=== PATIENT | male | born 1950 | race Caucasian/White ===

== ENCOUNTER 2020-05-14 16:33 | Outpatient (REF) | payer OTHER, SELFPAY | END 2020-05-14 16:34 | disposition home or self-care (01) | LOC: HO.LAB 16:33 | PROVIDERS: Visit Provider Internal Medicine | DX: Z20.822 Contact with and (suspected) exposure to COVID-19 (principal) | CPT/HCPCS: 36415; C9803; U0003 ==

== ENCOUNTER 2020-05-20 15:07 | Outpatient (REF) | payer OTHER, SELFPAY ==
--- NOTE | ~2020-05-20 | XR_ITS ---
EXAMINATION: XR CHEST CLINICAL INFORMATION: Respiratory infection COMPARISON: September 20, 2011 TECHNIQUE: 2 views of the chest were obtained. FINDINGS: No significant abnormality is noted involving the heart, lungs, mediastinum, bony thorax or soft tissues. XR/XR chest 2V IMPRESSION: No acute disease.
== END 2020-05-20 15:08 | disposition home or self-care (01) ==
LOC: HO.XRAY 15:07
PROVIDERS: PCP Internal Medicine; Visit Provider Internal Medicine
DX: J98.8 Other specified respiratory disorders (principal)
CPT/HCPCS: 71046

== ENCOUNTER 2020-08-10 11:03 | Outpatient (REF) | payer OTHER, SELFPAY ==
[2020-08-10 11:20] LABS: MANUAL DIFF FLAG NO
[2020-08-10 12:14] LABS: Basophils Absolute Auto 0.1 X10*3/uL (0.0-0.2); Basophils Percent Auto 1.1 % (0-2); Eosinophils Absolute Auto 0.5 X10*3/uL (0.0-0.4); Hematocrit 49.9 % (42-52); Hemoglobin 16.6 g/dl (14.0-18.0); Imm Gran Abs Auto 0.01 X10*3/uL (0.00-0.03); Imm Gran Pct Auto 0.1 % (0.0-0.4); Lymphocytes Absolute Auto 1.7 X10*3/uL (1.2-4.9); Lymphocytes Percent Auto 21.9 % (20-40); Mean Corpuscular HGB Conc 33.3 g/dl (31.0-36.0); Mean Corpuscular Hemoglobin 31.4 pg (27.0-33.0); Mean Corpuscular Volume 94.3 fL (80-98); Mean Platelet Volume 12.2 fL (9.4-12.4); Monocytes Absolute Auto 0.7 X10*3/uL (0.1-1.2); Monocytes Percent Auto 8.9 % (2-11); Neutrophils Absolute Auto 4.7 X10*3/uL (2.0-8.3); Platelet Count 206 X10*3/uL (160-400); Red Blood Count 5.29 X10*6/uL (4.60-5.80); Red Cell Distribution Width 12.4 % (11.0-16.0); White Blood Count 7.6 X10*3/uL (4.8-10.8)
[2020-08-10 12:28] LABS: Glucose Urine UA NEG (NEG); Leukocyte Esterase Urine NEG (NEG); Nitrite Urine NEG (NEG); PH 6.5 (5.0-8.0); Urine Blood NEG (NEG); Urine Ketones NEG (NEG); Urine Protein NEG (NEG-TRACE)
[2020-08-10 12:30] LABS: Appearance Urine CLEAR; Color Urine YELLOW
[2020-08-10 12:48] LABS: Alanine Aminotransferase 19 U/L (0-40); Albumin Level 4.1 g/dL (3.5-5.0); Alkaline Phosphatase 56 U/L (39-117); Anion Gap 13 (12-20); Aspartate Amino Transferase 22 U/L (5-37); Bilirubin Total 0.9 mg/dL (0.0-1.0); Blood Urea Nitrogen 15 mg/dL (9-16); Calcium 9.6 mg/dL (8.4-10.2); Carbon Dioxide 28 mmol/L (22-29); Chloride 105 mmol/L (96-108); Cholesterol 172 mg/dL; Estimated Glomerular Filt Rate > 60; Glucose Fasting 126 mg/dL (60-99); HDL Cholesterol 45 mg/dL; LDL Cholesterol Calculated 100 mg/dl; Potassium 4.1 mmol/L (3.3-5.1); Sodium 142 mmol/L (135-145); Total Protein 6.4 g/dL (6.5-8.0); Triglycerides 136 mg/dL
[2020-08-10 12:58] LABS: Reflex LDLD? No
[2020-08-10 13:11] LABS: PSA,Total (Free>4and<10) 2.38 ng/mL (0.00-4.00)
== END 2020-08-10 11:04 | disposition home or self-care (01) ==
LOC: HO.LNP 11:03
PROVIDERS: PCP Internal Medicine; Visit Provider Internal Medicine
DX: Z00.00 Encounter for general adult medical examination without abnormal findings (principal); R73.09 Other abnormal glucose; E78.00 Pure hypercholesterolemia, unspecified; E83.52 Hypercalcemia
CPT/HCPCS: 80053; 80061; 81003; 84153; 85025

== ENCOUNTER 2020-08-24 10:12 | Outpatient (REF) | payer OTHER, SELFPAY ==
[2020-08-25 13:57] LABS: Immunoglobulin A 88 mg/dL (70-320)
[2020-08-26 23:27] LABS: Transglutaminase Ab IgG 1 U/mL; Transglutaminase IgA 1 U/mL
[2020-08-27 20:26] LABS: Gliadin Deamidated IgA Ab 4 Units; Gliadin Deamidated IgG Ab 2 Units
[2020-09-02 12:46] LABS: Endomysial IgA Antibody Negative (Negative)
== END 2020-08-24 10:13 | disposition home or self-care (01) ==
LOC: HO.LAB 10:12
PROVIDERS: PCP Internal Medicine; Visit Provider Internal Medicine
DX: K58.0 Irritable bowel syndrome with diarrhea (principal)
CPT/HCPCS: 36415; 82784; 83516; 86255; 86256

== ENCOUNTER 2020-10-01 09:13 | Day surgery (SDC) | payer OTHER, SELFPAY ==
[2020-09-27 15:24] VITALS: BMI 27.0
--- NOTE | 2020-09-30 10:18 | HO.ANESPROP2 ---
Documented by User: Lluvia Stauffer 09/30/20 10:25 HPI - Anesthesia Eval Consult details Narrative: 70yo M for Colonoscopy Xarelto for PAF PMFSH Past Medical History Medical History (Updated 09/28/20 @ 09:57 by Clotilde Zaidi) CAD (coronary artery disease) COVID-19 vaccine series completed GERD (gastroesophageal reflux disease) Hiatal hernia History of asthma History of cardioversion History of IBS Hyperlipemia PAF (paroxysmal atrial fibrillation) Surgical History Surgical History (Updated 09/28/20 @ 10:08 by Clotilde Zaidi) Hx of cholecystectomy Hx of colonoscopy Hx of heart artery stent Social History Social History Patient Tobacco Use Status: Former Tobacco user Quit Date: Use of substances other than those prescribed or required for medical reasons: No Are you DNR?: No Advance Directives: No Advance Directives Information Provided: No Advance Directives on File: No Meds Allergies Allergy/AdvReac Type Severity Reaction Status Date / Time atorvastatin [Lipitor] Allergy Intermediate myalgia Verified 09/27/20 15:28 Statin intolerance Allergy Intermediate myalgia Uncoded 09/27/20 15:28 Home Medications Medication Instructions Recorded Confirmed Last Taken Type albuterol sulfate [ProAir HFA] 2 puff INHALATION BID 09/27/20 09/27/20 Unknown History hyoscyamine sulfate 1 tab PO BEDTIME 09/27/20 09/27/20 Unknown History rivaroxaban [Xarelto] 1 tab PO DAILY 09/27/20 09/27/20 Unknown History sotalol 1 tab PO BID 09/27/20 09/27/20 Unknown History Exam Exam Date and Time: September 30, 2020 1018 Height,Weight and Vital Signs: Height 5 ft 11 in Weight 87.997 kg Pertinent Lab Results Pertinent Lab Results: Laboratory Tests 08/10/20 08/10/20 07:50 07:50 WBC 7.6 Hgb 16.6 Hct 49.9 Plt Count 206 Sodium 142 Potassium 4.1 Chloride 105 Carbon Dioxide 28 BUN 15 Creatinine 0.93 Narrative Narrative: EKG 06/2020 SB @ 53, QT@490 Nuc stress 2018 ECG changes are mildly stress of ischemia, however, nuclear images showed no evidence of ischemia or prior infarct Assessment and Plan Assessment Anesthesia Assessment: Chart Reviewed Documented by User: Scarlett Gee 10/01/20 10:52 PMFSH Past Medical History Medical History (Updated 09/28/20 @ 09:57 by Clotilde Zaidi) CAD (coronary artery disease) COVID-19 vaccine series completed GERD (gastroesophageal reflux disease) Hiatal hernia History of asthma History of cardioversion History of IBS Hyperlipemia PAF (paroxysmal atrial fibrillation) Surgical History Surgical History (Updated 09/28/20 @ 10:08 by Clotilde Zaidi) Hx of cholecystectomy Hx of colonoscopy Hx of heart artery stent Social History Social History Patient Tobacco Use Status: Former Tobacco user Quit Date: Use of substances other than those prescribed or required for medical reasons: No Are you DNR?: No Advance Directives: No Advance Directives Information Provided: No Advance Directives on File: No Meds Allergies Allergy/AdvReac Type Severity Reaction Status Date / Time atorvastatin [Lipitor] Allergy Intermediate myalgia Verified 09/27/20 15:28 Statin intolerance Allergy Intermediate myalgia Uncoded 09/27/20 15:28 Home Medications Medication Instructions Recorded Confirmed Last Taken Type albuterol sulfate [ProAir HFA] 2 puff INHALATION BID 09/27/20 09/27/20 Unknown History hyoscyamine sulfate 1 tab PO BEDTIME 09/27/20 09/27/20 Unknown History rivaroxaban [Xarelto] 1 tab PO DAILY 09/27/20 09/27/20 Unknown History sotalol 1 tab PO BID 09/27/20 09/27/20 Unknown History Exam Airway Mallampati Class: II TM Dist: >3cm Neck ROM: Full Heart: RrR Lungs: CTa Assessment and Plan Assessment Anesthesia Assessment: Anesthesia Plan Discussed and Chart Reviewed Final Anesthetic Review NPO: Yes ASA Class: III Final Preanesthetic Review: No Changes in Pt Med Stat and Consent Obtained/Reviewed Patient Risk: Intermediate Procedure Risk: Intermediate Anesthetic Plan Anesthetic Plan: MAC: Disposition: Standard PACU
[2020-10-01 09:19] VITALS: BP 145/73; PULSE 57; RESP 18; TEMP 36.1; O2SAT 96
[2020-10-01] MEDS: Lactated Ringers 1,000 ML 100 ML IVCONT (09:42)
[2020-10-01 11:42] VITALS: BP 107/81; PULSE 55; RESP 16; TEMP 36.1; O2SAT 95
--- NOTE | 2020-10-01 11:50 | P.BOP_ITS ---
Brief Operative Note Date of Service: 10/01/20 Pre-op diagnosis: Heme + stool Post-op diagnosis: other (Colon polyps) Procedure: Colonoscopy to the cecum and TI with snare polypectomy with placement of Resolution clips Surgeon: Jose Simms Anesthesia: MAC Was an Android Developer used for this Procedure?: No Estimated blood loss (mL): 0 Pathology: other (A. Transverse colon polyps) Condition: stable Disposition: PACU
[2020-10-01 11:57] VITALS: BP 116/67; PULSE 48; RESP 16; TEMP 36.1; O2SAT 95
--- NOTE | 2020-10-01 12:39 | OP_ITS ---
SURGEON: Jose Simsm MD PREOPERATIVE DIAGNOSIS: Heme-positive stool. POSTOPERATIVE DIAGNOSIS: PROCEDURE PERFORMED: Colonoscopy to the cecum and terminal ileum with snare polypectomy and placement of resolution clips. Full consent has been obtained from him for this, including risks of bleeding and perforation. ESTIMATED BLOOD LOSS: COMPLICATIONS: ANESTHESIA: Monitored anesthesia care. ASSISTANTS: SPECIMENS: POSTOPERATIVE DIAGNOSES: Heme-positive stool, colon polyps, diverticulosis, and internal hemorrhoids. DESCRIPTION OF PROCEDURE: The patient was placed in the left lateral decubitus position. The digital rectal exam revealed no abnormalities. The Olympus video pediatric colonoscope was entered into the rectum and advanced easily to the cecum. Once in the cecum, I did identify normal-appearing cecal pouch with appendiceal orifice and a normal-appearing ileocecal valve. The terminal ileum was cannulated and appeared normal. The scope was withdrawn back in the colon. The entire cecum and ileocecal valve appeared normal. The scope was then slowly withdrawn assessing all mucosal surfaces carefully. Preparation was excellent after a lot of irrigation and suctioning. In the transverse colon, were 2 flat grossly adenomatous polyps between 6 and 10 mm in diameter. These were both snared and recovered by suction. The polypectomy sites appeared clean, without any sign of residual polyp nor bleeding. A single resolution clip was placed at each polypectomy site with good deployment and good hemostasis, given that he has to go back on his Xarelto. I did not visualize any other polyps, colitis, nor angiodysplasia. There was a mild amount of sigmoid diverticulosis. In the rectum, scope was retroflexed visualizing small internal hemorrhoids, but no other pathology. The rectal mucosa appeared normal. The scope was straightened out and withdrawn from the patient. He tolerated the procedure well and was returned to the recovery area in stable condition. IMPRESSION: 1. Colon polyps, status post snare polypectomy and placement of resolution clips. 2. Diverticulosis. 3. Internal hemorrhoids. PLAN: The results of the pathology will be checked. Given the gross appearance, I would recommend a repeat colonoscopy in 5 years. He was advised to resume his Xarelto tomorrow. He was advised to try the cholestyramine prescription that I gave him in regard to his loose bowel movements. He will see me in 5 years for a followup colonoscopy and would otherwise see me on a p.r.n. basis. MD LUBA Bryant/LENORA / [id number]
== END 2020-10-01 12:38 | disposition home or self-care (01) ==
PROVIDERS: PCP Internal Medicine; Visit Provider Internal Medicine
PROC: 0DJD8ZZ Inspection of Lower Intestinal Tract, Via Natural or Artificial Opening Endoscopic (ICD-10-PCS; CPT 45378; principal; 2020-10-01 10:40)
DX: R19.5 Other fecal abnormalities (principal); D12.3 Benign neoplasm of transverse colon; K58.0 Irritable bowel syndrome with diarrhea; K57.30 Diverticulosis of large intestine without perforation or abscess without bleeding; K64.8 Other hemorrhoids; K21.9 Gastro-esophageal reflux disease without esophagitis; I25.10 Atherosclerotic heart disease of native coronary artery without angina pectoris; Z98.61 Coronary angioplasty status; I48.0 Paroxysmal atrial fibrillation; Z79.01 Long term (current) use of anticoagulants; Z79.899 Other long term (current) drug therapy; Z90.49 Acquired absence of other specified parts of digestive tract; Z87.891 Personal history of nicotine dependence
CPT/HCPCS: 45385; 88305

== ENCOUNTER 2021-08-16 10:41 | Outpatient (REF) | payer OTHER, SELFPAY ==
[2021-08-16 10:45] LABS: MANUAL DIFF FLAG NO
[2021-08-16 11:20] LABS: Basophils Absolute Auto 0.1 X10*3/uL (0.0-0.2); Basophils Percent Auto 0.9 % (0-2); Eosinophils Absolute Auto 0.3 X10*3/uL (0.0-0.4); Eosinophils Percent Auto 3.6 % (0-4); Hematocrit 52.3 % (42.0-52.0); Hemoglobin 17.3 g/dl (14.0-18.0); Imm Gran Abs Auto 0.02 X10*3/uL (0.00-0.03); Imm Gran Pct Auto 0.3 % (0.0-0.4); Lymphocytes Percent Auto 25.5 % (20-40); Mean Corpuscular HGB Conc 33.1 g/dl (31.0-36.0); Mean Corpuscular Hemoglobin 31.4 pg (27.0-33.0); Mean Corpuscular Volume 94.9 fL (80.0-98.0); Mean Platelet Volume 12.5 fL (9.4-12.4); Monocytes Absolute Auto 0.7 X10*3/uL (0.1-1.2); Monocytes Percent Auto 8.8 % (2-11); Neutrophils Absolute Auto 4.8 x10*3/uL (2.0-8.3); Neutrophils Percent Auto 60.9 % (45-73); Platelet Count 209 X10*3/uL (160-400); Red Blood Count 5.51 X10*6/uL (4.60-5.80); Red Cell Distribution Width 13.2 % (11.0-16.0); White Blood Count 7.9 X10*3/uL (4.8-10.8)
[2021-08-16 11:37] LABS: Estimated Average Glucose 128 mg/dL; Hemoglobin A1c % 6.1 %
[2021-08-16 11:55] LABS: Alanine Aminotransferase 31 U/L (0-40); Alkaline Phosphatase 64 U/L (39-117); Anion Gap 10 (12-20); Aspartate Amino Transferase 29 U/L (5-37); Bilirubin Total 0.9 mg/dL (0.0-1.0); Blood Urea Nitrogen 16 mg/dL (9-16); Calcium 9.9 mg/dL (8.4-10.2); Carbon Dioxide 27 mmol/L (22-29); Chloride 108 mmol/L (96-108); Cholesterol 151 mg/dL; Estimated Glomerular Filt Rate > 60; Glucose Fasting 118 mg/dL (60-99); HDL Cholesterol 51 mg/dL; LDL Cholesterol Calculated 84 mg/dl; Potassium 4.3 mmol/L (3.3-5.1); Sodium 141 mmol/L (135-145); Total Protein 6.6 g/dL (6.5-8.0); Triglycerides 81 mg/dL
[2021-08-16 12:03] LABS: PSA,Total (Free>4and<10) 2.24 ng/mL (0.00-4.00)
[2021-08-16 12:23] LABS: Appearance Urine CLEAR; Color Urine YELLOW; Glucose Urine UA NEG (NEG); Leukocyte Esterase Urine NEG (NEG); Nitrite Urine NEG (NEG); Specific Gravity - Urine <= 1.005 (1.005-1.025); Urine Blood NEG (NEG); Urine Ketones NEG (NEG); Urine Protein NEG (NEG-TRACE)
== END 2021-08-16 10:42 | disposition home or self-care (01) ==
LOC: HO.LNP 10:41
PROVIDERS: PCP Internal Medicine; Visit Provider Internal Medicine
DX: Z00.00 Encounter for general adult medical examination without abnormal findings (principal); Z12.5 Encounter for screening for malignant neoplasm of prostate; R73.03 Prediabetes; E78.00 Pure hypercholesterolemia, unspecified; E83.52 Hypercalcemia; I25.10 Atherosclerotic heart disease of native coronary artery without angina pectoris
CPT/HCPCS: 80053; 80061; 81003; 83036; 84153; 85025

== ENCOUNTER 2022-02-17 10:44 | Outpatient (REF) | payer OTHER, SELFPAY ==
[2022-02-17 11:23] LABS: Alanine Aminotransferase 24 U/L (0-40); Albumin Level 4.2 g/dL (3.5-5.0); Alkaline Phosphatase 67 U/L (39-117); Aspartate Amino Transferase 27 U/L (5-37); Bilirubin Direct 0.3 mg/dL (0.0-0.5); Bilirubin Total 0.9 mg/dL (0.0-1.0); Cholesterol 167 mg/dL; Glucose Fasting 127 mg/dL (60-99); HDL Cholesterol 48 mg/dL; LDL Cholesterol Calculated 101 mg/dl; Total Protein 6.7 g/dL (6.5-8.0); Triglycerides 94 mg/dL
[2022-02-17 11:29] LABS: Estimated Average Glucose 120 mg/dL; Hemoglobin A1c % 5.8 %
[2022-02-17 13:29] LABS: Reflex LDLD? No
== END 2022-02-17 10:45 | disposition home or self-care (01) ==
LOC: HO.LNP 10:44
PROVIDERS: Visit Provider Internal Medicine
DX: R73.03 Prediabetes (principal); E78.00 Pure hypercholesterolemia, unspecified
CPT/HCPCS: 80061; 80076; 82947; 83036

== ENCOUNTER 2022-08-17 10:38 | Outpatient (REF) | payer OTHER, SELFPAY ==
[2022-08-17 10:41] LABS: MANUAL DIFF FLAG NO
[2022-08-17 10:46] LABS: Basophils Absolute Auto 0.1 X10*3/uL (0.0-0.2); Eosinophils Absolute Auto 0.3 X10*3/uL (0.0-0.4); Eosinophils Percent Auto 3.2 % (0-4); Hematocrit 52.9 % (42.0-52.0); Hemoglobin 17.9 g/dl (14.0-18.0); Imm Gran Abs Auto 0.02 X10*3/uL (0.00-0.03); Imm Gran Pct Auto 0.2 % (0.0-0.4); Lymphocytes Absolute Auto 2.1 X10*3/uL (1.2-4.9); Lymphocytes Percent Auto 25.5 % (20-40); Mean Corpuscular HGB Conc 33.8 g/dl (31.0-36.0); Mean Corpuscular Volume 94.6 fL (80.0-98.0); Mean Platelet Volume 12.7 fL (9.4-12.4); Monocytes Absolute Auto 0.7 X10*3/uL (0.1-1.2); Monocytes Percent Auto 8.7 % (2-11); Neutrophils Absolute Auto 5.1 x10*3/uL (2.0-8.3); Neutrophils Percent Auto 61.4 % (45-73); Platelet Count 204 X10*3/uL (160-400); Red Blood Count 5.59 X10*6/uL (4.60-5.80); Red Cell Distribution Width 12.8 % (11.0-16.0); White Blood Count 8.4 X10*3/uL (4.8-10.8)
[2022-08-17 10:49] LABS: Appearance Urine Clear; Color Urine Yellow; Glucose Urine UA Negative (Negative); Leukocyte Esterase Urine Negative (Negative); Nitrite Urine Negative (Negative); PH 6.5 (5.0-9.0); Urine Blood Negative (Negative); Urine Ketones Negative (Negative); Urine Protein Negative (Neg-Trace)
[2022-08-17 10:56] LABS: Bacteria Urine None Seen (None Seen); Hyaline Casts Urine 0-2 /LPF (0-2); RBC Urine 0-2 /HPF (0-2); Squamous Epithelial Cell Urine 0-2 /HPF (0-2); WBC Urine 0-5 /HPF (0-5)
[2022-08-17 11:01] LABS: Estimated Average Glucose 123 mg/dL; Hemoglobin A1c % 5.9 %
[2022-08-17 11:06] LABS: Alanine Aminotransferase 23 U/L (0-40); Alkaline Phosphatase 67 U/L (39-117); Anion Gap 13 (12-20); Aspartate Amino Transferase 25 U/L (5-37); Bilirubin Total 1.1 mg/dL (0.0-1.0); Blood Urea Nitrogen 18 mg/dL (9-16); Calcium 10.2 mg/dL (8.4-10.2); Carbon Dioxide 28 mmol/L (22-29); Chloride 106 mmol/L (96-108); Cholesterol 148 mg/dL; Estimated Glomerular Filt Rate 55; Glucose Fasting 138 mg/dL (60-99); HDL Cholesterol 47 mg/dL; LDL Cholesterol Calculated 81 mg/dl; Potassium 4.6 mmol/L (3.3-5.1); Sodium 142 mmol/L (135-145); Total Protein 6.3 g/dL (6.5-8.0); Triglycerides 102 mg/dL
[2022-08-17 11:26] LABS: PSA,Total (Free>4and<10) 2.78 ng/mL (0.00-4.00)
[2022-08-17 12:19] LABS: Creatinine Urine 116.44 mg/dL; Microalbum/Creatinine Ratio Ur 12.8 ug/mg cr
== END 2022-08-17 10:39 | disposition home or self-care (01) ==
LOC: HO.LNP 10:38
PROVIDERS: PCP Internal Medicine; Visit Provider Internal Medicine
DX: Z00.00 Encounter for general adult medical examination without abnormal findings (principal); Z12.5 Encounter for screening for malignant neoplasm of prostate; E78.00 Pure hypercholesterolemia, unspecified; R73.03 Prediabetes
CPT/HCPCS: 80053; 80061; 81001; 82043; 83036; 84153; 85025

== ENCOUNTER 2022-08-24 15:31 | Outpatient (REF) | payer OTHER, SELFPAY ==
[2022-08-24 16:59] LABS: Digoxin < 0.2 ng/mL (0.8-2.0)
== END 2022-08-24 15:32 | disposition home or self-care (01) ==
LOC: HO.LNP 15:31
PROVIDERS: Visit Provider Internal Medicine
DX: I25.10 Atherosclerotic heart disease of native coronary artery without angina pectoris (principal); Z79.899 Other long term (current) drug therapy
CPT/HCPCS: 80162

== ENCOUNTER 2023-02-26 13:27 | Outpatient (REF) | payer OTHER, SELFPAY ==
[2023-02-27 14:44] LABS: Influenza A PCR NEGATIVE (Negative); Influenza B PCR NEGATIVE (Negative); Resp Syncy Virus RNA Qual PCR NEGATIVE (Negative); SARS COV2 PCR INHOUSE POSITIVE (Negative)
== END 2023-02-26 13:28 | disposition home or self-care (01) ==
LOC: HO.LNP 13:27
PROVIDERS: Visit Provider Internal Medicine
DX: R43.9 Unspecified disturbances of smell and taste (principal); Z20.822 Contact with and (suspected) exposure to COVID-19
CPT/HCPCS: 0241U

== ENCOUNTER 2023-02-26 14:49 | Outpatient (AMB) | payer OTHER, SELFPAY ==
--- NOTE | 2023-02-26 16:01 | AM.OFFWIN_ITS ---
Intake Vital Signs 02/26/23 16:05 Height 5 ft 11 in Weight 190 lb 2 oz BMI 26.5 BP 112/70 Blood Pressure Location Lt brachial Position Sitting Pulse 80 Pulse Source Pulse Oximeter Temp 97.8 F Temp Source Temporal Artery Scan Pulse Oximetry (%) 96 Oxygen Delivery Method Room Air Intake Visit Reasons: EP Cough congestion lost voice (lobby masked) Intake Note: pt is here for c.o cough and congestion Patient Tobacco Use Status: Former Tobacco user Quit Date: Allergies atorvastatin [Lipitor] Allergy (Intermediate, Verified 02/26/23 16:38) myalgia Statin intolerance Allergy (Intermediate, Uncoded 02/26/23 16:38) myalgia Medication List - Last Reconciled 02/26/23 by Avtar Muller MD albuterol sulfate 90 mcg/actuation (ProAir HFA) 2 puffs inhalation BID azithromycin (Zithromax) take 500 mg today (day 1), then 250 mg for 4 days (days 2-5) PO diltiazem HCl ER (Tiadylt ER) 360 mg PO DAILY hyoscyamine sulfate ER 1 tab PO BEDTIME metoprolol succinate ER 50 mg PO BID pravastatin 20 mg PO DAILY prednisone 60 mg (3 x 20 mg) PO DAILY rivaroxaban (Xarelto) 1 tab PO DAILY sotalol 1 tab PO BID Do you need a note to return to daycare/school/sports/work: Yes HPI EP Cough congestion lost voice (lobby masked) HPI Details Patient presents for a sick visit. Reporting symptoms of sinus congestion, sore throat and difficulty swallowing. Low-grade fever. No family member is sick. No recent travel. Patient reports symptoms of malaise and fatigue. [facility] Medical History (Updated 09/28/20 @ 09:57 by Clotilde Zaidi RN) History of cardioversion COVID-19 vaccine series completed CAD (coronary artery disease) History of asthma PAF (paroxysmal atrial fibrillation) History of IBS Hyperlipemia Hiatal hernia GERD (gastroesophageal reflux disease) Surgical History (Updated 09/28/20 @ 10:08 by Clotilde Zaidi RN) Hx of cholecystectomy Hx of colonoscopy Hx of heart artery stent Social History Patient Tobacco Use Status: Former Tobacco user Quit Date: Physical Exam Vital Signs: Last Vital Signs Temp 97.8 F 02/26/23 16:05 Pulse 80 02/26/23 16:05 BP 112/70 02/26/23 16:05 Pulse Ox 96 02/26/23 16:05 Oxygen Delivery Method Room Air 02/26/23 16:05 BMI result Body Mass Index 26.5 Const General: cooperative and healthy appearing Nutritional Appearance: well nourished Orientation/consciousness: patient oriented x3 Limitations: no limitations HEENT Head: Yes normal to inspection Eyes General: appearance normal, both eyes and all related structures Neck Neck: Yes normal visual inspection Chest Chest palpation & inspection: normal palpation of entire chest wall Resp Effort & Inspection: normal respiratory effort Neuro General: patient oriented x3 Assessment & Plan Assessment & Plan (1) Upper respiratory tract infection: Code(s): J06.9 - Acute upper respiratory infection, unspecified Plan: Antibiotics ordered. Increase fluid intake. Tylenol for aches and pains. If symptoms worsen, follow-up here for a recheck. Orders: Orders SARS-CoV2/FLU/RSV Today R43.9 - Unspecified disturbances of smell and taste Medications: New azithromycin (Zithromax) take 500 mg today (day 1), then 250 mg for 4 days (days 2-5) PO 6 tabs 0RF prednisone 60 mg (3 x 20 mg) PO DAILY 9 tabs 0RF Coding Level of Care Code Est Pt Level 4 (34717) Diagnoses Upper respiratory tract infection J06.9
[2023-02-26 16:05] VITALS: BP 112/70; PULSE 80; TEMP 36.6; O2SAT 96; BMI 26.5
== END 2023-02-26 16:45 | disposition home or self-care (01) ==
PROVIDERS: PCP Internal Medicine; Visit Provider Internal Medicine
DX: J06.9 Acute upper respiratory infection, unspecified (principal)
CPT/HCPCS: 99214

== ENCOUNTER 2023-03-22 10:44 | Outpatient (REF) | payer OTHER, SELFPAY ==
[2023-03-22 11:16] LABS: Cholesterol 166 mg/dL (<200); HDL Cholesterol 54 mg/dL (>40); LDL Cholesterol Calculated 94 mg/dL (<100); Triglycerides 92 mg/dL (<150)
[2023-03-22 11:18] LABS: Alanine Aminotransferase 23 U/L (0-40); Albumin Level 3.9 g/dL (3.5-5.0); Alkaline Phosphatase 68 U/L (39-117); Aspartate Amino Transferase 26 U/L (5-37); Bilirubin Direct 0.3 mg/dL (0.0-0.5); Bilirubin Total 0.9 mg/dL (0.0-1.0); Glucose Fasting 123 mg/dL (60-99); Total Protein 6.6 g/dL (6.5-8.0)
[2023-03-22 11:34] LABS: Estimated Average Glucose 131 mg/dL; Hemoglobin A1c % 6.2 % (<6.0)
[2023-03-22 12:15] LABS: Reflex LDLD? No
== END 2023-03-22 10:45 | disposition home or self-care (01) ==
LOC: HO.LNP 10:44
PROVIDERS: Visit Provider Internal Medicine
DX: E78.00 Pure hypercholesterolemia, unspecified (principal); R73.03 Prediabetes
CPT/HCPCS: 80061; 80076; 82947; 83036

== ENCOUNTER 2023-08-23 11:58 | Outpatient (REF) | payer OTHER, SELFPAY ==
[2023-08-23 12:04] LABS: MANUAL DIFF FLAG NO
[2023-08-23 12:37] LABS: Estimated Average Glucose 131 mg/dL; Hemoglobin A1c % 6.2 % (<6.0)
[2023-08-23 12:40] LABS: Basophils Absolute Auto 0.1 X10*3/uL (0.0-0.2); Basophils Percent Auto 0.9 % (0-2); Eosinophils Absolute Auto 0.3 X10*3/uL (0.0-0.4); Eosinophils Percent Auto 4.1 % (0-4); Hemoglobin 17.5 g/dl (14.0-18.0); Imm Gran Abs Auto 0.03 X10*3/uL (0.00-0.03); Imm Gran Pct Auto 0.4 % (0.0-0.4); Lymphocytes Absolute Auto 1.8 X10*3/uL (1.2-4.9); Lymphocytes Percent Auto 22.7 % (20-40); Mean Corpuscular HGB Conc 34.3 g/dl (31.0-36.0); Mean Corpuscular Hemoglobin 32.3 pg (27.0-33.0); Mean Corpuscular Volume 94.1 fL (80.0-98.0); Monocytes Absolute Auto 0.6 X10*3/uL (0.1-1.2); Monocytes Percent Auto 7.8 % (2-11); Neutrophils Absolute Auto 5.1 x10*3/uL (2.0-8.3); Neutrophils Percent Auto 64.1 % (45-73); Platelet Count 171 X10*3/uL (160-400); Red Blood Count 5.42 X10*6/uL (4.60-5.80); Red Cell Distribution Width 13.1 % (11.0-16.0); White Blood Count 7.9 X10*3/uL (4.8-10.8)
[2023-08-23 12:45] LABS: Alanine Aminotransferase 23 U/L (0-40); Alkaline Phosphatase 61 U/L (39-117); Anion Gap 14 (12-20); Aspartate Amino Transferase 25 U/L (5-37); Blood Urea Nitrogen 14 mg/dL (9-16); Calcium 9.9 mg/dL (8.4-10.2); Carbon Dioxide 24 mmol/L (22-29); Chloride 107 mmol/L (96-108); Cholesterol 150 mg/dL (<200); Estimated Glomerular Filt Rate > 60; Glucose Random 137 mg/dL (60-115); HDL Cholesterol 52 mg/dL (>40); LDL Cholesterol Calculated 83 mg/dL (<100); Potassium 4.1 mmol/L (3.3-5.1); Sodium 141 mmol/L (135-145); Total Protein 6.5 g/dL (6.5-8.0); Triglycerides 78 mg/dL (<150)
[2023-08-23 12:53] LABS: Digoxin < 0.2 ng/mL (0.8-2.0)
[2023-08-23 12:57] LABS: PSA,Total (Free>4and<10) 2.76 ng/mL (0.00-4.00)
== END 2023-08-23 11:59 | disposition home or self-care (01) ==
LOC: HO.LNP 11:58
PROVIDERS: Visit Provider Internal Medicine
DX: Z00.00 Encounter for general adult medical examination without abnormal findings (principal); R73.09 Other abnormal glucose; E78.00 Pure hypercholesterolemia, unspecified; E83.52 Hypercalcemia
CPT/HCPCS: 80053; 80061; 80162; 83036; 84153; 85025

== ENCOUNTER 2023-08-30 15:57 | Outpatient (REF) | payer MEDICARE, SELFPAY ==
[2023-08-30 16:29] LABS: Appearance Urine Clear; Color Urine Yellow; Glucose Urine UA Negative (Negative); Leukocyte Esterase Urine Negative (Negative); Nitrite Urine Negative (Negative); PH 6.5 (5.0-9.0); Urine Blood Negative (Negative); Urine Ketones Negative (Negative); Urine Protein Negative (Neg-Trace)
[2023-08-30 16:34] LABS: Bacteria Urine None Seen (None Seen); Hyaline Casts Urine 0-2 /LPF (0-2); RBC Urine 0-2 /HPF (0-2); Squamous Epithelial Cell Urine 0-2 /HPF (0-2); WBC Urine 0-5 /HPF (0-5)
[2023-08-30 17:36] LABS: Creatinine Urine 97.88 mg/dL; Microalbumin Urine < 5.0 mg/L
== END 2023-08-30 15:58 | disposition home or self-care (01) ==
LOC: HO.LNP 15:57
PROVIDERS: Visit Provider Internal Medicine
DX: I25.10 Atherosclerotic heart disease of native coronary artery without angina pectoris (principal); E78.00 Pure hypercholesterolemia, unspecified; R73.09 Other abnormal glucose
CPT/HCPCS: 81001; 82043; 82570

== ENCOUNTER 2024-03-06 15:30 | Outpatient (REF) | payer MEDICARE, SELFPAY ==
--- NOTE | ~2024-03-06 | XR_ITS ---
EXAMINATION: XR CHEST CLINICAL INFORMATION: PAROXYSMAL ATRIAL FIBRILLATION COMPARISON: X-ray dated May 20, 2020. TECHNIQUE: 2 views of the chest were obtained. FINDINGS: No consolidation pleural effusion or pneumothorax. No hyperinflation. Cardiomediastinal silhouette demonstrates calcified plaque aortic arch. Calcification throughout the anterior longitudinal ligament axial skeleton. No acute fracture or gross listhesis. Osteopenia versus process. XR/XR chest 2V IMPRESSION: No acute airspace disease. Concerning ankylosing spondylitis, thoracic spine. Electronically signed by: Bryan Rivera MD 03/07/2024 08:24 AM IVONNE
== END 2024-03-06 15:31 | disposition home or self-care (01) ==
LOC: HO.XRAY 15:30
PROVIDERS: PCP Internal Medicine; Visit Provider Internal Medicine
DX: I48.0 Paroxysmal atrial fibrillation (principal)
CPT/HCPCS: 71046

== ENCOUNTER → 2024-03-06 15:36 | Outpatient (BNV) | payer OTHER, MEDICARE, SELFPAY | PROVIDERS: PCP Internal Medicine; Visit Provider Radiology Diagnostic Radiology | DX: I48.0 Paroxysmal atrial fibrillation (principal) | CPT/HCPCS: 71046 ==

== ENCOUNTER 2024-03-11 13:21 | Outpatient (REF) | payer MEDICARE, SELFPAY | END 2024-03-11 13:22 | disposition home or self-care (01) | LOC: HO.XRAY 13:21 | PROVIDERS: PCP Internal Medicine; Visit Provider Internal Medicine | DX: M45.4 Ankylosing spondylitis of thoracic region (principal) | CPT/HCPCS: 72100 ==

== ENCOUNTER 2024-08-28 10:42 | Outpatient (REF) | payer MEDICARE, SELFPAY ==
[2024-08-28 11:06] LABS: Appearance Urine Clear; Color Urine Yellow; Glucose Urine UA Negative (Negative); Leukocyte Esterase Urine Negative (Negative); Nitrite Urine Negative (Negative); PH 7.5 (5.0-9.0); Urine Blood Negative (Negative); Urine Ketones Negative (Negative); Urine Protein Negative (Neg-Trace)
[2024-08-28 11:10] LABS: Bacteria Urine None Seen (None Seen); Hyaline Casts Urine 0-2 /LPF (0-2); RBC Urine 0-2 /HPF (0-2); Squamous Epithelial Cell Urine 0-2 /HPF (0-2); WBC Urine 0-5 /HPF (0-5)
[2024-08-28 11:15] LABS: Estimated Average Glucose 131 mg/dL; Hemoglobin A1C 193.7043 umol/L; Hemoglobin A1c % 6.2 % (<6.0); Total Hemoglobin (HGBA1C) 4354.5219 umol/L
[2024-08-28 11:19] LABS: Basophils Absolute Auto 0.1 X10*3/uL (0.0-0.2); Basophils Percent Auto 0.8 % (0-2); Eosinophils Absolute Auto 0.5 X10*3/uL (0.0-0.4); Eosinophils Percent Auto 6.3 % (0-4); Hemoglobin 17.5 g/dl (14.0-18.0); Imm Gran Abs Auto 0.04 X10*3/uL (0.00-0.03); Imm Gran Pct Auto 0.5 % (0.0-0.4); Lymphocytes Absolute Auto 1.9 X10*3/uL (1.2-4.9); Lymphocytes Percent Auto 24.3 % (20-40); MANUAL DIFF FLAG SCAN; Mean Corpuscular HGB Conc 34.3 g/dl (31.0-36.0); Mean Corpuscular Hemoglobin 32.2 pg (27.0-33.0); Mean Corpuscular Volume 93.9 fL (80.0-98.0); Monocytes Absolute Auto 0.6 X10*3/uL (0.1-1.2); Monocytes Percent Auto 8.3 % (2-11); Neutrophils Absolute Auto 4.5 x10*3/uL (2.0-8.3); Neutrophils Percent Auto 59.8 % (45-73); PLT CLUMP 1; Red Blood Count 5.43 X10*6/uL (4.60-5.80); Red Cell Distribution Width 13.5 % (11.0-16.0); SCAN SMEAR FLAG 1
[2024-08-28 11:22] LABS: Alanine Aminotransferase 26 U/L (0-40); Alkaline Phosphatase 70 U/L (39-117); Anion Gap 11 (12-20); Aspartate Amino Transferase 33 U/L (5-37); Bilirubin Total 0.8 mg/dL (0.0-1.0); Blood Urea Nitrogen 14 mg/dL (9-16); Calcium 10.5 mg/dL (8.4-10.2); Carbon Dioxide 29 mmol/L (22-29); Chloride 107 mmol/L (96-108); Cholesterol 163 mg/dL (<200); Estimated Glomerular Filt Rate > 60; Glucose Fasting 145 mg/dL (60-99); HDL Cholesterol 52 mg/dL (>40); LDL Cholesterol Calculated 95 mg/dL (<100); Potassium 4.4 mmol/L (3.3-5.1); Sodium 143 mmol/L (135-145); Total Protein 6.6 g/dL (6.5-8.0); Triglycerides 82 mg/dL (<150)
[2024-08-28 11:42] LABS: PSA,Total (Free>4and<10) 4.37 ng/mL (0.00-4.00)
[2024-08-28 11:44] LABS: Platelet Count 153 X10*3/uL (160-400); White Blood Count 7.6 X10*3/uL (4.8-10.8)
[2024-08-28 11:45] LABS: Mean Platelet Volume 12.8 fL (9.4-12.4); SLIDE REVIEW VERIFIED
--- OUTSIDE RECORDS SUMMARY | 2024-08-28 11:49 | XMS_ITS | Patient Health Record ---
Author Organization [facility] Address [address] [place] [address] Care Team Providers Care Reed Or Wind Instrument Repairer Name Role Phone Herman Figueroa MD Primary Care Provider Jose Gonzalez Unavailable [phone] Allergies Allergen (clinical drug ingredient) Drug/Non Drug Allergy documented on EMR Reaction Allergy Type Onset Date Status seasonal allergies (uncoded) Unknown Allergy Active Reason For Referral No Information Medications Medication SIG (Take, Route, Frequency, Duration) Notes Start Date End Date Status Cholestyramine 4 GM/DOSE 1/2 to 1 scoop Orally QD or BID for loose stools for 30 day(s) 08/24/2020 Active Hyoscyamine Sulfate ER 0.375 MG 1 tablet Orally every 12 hrs for 30 day(s) QD in afternoon Active Sotalol HCl 120 MG 1 tablet Orally bid Active Xarelto 20 MG 1 tablet with food Orally Once a day for 30 day(s) Active ProAir HFA Active Pravastatin Sodium 20 MG 1 tablet Orally Once a day Active Immunizations Vaccine Route Administration Date Status Comme nts Influenza Unknown 12/16/2019 Administered Problems Problem Type SNOMED Code ICD Code Onset Dates Problem Status W/U Status Risk Notes Problem 654365408 Irritable bowel syndrome with diarrhea (K58.0) Active confirmed Problem 78675868 Heme + stool (R19.5) Active confirmed Problem Diverticulosis of colon (768348090) Diverticulosis of colon (K57.30) Active confirmed Plan Of Treatment Pending Test Test Name Order Date CELIAC PANEL #10 08/24/2020 Pathology 10/01/2020 Future Test Test Name Order Date COLONOSCOPY 07/04/2012 COLONOSCOPY 08/24/2020 Insurance Providers Payer Name Payer Address Payer Phone Subscriber Number Group Number Insured Name Patient Relationship to Insured Coverage Start Date Coverage End Date [facility] [address] [place] [id number] [phone] [id number] GINA RODRIGUEZ Self - patient is the insured Medical (General) History Medical History History ICD Code Hiatal hernia-occasional GERD-better wit h change of diet Cardiac stent placement x 1 in 2008-no M I-fine since Allergies-? asthma Denies CT,DM,CVA,renal disease Hyperlipidemia Afib Negative screening colonoscopy in 08/2012 IBS-longstanding > 20 years Surgical History Surgery Date(Month/Year) Cholecystecomy in 2001 Cyst removed from back
--- OUTSIDE RECORDS SUMMARY | 2024-08-28 11:49 | XMS_ITS ---
Author Organization Herman Figueroa MD Address [address] [place] [phone] Care Team Providers Care Lens Silverer Name Role Phone Herman Figueroa Primary Care Provider REASON FOR VISIT REFILL XARELTO Medications Medication SIG (Take, Route, Frequency, Duration) Notes Start Date End Date Status Xarelto 20 mg TAKE 1 TABLET DAILY WITH FOOD Orally Once a day for 90 days Active Encounters Encounter Location Date Provider Diagnosis Herman Figueroa MD [address] [place] [phone] 07/08/2024 Herman Figueroa Paroxysmal atrial fibrillation I48.0 Assessments Encounter Date Diagnosis (ICD Code) Assessment Notes Treatment Notes Treatment Clinical Notes Section Notes 07/08/2024 Paroxysmal atrial fibrillation (ICD-10 - I48.0) Plan Of Treatment Medication Medication Name Sig Start Date Stop Date Notes Xarelto 20 mg TAKE 1 TABLET DAILY WITH FOOD Orally Once a day for 90 days Next Appt Details Provider Name:Herman gardner, 09/04/2024 02:30:00 PM, [address], [address], [place], [place], [phone], Progress Notes * Agusto RODRIGUEZ RDOB:1950 ( 73 yo M)Acc No.[id number]:07/08/2024 Patient:?Agusto RODRIGUEZ :1950???Age:73 Y???Sex:Male Address:[address] [place] [address] * Refills? Refill Xarelto Tablet, 20 mg, Orally, 90, TAKE 1 TABLET DAILY WITH FOOD, Once a day, 90 days, Refills=5 * true * Date:? Generated for Hamilton walker/Edgardo/Lisasmitting on:?08/28/2024 11:48 AM EDT
--- OUTSIDE RECORDS SUMMARY | 2024-08-28 11:49 | XMS_ITS ---
Author Organization Herman Figueroa MD Address [address] [place], [place] [id number] Care Team Providers Care Bomb Technician Name Role Phone Carolina Herman Primary Care Provider [phone] Allergies Allergen (clinical drug ingredient) Drug/Non Drug Allergy documented on EMR Reaction Allergy Type Onset Date Status atorvastatin Lipitor myalgia Drug Allergy Acti ve Results Component Value Reference Range Notes Complete Blood Count Auto Di ff (Not yet reviewed by provider) Interpretation: Performing Lab:[facility], [address] [place] [id number] Notes/Report: White Blood Count 7.6 4.8-10.8 X10*3/uL Red Blood Count 5.43 4.60-5.80 X10*6/uL Hemoglobin 17.5 14.0-18.0 g/dl Hematocrit 51.0 42.0-52.0 % Mean Corpuscular Volume 93.9 80.0-98.0 fL Mean Corpuscular Hemoglobin 32.2 27.0-33.0 pg Mean Corpuscular HGB Conc 34.3 31.0-36.0 g/dl Red Cell Distribution Width 13.5 11.0-16.0 % Platelet Count 153 160-400 X10*3/uL Mean Platelet Volume 12.8 9.4-12.4 fL Neutrophils Percent Auto 59.8 45-73 % Imm Gran Pct Auto 0.5 0.0-0.4 % Lymphocytes Percent Auto 24.3 20-40 % Monocytes Percent Auto 8.3 2-11 % Eosinophils Percent Auto 6.3 0-4 % Basophils Percent Auto 0.8 0-2 % NRBC Pct Auto 0.0 0.0-0.2 /100WBC Neutrophils Absolute Auto 4.5 2.0-8.3 x10*3/u L Imm Gran Abs Auto 0.04 0.00-0.03 X10*3/uL Lymphocytes Absolute Auto 1.9 1.2-4.9 X10*3/u L Monocytes Absolute Auto 0.6 0.1-1.2 X10*3/uL Eosinophils Absolute Auto 0.5 0.0-0.4 X10*3/u L Basophils Absolute Auto 0.1 0.0-0.2 X10*3/uL NRBC Abs Auto 0.000 0.0-0.012 X10*3/uL White Blood Count 7.6 4.8-10.8 X10*3/uL Red Blood Count 5.43 4.60-5.80 X10*6/uL Hemoglobin 17.5 14.0-18.0 g/dl Hematocrit 51.0 42.0-52.0 % Mean Corpuscular Volume 93.9 80.0-98.0 fL Mean Corpuscular Hemoglobin 32.2 27.0-33.0 pg Mean Corpuscular HGB Conc 34.3 31.0-36.0 g/dl Red Cell Distribution Width 13.5 11.0-16.0 % Platelet Count 153 160-400 X10*3/uL Mean Platelet Volume 12.8 9.4-12.4 fL Neutrophils Percent Auto 59.8 45-73 % Imm Gran Pct Auto 0.5 0.0-0.4 % Lymphocytes Percent Auto 24.3 20-40 % Monocytes Percent Auto 8.3 2-11 % Eosinophils Percent Auto 6.3 0-4 % Basophils Percent Auto 0.8 0-2 % NRBC Pct Auto 0.0 0.0-0.2 /100WBC Neutrophils Absolute Auto 4.5 2.0-8.3 x10*3/u L Imm Gran Abs Auto 0.04 0.00-0.03 X10*3/uL Lymphocytes Absolute Auto 1.9 1.2-4.9 X10*3/u L Monocytes Absolute Auto 0.6 0.1-1.2 X10*3/uL Eosinophils Absolute Auto 0.5 0.0-0.4 X10*3/u L Basophils Absolute Auto 0.1 0.0-0.2 X10*3/uL NRBC Abs Auto 0.000 0.0-0.012 X10*3/uL CORRECTED REPORT CORRECTED REPORT Comprehensive [place]. Panel Fa st (Not yet reviewed by provider) Interpretation: Performing Lab:[facility], [address] [place] [phone] Notes/Report: Sodium 143 135-145 mmol/L Potassium 4.4 3.3-5.1 mmol/L Chloride 107 96-108 mmol/L Carbon Dioxide 29 22-29 mmol/L Anion Gap 11 12-20 Blood Urea Nitrogen 14 9-16 mg/dL Creatinine 1.07 0.5-1.4 mg/dL Estimated Glomerular Filt Rate > 60 Chronic Kidney Disease: Estimated GFR < 60 mL/min/1.73m2 Severe Kidney Disease: Estimated GFR < 15 mL/min/1.73m2 Glucose Fasting 145 60-99 mg/dL A fasting glucose of 126 mg/dl or greater on more than one occasion is considered diagnostic of diabetes. Calcium 10.5 8.4-10.2 mg/dL Bilirubin Total 0.8 0.0-1.0 mg/dL Aspartate Amino Transferase 33 5-37 U/L Alanine Aminotransferase 26 0-40 U/L Total Protein 6.6 6.5-8.0 g/dL Albumin Level 4.0 3.5-5.0 g/dL Alkaline Phosphatase 70 39-117 U/L Lipid Panel (Not yet reviewe d by provider) Interpretation: Performing Lab:[address] [phone] Notes/Report: Triglycerides 82 <150 mg/dL Desirable Triglyceride: less than 150 mg/dL Borderline High Triglyceride 150-199 mg/dL High Triglyceride: 200-499 mg/dL Very High Triglyceride: greater than or equal to 5OO mg/dL Cholesterol 163 <200 mg/dL Desirable Cholesterol: less than 200 mg/dL Borderline High Cholesterol: 200-239 mg/dL High Cholesterol: greater than 239 mg/dL LDL Cholesterol Calculated 95 <100 mg/dL Desirable LDL: less than 100 mg/dL Near Optimal/Above Optimal LDL: 110-129 mg/dL Borderline High LDL: 130-159 mg/dL High LDL: 160-189 mg/dL Very High LDL: greater than or equal to 190 mg/dL HDL Cholesterol 52 >40 mg/dL Desirable HDL: greater than 40 mg/dL Note: This HDL assay may give artificially low results in patients with liver disease. PSA,Total (Free>4and<10) (No t yet reviewed by provider) Interpretation: Performing Lab:[address] [phone] Notes/Report: PSA,Total (Free>4and<10) 4.37 0.00-4.00 ng/mL PSA methodology: Briceño Alinity i Chemiluminescent Microparticle Immunoassay (CMIA) Hemoglobin A1c (Not yet revi ewed by provider) Interpretation: Performing Lab:[facility], [address] [place] [phone] Notes/Report: Hemoglobin A1c % 6.2 <6.0 % Hemoglobin A1C Reference Range Adults: 4.8 - 6.0 % Non diabetic: < 6.0 % Goal: < 7.0 % Additional Action Suggested: > 8.0 % Note: Hemoglobin A1c results are invalid for patients with abnormal amounts of HbF. Blood transfusions may impact the HbA1c concentration in the patient sample. Estimated Average Glucose 131 eAG = Estimated average glucose which is %A1C expressed as average glucose, using the formula of the E2R-Oqqrgdd Average Glucose study (ADAG), Diabetes Care, Vol.31,#8, 2007 UA ClnCatch+Micro w/rflx Cul t (Not yet reviewed by provider) Interpretation: Performing Lab:[facility], [address], [place] [phone] Notes/Report: Urine, Clean Catch Color Urine Yellow Appearance Urine Clear PH 7.5 5.0-9.0 Glucose Urine UA Negative Negative mg/dL Urine Blood Negative Negative Specific [place] - Urine 1.010 1.005-1.025 Urine Protein Negative Neg-Trace mg/dL Urine Ketones Negative Negative mg/dL Nitrite Urine Negative Negative Leukocyte Esterase Urine Negative Negative RBC Urine 0-2 0-2 /HPF WBC Urine 0-5 0-5 /HPF Squamous Epithelial Cell Urine 0-2 0-2 /HPF Bacteria Urine None Seen None Seen Hyaline Casts Urine 0-2 0-2 /LPF REASON FOR VISIT FASTING LABS Medications Medication SIG (Take, Route, Frequency, Duration) Notes Start Date End Date Status Metoprolol Succinate ER 25 MG TAKE 1 TABLET BY MOUTH EVERY DAY for 90 Unknown Xarelto 20 MG TAKE 1 TABLET DAILY WITH FOOD ORALLY ONCE A DAY 90 DAYS for 90 Unknown Digoxin 125 MCG TAKE 1 TABLET ORALLY ONCE EVERY OTHER DAY 90 DAYS for 90 Unknown Metoprolol Succinate ER 50 MG TAKE 1 TABLET BY MOUTH TWICE A DAY for 90 Unknown Cyclobenzaprine HCl 5 MG 1 tablet at bed time as needed Orally twice a day for 10 days 05/10/2021 Unknown Pravastatin Sodium 20 MG 1 tablet Orally Once a day for 90 days 12/04/2019 Unknown Albuterol Sulfate HFA 108 (90 Base) MCG/ACT USE 2 INHALATIONS EVERY 4 HOURS IF NEEDED Inhalation every 4 hrs for 30 days Unknown Tiadylt ER 360 MG TAKE 1 CAPSULE BY [facility] EVERY DAY for 90 Unknown Hyoscyamine Sulfate ER 0.375 mg TAKE 1 TABLET DAILY Orally once a day for 90 days Unknown Triamcinolone Acetonide 0.1 % 1 application Externally Two times a Week for 14 days 02/23/2022 Unknown Centrum Silver - as directed Orally Unknown Omeprazole 20 MG 1 capsule 30 minutes before morning meal Orally Once a day 08/16/2020 Unknown Encounters Encounter Location Date Provider Diagnosis Herman Figueroa MD [address] [place], [place] [id number] 08/28/2024 Herman Figueroa Blood tests for rout ine general physical examination Z00.00 ; Prediabetes R73.09 and Pure hypercholesterolemia E78.00 Assessments Encounter Date Diagnosis (ICD Code) Assessment Notes Treatment Notes Treatment Clinical Notes Section Notes 08/28/2024 Blood tests for rout ine general physical examination (ICD-10 - Z00.00) 08/28/2024 Prediabetes (ICD-10 - R73.09) 08/28/2024 Pure hypercholesterolemia (ICD-10 - E78.00) Plan Of Treatment Pending Test Test Name Order Date Complete Blood Count Auto Diff Comprehensive [place]. Panel Fast Lipid Panel 08/28/2024 PSA,Total (Free>4and<10) 08/28/2024 Microalbumin, Random 08/28/2024 Hemoglobin A1c 08/28/2024 UA ClnCatch+Micro w/rflx Cult 08/28/2024 Next Appt Details Provider Name:Herman Zaidi ier, 09/04/2024 02:30:00 PM, [address] [place] [address], [place] [address], [place], [place], [phone], Progress Notes * Agusto RODRIGUEZ RDOB:1950 ( 73 yo M)Acc No.[id number]:08/28/2024 Progress Note Patient:?Agusto RODRIGUEZ Provider:?Herman Figueroa MD :1950???Age:73 Y???Sex:Male Lucio e:08/28/2024 Address:[address] [place] [address] Subjective: * Chief Complaints: * ???1. FASTING LABS. * Medical History:?Colonoscopy 08/22/12 - repeat 10 years, Toxoplasmosis, Colonoscopy done 2020, due 5 yrs 2 polyps. * Medications:?Unknown Centrum Silver - Tablet as directed Orally , Unknown Omeprazole 20 MG Capsule Delayed Release 1 capsule 30 minutes before morning meal Orally Once a day , Unknown Tiadylt ER 360 MG Capsule Extended Release 24 Hour TAKE 1 CAPSULE BY MOUTH EVERY DAY , Unknown Hyoscyamine Sulfate ER 0.375 mg Tablet Extended Release 12 Hour TAKE 1 TABLET DAILY Orally once a day , Unknown Pravastatin Sodium 20 MG Tablet 1 tablet Orally Once a day , Unknown Albuterol Sulfate HFA 108 (90 Base) MCG/ACT Aerosol Solution USE 2 INHALATIONS EVERY 4 HOURS IF NEEDED Inhalation every 4 hrs , Unknown Triamcinolone Acetonide 0.1 % Cream 1 application Externally Two times a Week , Unknown Digoxin 125 MCG Tablet TAKE 1 TABLET ORALLY ONCE EVERY OTHER DAY 90 DAYS , Unknown Metoprolol Succinate ER 25 MG Tablet Extended Release 24 Hour TAKE 1 TABLET BY MOUTH EVERY DAY , Unknown Xarelto 20 MG Tablet TAKE 1 TABLET DAILY WITH FOOD ORALLY ONCE A DAY 90 DAYS , Unknown Metoprolol Succinate ER 50 MG Tablet Extended Release 24 Hour TAKE 1 TABLET BY MOUTH TWICE A DAY , Unknown Cyclobenzaprine HCl 5 MG Tablet 1 tablet at bedtime as needed Orally twice a day * Allergies:?Lipitor: myalgia. Objective: * Vitals:? Assessment: * Assessment: 1.?Blood tests for routine g eneral physical examination - Z00.00 (Primary)???2.?Prediabetes - R73.09???3.?Pure hypercholesterolemia - E78.00??? Plan: * Treatment: 2.?Prediabetes?LAB: Complete Blood Count Auto Diff (Collection Date & Time - 08/28/2024 08:00 AM) ?LAB: Comprehensive [place]. Panel Fast (Collection Date & Time - 08/28/2024 08:00 AM) ?LAB: Lipid Panel (Collection Date & Time - 08/28/2024 08:00 AM) ?LAB: PSA,Total (Free>4and<10) (Collection Date & Time - 08/28/2024 08:00 AM) ?LAB: Microalbumin, Random ?LAB: Hemoglobin A1c (Collection Date & Time - 08/28/2024 08:00 AM) ?LAB: ClnCatch+Micro w/rflx Cult (Collection Date & Time - 08/28/2024 08:00 AM) 3.?Pure hypercholesterolemia ?LAB: Complete Blood Count Auto Diff (Collection Date & Time - 08/28/2024 08:00 AM) ?LAB: Comprehensive [place]. Panel Fast (Collection Date & Time - 08/28/2024 08:00 AM) ?LAB: Lipid Panel (Collection Date & Time - 08/28/2024 08:00 AM) ?LAB: PSA,Total (Free>4and<10) (Collection Date & Time - 08/28/2024 08:00 AM) ?LAB: Microalbumin, Random ?LAB: Hemoglobin A1c (Collection Date & Time - 08/28/2024 08:00 AM) ?LAB: UA ClnCatch+Micro w/rflx Cult (Collection Date & Time - 08/28/2024 08:00 AM) * Procedure Codes:?10963 VENIP UNCT, ROUTINE* * * The named appointment provid er may or may not be the originator of this progress note, and it is not deemed complete until electronically signed by the appointment provider. Sign off status: Pending * Provider:?Herman Figueroa MD Date:?0 08/28/2024 Generated for Hamilton walker/Edgardo/Danielitting on:?08/28/2024 11:49 AM EDT
--- OUTSIDE RECORDS SUMMARY | 2024-08-28 11:49 | XMS_ITS ---
Author Organization Herman Figueroa MD Address [address] [place] [phone] Care Team Providers Care Parole Agent Name Role Phone Carolina Herman Primary Care Provider [phone] REASON FOR VISIT RF Metoprolol 50mg Medications Medication SIG (Take, Route, Frequency, Duration) Notes Start Date End Date Status Metoprolol Succinate ER 50 MG TAKE 1 TABLET BY MOUTH TWICE A DAY for 90 Active Encounters Encounter Location Date Provider Diagnosis Herman Figueroa MD [address] [facility] [address] [place] [phone] 07/17/2024 Herman Figueroa Plan Of Treatment Medication Medication Name Sig Start Date Stop Date Notes Metoprolol Succinate ER 50 MG TAKE 1 TAB LET BY MOUTH TWICE A DAY for 90 Next Appt Details Provider Name:Herman gardner, 09/04/2024 02:30:00 PM, [address] [facility], [address] [facility], [place], [place], [phone], Progress Notes * Agusto RODRIGUEZ RDOB:1950 ( 73 yo M)Acc No.[id number]:07/17/2024 Patient:Agusto LYONS :1950???Age:73 Y???Sex:Male Address:[address] [place] [address] * Refills? Refill Metoprolol Succinate ER Tablet Extended Release 24 Hour, 50 MG, 180 Tablet, TAKE 1 TABLET BY MOUTH TWICE A DAY, 90, Refills=4 * true * Date:? Generated for Hamilton walker/Edgardo/eTransmitting on:?08/28/2024 11:48 AM EDT
--- OUTSIDE RECORDS SUMMARY | 2024-08-28 11:49 | XMS_ITS | Patient Health Record ---
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 Name Role Phone Herman Figueroa Primary Care Provider Allergies Allergen (clinical drug ingredient) Drug/Non Drug Allergy documented on EMR Reaction Allergy Type Onset Date Status atorvastatin Lipitor myalgia Drug Allergy Acti ve Results Component Value Reference Range Notes Complete Blood Count Auto Di ff (Not yet reviewed by provider) Interpretation: Performing Lab:[facility], [address] [place] [phone] Notes/Report: White Blood Count 7.6 4.8-10.8 X10*3/uL [...] 0.0-0.2 /100WBC Neutrophils Absolute Auto 4.5 2.0-8.3 x10*3/uL Imm Gran Abs Auto 0.04 0.00-0.03 X10*3/uL Lymphocytes Absolute Auto 1.9 1.2-4.9 X10*3/uL Monocytes Absolute Auto 0.6 0.1-1.2 X10*3/uL Eosinophils Absolute Auto 0.5 0.0-0.4 X10*3/uL Basophils Absolute Auto 0.1 0.0-0.2 X10*3/uL NRBC [...] 0.0-0.2 /100WBC Neutrophils Absolute Auto 4.5 2.0-8.3 x10*3/uL Imm Gran Abs Auto 0.04 0.00-0.03 X10*3/uL Lymphocytes Absolute Auto 1.9 1.2-4.9 X10*3/uL Monocytes Absolute Auto 0.6 0.1-1.2 X10*3/uL Eosinophils Absolute Auto 0.5 0.0-0.4 X10*3/uL Basophils Absolute Auto 0.1 0.0-0.2 X10*3/uL NRBC Abs Auto 0.000 0.0-0.012 X10*3/uL COR RECTED REPORT COR RECTED REPORT Comprehensive [place]. Panel Fa st (Not yet reviewed by provider) Interpretation: Performing Lab:[facility], [address] [place] [phone] Notes/Report: Sodium 143 135-145 mmol/L Potassium 4.4 [...] yet reviewe d by provider) Interpretation: Performing Lab:[facility], [address] [place] [phone] Notes/Report: Triglycerides 82 <150 mg/dL Desirable Triglyceride: [...] in patients with liver disease. PSA,Total (Free>4and<10) (N ot yet reviewed by provider) Interpretation: Performing Lab:[facility], [address] [place] [phone] Notes/Report: PSA,Total (Free>4and<10) 4.37 0.00-4.00 ng/mL PSA methodology: Briceño Alinity i Chemiluminescent Microparticle Immunoassay (CMIA) Hemoglobin A1c (Not yet revi ewed by provider) Interpretation: Performing Lab:[facility], [address] [place] [phone] Notes/Report: Hemoglobin A1c % 6.2 <6.0 % [...] average glucose, using the formula of the Z9B-Ylhynxt Average Glucose study (ADAG), Diabetes Care, Vol.31,#8, Nov. 2007 UA ClnCatch+Micro w/rflx Cul t (Not yet reviewed by provider) Interpretation: Performing Lab:[facility], [address] [place] [phone] Notes/Report: Urine, Clean Catch Color Urine Yellow Appearance Urine Clear PH 7.5 5.0-9.0 Glucose Urine UA Negative Negative mg/dL Urine Blood Negative Negative Specific [place] - Urine 1.010 1.005-1.025 Urine Protein Negative Neg-Trace mg/dL Urine Ketones Negative Negative mg/dL Nitrite Urine Negative Negative Leukocyte Esterase Urine Negative Negative RBC Urine 0-2 0-2 /HPF WBC Urine 0-5 0-5 /HPF Squamous Epithelial Cell Urine 0-2 0-2 /HPF Bacteria Urine None Seen None Seen Hyaline Casts Urine 0-2 0-2 /LPF Occult Blood, Stool, Guaiac Reviewed date:2023 03:51:57 PM Interpretation:Negative Performing Lab: Notes/Report: Negative Occult Blood, Stool, Guaiac Neg Microalbumin, Random Reviewed date:08/31/2023 08:49:23 PM Interpretation: Performing Lab:[facility], [address] [place] [phone] Notes/Report: Creatinine Urine 97.88 Microalbumin Urine < 5.0 Microalbum/Creatinine Ratio Ur TNP <30 ug/mg cr Unable to calculate albumin/creatinine ratio due to low microalbumin or creatinine result. UA ClnCatch+Micro w/rflx Cul t Reviewed date:2023 05:11:55 PM Interpretation: Performing Lab:[facility], [address] [place] [phone] Notes/Report: Urine, Clean Catch Color Urine Yellow Appearance Urine Clear PH 6.5 5.0-9.0 Glucose Urine UA Negative Negative mg/dL Urine Blood Negative Negative Specific [place] - Urine 1.010 1.005-1.025 Urine Protein Negative Neg-Trace mg/dL Urine Ketones Negative Negative mg/dL Nitrite Urine Negative Negative Leukocyte Esterase Urine Negative Negative RBC Urine 0-2 0-2 /HPF WBC Urine 0-5 0-5 /HPF Squamous Epithelial Cell Urine 0-2 0-2 /HPF Bacteria Urine None Seen None Seen Hyaline Casts Urine 0-2 0-2 /LPF XR lumbar spine 2-3V Reviewed date:04/30/2024 10:12:45 AM Interpretation: Performing Lab: Notes/Report: [address] [address] XRay Report Signed Patient: Agusto Hilton MR#: [id number] : 1950 Acct:[id number] Age/Sex: 73 / M ADM Date: 03/11/24 Loc: HO.XRAY Attending Dr: Herman Figueroa MD Ordering Physician: Herman Figueroa MD Date of Service: 03/11/24 Procedure(s): XR lumbar spine 2-3V Accession Number(s): [id number] cc: Herman Figueroa MD EXAMINATION: XR LUMBOSACRAL SPINE CLINICAL INFORMATION: Ankylosing spondylitis of thoracic region. COMPARISON: None available TECHNIQUE: Three views of the lumbosacral spine. FINDINGS: The lumbar lordosis is maintained. Grade 1 anterolisthesis of L4 on L5 measuring 0.5 cm in AP dimension. No acute fracture. No loss of vertebral body height. Moderate multilevel loss of intervertebral disc height with endplate osteophytes. Lower lumbar spine facet arthropathy. No concerning lytic or blastic osseous lesion. Atherosclerotic calcifications. XR/XR lumbar spine 2-3V IMPRESSION: 1. Grade 1 anterolisthesis of L4 on L5. 2. Moderate multilevel degenerative disc disease with lower lumbar spine facet arthropathy. Electronically signed by: Joao Mota MD 04/30/2024 09:21 AM [facility] Dictated By: Joao Mota MD Signed By: <Electronically signed by Joao Mota MD in OV> 04/30/24 0921 DD/ 1327 TD/TT: 03/11/24 1343 Tribal Judge: [address] [address] XRay Report Signed Patient: Agusto Hilton MR#: [id number] : 1950 Acct:[id number] Age/Sex: 73 / M ADM Date: 03/11/24 Loc: HO.XRAY Attending Dr: Herman Figueroa MD Ordering Physician: Herman Figueroa MD Date of Service: 03/11/24 Procedure(s): XR lum bar spine 2-3V Accession Number(s): [id number] cc: Herman Figueroa MD EXAMINATION: XR LUMBOSACRAL SPINE CLINICAL INFORMATION: Ankylosing spondylit is of thoracic region. COMPARISON: None available TECHNIQUE: Three views of the lumbosacral spine. FINDINGS: The lumbar lordosis is maintained. Grade 1 anterolisthesis of L4 on L5 measuring 0.5 cm in AP dimension. No acute fracture. No loss of vertebral body heigh t. Moderate multilevel loss of intervertebral disc height with endplate osteophytes. Lower lumbar spine facet arthropathy. No concerning lytic or blastic osseous lesion. Atherosclerotic calcifications. X R/XR lumbar spine 2-3V IMPRESSION: 1. Grade 1 anterolisthesis of L4 on L5. 2. Moderate multilev el degenerative disc disease with lower lumbar spine facet arthropathy. Electronically moustapha d by: Joao Mota MD 04/30/2024 09:21 AM [facility] Dictated By: Joao Mota MD Signed By: <Electronically signed by Joao Mota MD in OV> 04/30/24 0921 DD/ 1327 TD/TT: 03/11/24 1343 Tribal Judge: XR chest 2V Reviewed date:03/27/2024 03:05:48 PM Interpretation:orders entered Performing Lab: Notes/Report: [address] [address] XRay Report Signed Patient: Agusto Hilton MR#: [id number] : 1950 Acct:[id number] Age/Sex: 73 / M ADM Date: 03/06/24 Loc: HO.XRAY Attending Dr: Herman Figueroa MD Ordering Physician: Herman Figueroa MD Date of Service: 03/06/24 Procedure(s): XR chest 2V Accession Number(s): [id number] cc: Herman Figueroa MD EXAMINATION: XR CHEST CLINICAL INFORMATION: PAROXYSMAL ATRIAL FIBRILLATION COMPARISON: X-ray dated May 20, 2020. TECHNIQUE: 2 views of the chest were obtained. FINDINGS: No consolidation pleural effusion or pneumothorax. No hyperinflation. Cardiomediastinal silhouette demonstrates calcified plaque aortic arch. Calcification throughout the anterior longitudinal ligament axial skeleton. No acute fracture or gross listhesis. Osteopenia versus process. XR/XR chest 2V IMPRESSION: No acute airspace disease. Concerning ankylosing spondylitis, thoracic spine. Electronically signed by: Bryan Rivera MD 03/07/2024 08:24 AM EST RP Dictated By: Bryan Choe MD Signed By: <Electronically signed by Bryan Eden MD in OV> 03/07/24823 DD/ 1536 TD/TT: 03/06/24 1559 Tribal Judge: [place] [address] XRay Report Signed Patient: Agusto Hilton MR#: [id number] : 1950 Acct:[id number] Age/Sex: 73 / M ADM Date: 03/06/24 Loc: HO.XRAY Attending Dr: Herman Figueroa MD Ordering Physician: Herman Figueroa MD Date of Service: 03/06/24 Procedure(s): XR chest 2V Accession Number(s): [id number] cc: Herman Figueroa MD EXAMINATION: XR CHEST CLINICAL INFORMATION: PAROXYSMAL ATRIAL FIBRILLATION COMPARISON: X-ray dated May 20, 2020. TECHNIQUE: 2 views of the chest were obtained. FINDINGS: No consolidation ple ural effusion or pneumothorax. No hyperinflation. Cardiomediastinal silhouette demonstrates calcified plaque aortic arch. Calcification throug hout the anterior longitudinal ligament axial skeleton. No acute fracture or gross listhesis. Osteopenia versus process. X R/XR chest 2V IMPRESSION: No acute airspace disease. Concerning ankylosin g spondylitis, thoracic spine. Electronically moustapha d by: Bryan Rivera MD 03/07/2024 08:24 AM EST RP Dictated By: Bryan Graham MD Signed By: <Electronically signed by Bryan Eden MD in OV> 03/07/24823 DD/ 1536 TD/TT: 03/06/24 1559 Tribal Judge: SLIDE REVIEW (Not yet review ed by provider) Interpretation: Performing Lab:[facility], [address] [place] [phone] Notes/Report: SLIDE REVIEW VERIFIED Reason For Referral No Information Medications Medication SIG (Take, Route, Frequency, Duration) Notes Start Date End Date Status Pravastatin Sodium 20 MG 1 tablet Orally Once a day for 90 days 12/04/2019 Unknown Albuterol Sulfate HFA 108 (90 Base) MCG/ACT USE 2 INHALATIONS EVERY 4 HOURS IF NEEDED Inhalation every 4 hrs for 30 days Unknown Tiadylt ER 360 MG TAKE 1 CAPSULE BY [facility] EVERY DAY for 90 Unknown Hyoscyamine Sulfate ER 0.375 mg TAKE 1 TABLET DAILY Orally once a day for 90 days Unknown Metoprolol Succinate ER 25 MG TAKE 1 TABLET BY MOUTH EVERY DAY for 90 Unknown Xarelto 20 MG TAKE 1 TABLET DAILY WITH FOOD ORALLY ONCE A DAY 90 DAYS for 90 Unknown Triamcinolone Acetonide 0.1 % 1 application Externally Two times a Week for 14 days 02/23/2022 Unknown Digoxin 125 MCG TAKE 1 TABLET ORALLY ONCE EVERY OTHER DAY 90 DAYS for 90 Unknown Metoprolol Succinate ER 50 MG TAKE 1 TABLET BY MOUTH TWICE A DAY for 90 Unknown Centrum Silver - as directed Orally Unknown Cyclobenzaprine HCl 5 MG 1 tablet at bed time as needed Orally twice a day for 10 days 05/10/2021 Unknown Omeprazole 20 MG 1 capsule 30 minutes before morning meal Orally Once a day 08/16/2020 Unknown Immunizations Vaccine Route Administration Date Status Comme nts Flu Vaccine IM Intramuscular 03/26/2012 Administered Flu Vaccine IM Intramuscular 12/31/2012 Administered Flu Vaccine IM Intramuscular 02/17/2014 Administered zFluzone Quadrivalent IM Intramuscular 06/14/2015 Administ ered PPSV23 (Pnemovax) IM Intramuscular 06/21/2015 Administered Fluarix Quadrivalent IM Intramuscular 02/22/2016 Administe red Fluarix Quadrivalent IM Intramuscular 01/02/2017 Administe red Prevnar 13 IM Intramuscular 01/11/2017 Administered Influenza High Dose IM Intramuscular 02/03/2019 Administer ed Influenza High Dose Unknown 02/24/2020 Administered [facility] Covid Vaccine Unknown 07/10/2020 Administered Pfizer Covid Vaccine Unknown 08/01/2020 Administered PFizer Influenza High Dose IM Intramuscular 02/22/2021 Administer ed SARS-COV-2 Moderna Unknown 04/05/2021 Administered PPSV23 (Pnemovax) IM Intramuscular 08/24/2022 Administered Influenza High Dose IM Intramuscular 01/26/2023 Administer ed Influenza High Dose Unknown 12/18/2023 Administered [facility] SARS-COV-2 Pfizer Unknown 12/18/2023 Administered [facility] Fluarix Quadrivalent Unknown 08/05/2018 Refused Social History Tobacco Use: Social History Observation Description Date Details (start date - stop date) Never Smoker NA - NA Tobacco Use/Smoking Question Answer Notes Patient is a nonsmoker Additional Findings: Tobacco Non-User Cu rrent non-smoker, currently using no form of tobacco Alcohol Screen Question Answer Notes Did you have a drink contain ing alcohol in the past year? Yes How often did you have a dri nk containing alcohol in the past year? Monthly or less (1 point) How many drinks did you have on a typical day when you were drinking in the past year? 1 or 2 drinks (0 point) How often did you have 6 or more drinks on one occasion in the past year? Never (0 point) Points 1 Interpretation Negative Problems Problem Type SNOMED Code ICD Code Onset Dates Problem Status W/U Status Risk Notes Problem 532020439 Reflux esophagit is (K21.00) Active confirmed Problem 47763718 Statin intoleran ce (Z78.9) Active confirmed Problem 282072996 Paroxysmal atria l fibrillation (I48.0) Active confirmed Problem 46644688 Hypercalcemia (E83.52) Active confirme d Problem Ankylosing spondylitis (6090906) Ankylosing spondylitis of thoracic region (M45.4) Active confirmed Problem 068804877 Mild intermitten t asthma without complication (J45.20) Active confirmed Problem 5083953 Prediabetes (R73.09) Active confirmed Problem 40488027 Intrinsic eczema (L20.84) Active confirmed Problem 27469568 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 Problem 351883061 Pure hypercholesterolemia (E78.00) Active confirmed Vital Signs Blood pressure diastolic 80 mm Hg 06/12/2024 chanelle ght is down 3 pounds since 04-17-24 Height 70.25 in 06/12/2024 weight is down 3 pounds since 04-17-24 Blood pressure systolic 112 mm Hg 06/12/2024 rosy ht is down 3 pounds since 04-17-24 Weight 191 lbs 06/12/2024 weight is down 3 pounds since 04-17-24 BMI 27.21 kg/m2 06/12/2024 weight is down 3 pounds since 04-17-24 Encounters Encounter Location Date Provider Diagnosis Herman Figueroa MD [address] [place] [id number] 08/28/2024 Herman Figueroa Blood tests for rout ine general physical examination Z00.00 ; Prediabetes R73.09 and Pure hypercholesterolemia E78.00 Herman Figueroa MD [address] [place] [id number] 2023 Herman Figueroa Prediabetes R73.09 ; Annual physical exam Z00.00 ; Athscl heart disease of [place] coronary artery w/o ang pctrs I25.10 ; Pure hypercholesterolemia E78.00 ; Paroxysmal atrial fibrillation I48.0 ; Mild intermittent asthma without complication J45.20 ; Reflux esophagitis K21.00 ; Colon cancer screening Z12.11 and Depression screening Z13.31 Herman Figueroa MD [address] [place] [id number] 03/06/2024 Herman Figueroa Paroxysmal atrial fibrillation I48.0 ; Athscl heart disease of [place] coronary artery w/o ang pctrs I25.10 ; Mild intermittent asthma without complication J45.20 and Mild eczema L30.9 Herman Figueroa MD [address] [place] [id number] 03/27/2024 Herman Figueroa Ankylosing spondylit is of thoracic region M45.4 Herman Figeuroa MD [address] [place] [id number] 04/17/2024 Herman Figueroa Ankylosing spondylit is of thoracic region M45.4 and Mild intermittent asthma without complication J45.20 Herman Figueroa MD [address] [place] [id number] 06/12/2024 Herman Figueroa Paroxysmal atrial fibrillation I48.0 and Cerumen impaction H61.20 Herman Figueroa MD [address] [place] [id number] 12/07/2023 Herman Figueroa MD [address] [place] [id number] 12/14/2023 Herman Figueroa MD [address] [place] [id number] 12/18/2023 Herman Figueroa MD [address] [place] [id number] 01/24/2024 Herman Figueroa Pure hypercholestero lemia E78.00 Herman Figueroa MD [address] [place] [id number] 01/31/2024 Herman Figueroa Mild intermittent as thma without complication J45.20 Herman Figueroa MD [address] [place] [id number] 03/11/2024 Herman Figueroa Ankylosing spondylit is of thoracic region M45.4 Herman Figueroa MD [address] [place] [id number] 07/08/2024 Herman Figueroa Paroxysmal atrial fibrillation I48.0 Herman Figueroa MD [address] [place] [id number] 07/17/2024 Herman Figueroa Assessments Encounter Date Diagnosis (ICD Code) Assessment Notes Treatment Notes Treatment Clinical Notes Section Notes 08/28/2024 Blood tests for rout ine general physical examination (ICD-10 - Z00.00) 2023 Prediabetes (ICD-10 - R73.09) doing well with a good a1c, no need for medication at this time 2023 Annual physical exam (ICD-10 - Z00.00) labs reviewed and discussed with patient 03/06/2024 Paroxysmal atrial fibrillation (ICD-10 - I48.0) rate a little high at 90 to 100 03/06/2024 Athscl heart disease of [place] coronary artery w/o ang pctrs (ICD-10 - I25.10) no chest pains had echo with mild to moderate mitral reguirge 03/27/2024 Ankylosing spondylit is of thoracic region (ICD-10 - M45.4) seems unlikely to have this with his range of motion. await the xrays. may send him to rheumatology 04/17/2024 Ankylosing spondylit is of thoracic region (ICD-10 - M45.4) still waiting for lumbar spine xray. if positive will send to rheumatology 06/12/2024 Paroxysmal atrial fibrillation (ICD-10 - I48.0) doing well. insurance is giving him trouble because of his meds. is going to discuss with cardiology today 06/12/2024 Cerumen impaction (ICD-10 - H61.20) ear lavage completed with good results 01/24/2024 Pure hypercholesterolemia (ICD-10 - E78.00) 01/31/2024 Mild intermittent asthma without complication (ICD-10 - J45.20) 07/08/2024 Paroxysmal atrial fibrillation (ICD-10 - I48.0) 08/28/2024 Prediabetes (ICD-10 - R73.09) 2023 Athscl heart disease of [place] coronary artery w/o ang pctrs (ICD-10 - I25.10) not having any pains 03/06/2024 Mild intermittent asthma without complication (ICD-10 - J45.20) is bothering more than usual/ ORDER PRITNED AND GIVEN TO PATIENT 04/17/2024 Mild intermittent asthma without complication (ICD-10 - J45.20) cleared with his inhaler. will use inhaler more often. chest xray was negative for lung disease 03/11/2024 Ankylosing spondylit is of thoracic region (ICD-10 - M45.4) 08/28/2024 Pure hypercholesterolemia (ICD-10 - E78.00) 2023 Pure hypercholesterolemia (ICD-10 - E78.00) has good cholesterol, will conitnue current regiment 03/06/2024 Mild eczema (ICD-10 - L30.9) 2023 Paroxysmal atrial fibrillation (ICD-10 - I48.0) well controlled rate, will continue current regiment 2023 Mild intermittent asthma without complication (ICD-10 - J45.20) stable, will continue current regiment 2023 Reflux esophagitis (ICD-10 - K21.00) stable, will continue current regiment 2023 Colon cancer screeni ng (ICD-10 - Z12.11) guaiac negative 2023 Depression screening (ICD-10 - Z13.31) negative screen Plan Of Treatment Pending Test Test Name Order Date Electrocardiogram (EKG) 05/15/2013 Electrocardiogram (EKG) 01/11/2017 Electrocardiogram (EKG) 03/02/2011 Electrocardiogram (EKG) 07/26/2017 Electrocardiogram (EKG) 02/06/2019 XR CHEST 2 VIEW PA & LAT 05/20/2020 XR CHEST 2 VIEW PA & LAT 03/06/2024 XR GI SMALL BOWEL SERIES 07/26/2017 Complete Blood Count Auto Diff Comprehensive [place]. Panel Fast Lipid Panel 08/28/2024 PSA,Total (Free>4and<10) 08/28/2024 Microalbumin, Random 08/28/2024 Hemoglobin A1c 08/28/2024 SLIDE REVIEW 08/28/2024 UA ClnCatch+Micro w/rflx Cult 08/28/2024 Next Appt Details Provider Name:Herman Zaidi ier, 09/04/2024 02:30:00 PM, [address] [facility], [address], [place], [place], [id number], Insurance Providers Payer Name Payer Address Payer Phone Subscriber Number Group Number Insured Name Patient Relationship to Insured Coverage Start Date Coverage End Date [employer] PLAN [employer] [facility] [address] [facility] [place] [phone] [id number] Agusto Hilton Self - patient is the insured Medical (General) History Medical History History ICD Code colonoscopy 08/22/12 - repeat 10 years Toxoplasmosis colonoscopy done 2020, due 5 yrs 2 polyp s
[2024-08-28 12:09] LABS: Creatinine Urine 71.78 mg/dL; Microalbum/Creatinine Ratio Ur 12.5 ug/mg cr (<30)
[2024-08-29 11:04] LABS: Free Prostate Spec Ag 0.7 ng/mL; Percent Free Prostate Spec Ag 16 % (calc) (>25); Prostate Specific Ag Total 4.4 ng/mL (< OR = 4.0)
== END 2024-08-28 10:43 | disposition home or self-care (01) ==
LOC: HO.LNP 10:42
PROVIDERS: Visit Provider Internal Medicine
DX: Z00.00 Encounter for general adult medical examination without abnormal findings (principal); R73.03 Prediabetes; E78.00 Pure hypercholesterolemia, unspecified; Z12.5 Encounter for screening for malignant neoplasm of prostate
CPT/HCPCS: 80053; 80061; 81001; 82043; 82570; 83036; 84153; 84154; 85025

== ENCOUNTER 2024-10-06 10:01 | Outpatient (REF) | payer MEDICARE, SELFPAY ==
--- OUTSIDE RECORDS SUMMARY | 2024-09-16 10:57 | XMS_ITS ---
Author Organization Herman Figueroa MD Address [address] [place] [phone] Care Team Providers Care Fashion Styling Intern Name Role Phone CarolinaAbbyn Primary Care Provider REASON FOR VISIT med issue Encounters Encounter Location Date Provider Diagnosis Herman Figueroa MD 10 [facility] [address] [place] [phone] 09/16/2024 Herman Figueroa Plan Of Treatment Next Appt Details Provider Name:Herman Zaidi ievaldez, 10/13/2024 01:30:00 PM, [address] [place] [address], [address], [phone], Provider Name:Herman gardner, 02/27/2025 07:30:00 AM, [address] [place] [address], [address], [phone], Provider Name:Herman gardner, 03/06/2025 01:30:00 PM, [address] [place] [address], [address], [phone], Provider Name:Herman Zaidi ier, 09/01/2025 07:15:00 AM, [address], [address], [place], [phone], Provider Name:Herman Zaidi ier, 09/08/2025 02:30:00 PM, [address] [facility] [address], [address], [place], [phone], Progress Notes * Agusto RODRIGUEZ RDOB:1950 ( 74 yo M)Acc No.[id number]:09/16/2024 Patient: Valdez Agusto MAGALLANES :1950 A ge:74 Y S ex:Male Address:[address] [place] [address] * true * Date: Generated for [place] walker/Edgardo/Danielitting on: 0 10/06/2024 11:17 AM EDT
[2024-10-06 11:06] LABS: PSA,Total (Free>4and<10) 4.75 ng/mL (0.00-4.00)
[2024-10-07 14:33] LABS: Free Prostate Spec Ag 0.6 ng/mL; Percent Free Prostate Spec Ag 14 % (calc) (>25); Prostate Specific Ag Total 4.2 ng/mL (< OR = 4.0)
== END 2024-10-06 10:02 | disposition home or self-care (01) ==
LOC: HO.LNP 10:01
PROVIDERS: Visit Provider Internal Medicine
DX: I25.10 Atherosclerotic heart disease of native coronary artery without angina pectoris (principal)
CPT/HCPCS: 84153; 84154

== ENCOUNTER 2024-11-11 10:06 | Outpatient (REF) | payer MEDICARE, SELFPAY ==
--- OUTSIDE RECORDS SUMMARY | 2024-11-11 05:00 | XMS_ITS ---
Author Organization Herman Figueroa MD Address [address] [place] [phone] Care Team Providers Care Clay Burner Name Role Phone Herman Figueroa Primary Care Provider REASON FOR VISIT Repeat 1 month PSA Encounters Encounter Location Date Provider Diagnosis Herman Figueroa MD [address] [facility] [address] [place] [phone] 11/11/2024 Herman Figureoa Rising PSA level R97.20 Assessments Encounter Date Diagnosis (ICD Code) Assessment Notes Treatment Notes Treatment Clinical Notes Section Notes 11/11/2024 Rising PSA level (ICD-10 - R97.20) Plan Of Treatment Pending Test Test Name Order Date PSA,Total (Free>4and<10) 11/11/2024 Next Appt Details Provider Name:Herman gardner, 02/24/2025 07:30:00 AM, [address], [address], [place], [place], [phone], Provider Name:Herman gardner, 03/03/2025 01:45:00 PM, [address] [facility], [address], [place], [place], [phone], Provider Name:Herman Zaidi jj, 09/01/2025 07:15:00 AM, [address] [facility], [address], [place], [place], [phone], Provider Name:Herman Zaidi kayleyr, 09/08/2025 02:30:00 PM, [address] [facility], Suite [facility], [place], [place], [phone], Progress Notes * Agusto RODRIGUEZ RDOB:1950 ( 74 yo M)Acc No.[id number]:11/11/2024 Progress Note Patient: Agusto LEVINE Provider: Yessi Figueroa MD :1950 A ge:74 Y S ex:Male Date:11/11/2024 Address:[address] [place] [address] Subjective: * Chief Complaints: * 1 . [...] Pending * Provider: Yessi Figueroa MD Date: 11/11/2024 Generated for [place] walker/Edgardo/eTransmitting on: 11/11/2024 10:52 AM EDT
--- OUTSIDE RECORDS SUMMARY | 2024-11-11 10:52 | XMS_ITS | Clinical Summary ---
Author Organization [facility] Address [address] [address] Phone Care Team Providers Care Shuttleless Loom Weaver Name Role Phone Herman Figueroa MD Primary Care Provider Allergies Active Allergy Reactions Criticality Noted Date Comments Atorvastatin 08/24/2022 Other reaction(s): myalgia Other 06/12/2019 Seasonal allergies. Pollen Extracts 08/24/2020 Other reaction(s): Unknown Medications pravastatin (PRAVACHOL) 20 MG tablet daily. Will skip a couple days depending on joint paint Active albuterol 90 mcg/actuation inhaler Inhale 2 puffs into the lungs as needed. Active rivaroxaban (XARELTO) 20 mg Tab Take 20 mg by mouth daily with dinner. Active hyoscyamine (LEVBID) 0.375 mg 12 hr tablet as needed. Act ruperto dilTIAZem (CARDIZEM CD) 360 MG 24 hr capsule Take 1 capsule (360 mg total) by mouth daily. 90 capsule 3 2 Active digoxin (LANOXIN) 125 mcg tablet Take 1 tablet (125 mcg total) by mouth every other day. 90 tablet 1 3 Active triamcinolone acetonide 0.1 % cream 1 application.. 2 Active metoprolol succinate (TOPROL-XL) 50 MG 24 hr tablet TAKE 2 TABLETS BY MOUTH EVERY MORNING AND 1 TABLET BY MOUTH EVERY EVENING 270 tablet 3 5 Active Active Problems Problem Noted Date Diagnosed Date Longstanding persistent atrial fibrillation 05/18 Permanent atrial fibrillation 02/18/2021 Assessment & Plan (09/29/2021 2:36 PM EDT): His atrial fibrillation is exactly 110 bpm but is still fast enough that it is causing him symptoms. We decided to start digoxin 125 mcg every other week. We will Get a Chem-7 digoxin level 2 weeks after starting this medication to confirm that the digoxin level is less than 1. We will plan on a Holter monitor in 1 month to see if his average heart rate is even lower such as less than 100 bpm. I noted that at a minimum I would want the heart rate to be less than 110 bpm. He did have blood work done at [place] in August 2021 that shows a creatinine of 1.08 and a potassium of 4.3. Next visit we will plan on ordering an echocardiogram as well as we should get 1 once a year to confirm that his EF is staying stable with rate control Assessment & Plan (04/27/2021 3:39 PM EST): He has seen Dr. Abraham in consultation for his atrial fibrillation. He is on diltiazem 360 mg daily, metoprolol 75 mg twice daily, his Holter monitor that he had after increasing the metoprolol shows an improvement in his rate but not significant. His average heart rate was [address] speaking [address] Abraham he agrees that BP goal should be 110 or less. If he continues to have increased episodes of tachycardia with his atrial fibrillation then we may need to decide to load him with digoxin. He also reports minor edema to his feet but more so on the left than the right. He reports that the swelling seems to be worse at night and improves with activity. He states he follows a low-sodium diet by not adding sodium to his food. He does cook for himself so following a low-sodium diet altogether is difficult for him. We will give him a trial of Lasix 20 mg for 5 days to see if this improves his edema. He was also encouraged to wear compression stockings to see if this also helps with his edema. Asked him to reach out to me to let me know how he tolerates the furosemide after his trial. Due to him being a [employer] he would like to hold off on any procedures such as an ablation that would put him at risk for needing a blood transfusion. He will follow-up in [address] Abraham. As always he was encouraged to call the office to be seen sooner if he develops any chest pain shortness of breath or any worsening cardiac symptoms including tachycardia or symptoms related to his atrial fibrillation Assessment & Plan (03/22/2021 3:33 PM EST): He recently saw Dr. Otis Gudino who gave him options of having an atrial fibrillation ablation procedure however he wanted to hold off on this due to being a [employer] and wanted to avoid procedures at this time. He is unable to try amiodarone as an option for antiarrhythmic due to lung, liver and thyroid issues. His metoprolol was increased to 50 mg XL twice daily on his last visit as well as continuing diltiazem 360 mg daily and Xarelto 20 mg daily for anticoagulation. His 24-hour Holter monitor that he had to see if he was better rate controlled on these medications does reveal that he is in atrial fibrillation 100% of the time and tachycardic greater than 85% of the time with an average heart rate 116 bpm. I will increase his metoprolol today to 75 mg XL twice daily to see if this further helps with his rate control. We will also repeat another 24-hour Holter monitor at the end of this week to give the medication some time to work and to see if this also better rate control with him. He will continue his medication at this time. We will see him back here in 2 to 3 weeks and discuss possible atrial fibrillation ablation in the future. Assessment & Plan (02/18/2021 7:09 PM EDT): I noted we have multiple options for managing his atrial fibrillation including rate control, rhythm control with antiarrhythmic such as amiodarone or an ablation procedure. He noted he is a [employer] and does want to avoid procedures which is reasonable. I noted amiodarone is another option but this does have risks of lung, liver, thyroid issues. Finally I noted the last option would be rate control which is a fine and safe option and would only really be detrimental and that he may have symptoms if he does feel any symptoms of atrial fibrillation. He agrees to continue rate control for now. I will have him increase his metoprolol even further to 50 mg XL twice daily as his blood pressure seems to be able to support it and we will plan on a 24 monitor to confirm that his rates are now well controlled given his last monitor did show impressively increased rates. His rate today on my exam was 72 and does seem much better controlled. We will continue diltiazem and Xarelto as well Paroxysmal atrial fibrillation 02/21/2017 Assessment & Plan (05/25/2022 1:29 PM EST): Asymptomatic. His rate is under better control with increased metoprolol. Continue in addition to diltiazem and digoxin. He is appropriately anticoagulated with Xarelto. Continue without change. Assessment & Plan (11/22/2021 12:49 PM EDT): His rate is improved with the addition of digoxin. With this being said, his dyspnea has improved but is still present. He is currently taking 75 mg of metoprolol BID. Will increase to 100 mg in AM with 75 mg in PM. He will call our office in one week with an update on how he's feeling. Continue Xarelto. Assessment & Plan (01/10/2021 4:26 PM EDT): Patient is adequately anticoagulated on Xarelto without any bleeding complaint or missed doses. He is compliant with sotalol 120 mg twice daily. EKG in the office today shows A. fib with RVR. Patient states that he has had multiple cardioversions in the past, he has not had an ablation. He is not symptomatic at this time and denies any lightheadedness, dizziness, presyncope/syncope, feeling poor in general or any palpitations. He cannot state when he went into A. fib as he is not always aware of his arrhythmia and cannot feel it. He does not even feel that his heart is racing at this time. Will add diltiazem 120 mg daily. Assessment & Plan (07/08/2020 2:30 PM EDT): He is tolerating sotalol 120 mg twice daily well without further A. fib and a QT that is acceptable. We will continue get ECGs twice a year and Chem-7 at least once a year. We will continue Xarelto as well Assessment & Plan (01/05/2020 4:05 PM EDT): His episodes of paroxysmal atrial fibrillation fairly well controlled on sotalol. He notes that his episodes are usually triggered by stomach abnormalities and will ask his PCP for a referral to the GI physician. He does not feel that he is sleep apnea and his referral to the sleep clinic was not definitive either way. He would like to hold off on sleep study for now. We will continue Xarelto for his atrial fibrillation Assessment & Plan (06/12/2019 2:49 PM EST): New sotalol 120 twice daily for now. If he has more A. fib in the future we will like to proceed with A. fib ablation. Also will get a sleep study to make sure he does not have significant sleep apnea causing his A. fib. Assessment & Plan (02/18/2019 3:34 PM EST): He has a history of paroxysmal atrial fibrillation and has undergone at least 3 cardioversions. He is presently in sinus rhythm. He is on sotalol 120 mg daily for rhythm control. He is anticoagulated on Xarelto. I will arrange for him to see Dr. Wade, if there is recurrence of his atrial fibrillation may need more aggressive management. He is very symptomatic of his atrial fibrillation he does not feel that he has any recurrence since his most recent cardioversion. Assessment & Plan (01/21/2019 3:06 PM EDT): History of atrial fibrillation and status post ablation. He has had no known recurrence of atrial fibrillation. He remains on sotalol for rhythm control and Xarelto for any coagulation. He is denying any sensation of palpitations. Assessment & Plan (01/07/2018 3:18 PM EDT): He has not had a known recurrence of atrial fibrillation. He is on sotalol and is appropriately anticoagulated on Xarelto. Assessment & Plan (02/21/2017 6:26 PM EST): The patient was first diagnosed back in 2013 and has been managed on sotalol and Xarelto. He converted to atrial fibrillation with RVR and is status post successful elective electrical cardioversion on 01/17/17. EKG today showed sinus rhythm with heart rate 61. Continue to consider A. fib ablation with scientific database curator if pt converts back to atrial fibrillation. --Continue current dose of Sotalol --Continue current dose of Xarelto --6 month fuv and sooner if problems arise Coronary artery disease 02/21/2017 Assessment & Plan (05/25/2022 1:29 PM EST): Denies concerning symptoms today. We will continue to optimize his cardiovascular risk factors. He does not smoke and remains fairly active. Continue pravastatin with LDL goal < 70 mg/dL. Assessment & Plan (11/22/2021 12:44 PM EDT): Denies chest pain. We will continue to optimize his cardiovascular risk factors. His LDL goal is < 70 mg/dL. Assessment & Plan (09/29/2021 2:36 PM EDT): He denies any chest pain. We will continue on metoprolol Assessment & Plan (02/18/2021 7:10 PM EDT): He denies any chest pain and feels well. We will continue on aspirin and pravastatin Assessment & Plan (01/10/2021 4:27 PM EDT): Patient has had stents to his LAD in 2009. He is denying any symptoms concerning for angina at this time. Continue to optimize cardiac risk factors. Continue statin. Nuclear stress test January 2019 resulted with normal imaging. He denies any tobacco use. Assessment & Plan (07/08/2020 2:30 PM EDT): Continue pravastatin Assessment & Plan (02/18/2019 3:35 PM EST): He had a stent placed to his LAD in 2009. He is presently denying chest pain. He does had a normal nuclear stress test without evidence of ischemia. We will continue to optimize his risk factors. He continues on a statin which he only takes every other week due to myalgia. Blood pressure is well controlled. Assessment & Plan (01/21/2019 3:07 PM EDT): He had a stent placed to his LAD in 2009. He is not on aspirin due to antiregulation. He is denying chest discomfort but is reporting some shortness of breath with exertion. I have ordered an exercise treadmill test for him. We will follow-up with him after this. Assessment & Plan (01/07/2018 3:24 PM EDT): He had a stent placed to his LAD in 2009. He was taken off of his aspirin when he was started on Xarelto. We will continue to optimize his risk factors. His blood pressure today is normal. EKG shows normal sinus rhythm with no evidence of ischemia. His PCP checks his lipids regularly. Continue pravastatin. Assessment & Plan (02/21/2017 6:21 PM EST): The patient has a history of stenting to his LAD back in 2009. Continue to optimize his cardiovascular risk factors. --Continue current dose of pravastatin Hyperlipidemia 02/21/2017 Overview (02/21/2017): He is unable to tolerate stronger statins. Only on pravastatin 20 mg daily during that well. --Continue current dose of pravastatin Assessment & Plan (05/25/2022 1:30 PM EST): Continue pravastatin. Assessment & Plan (02/18/2019 3:35 PM EST): Is on pravastatin 20 mg which she takes for a week at a time. Cannot tolerate daily dosing due to myalgias. I have asked to have a lipid panel drawn. He thinks he has had visit with his PCP. We will try to get those records. If LDL remains above goal he may be a good candidate for a PS K9 inhibitor. Assessment & Plan (01/21/2019 3:07 PM EDT): He remains on pravastatin 20 mg. He tells me he takes his for a week at a time and then will take a break for a few days. He says his lab work will be drawn in a couple of weeks. He has a goal LDL of less than 70 mg/dL. If he is not at goal we could consider setting him up for a PSK 9 inhibitor since he has been intolerant to statins in the past. Assessment & Plan (01/07/2018 3:24 PM EDT): Continue current dose of pravastatin. He has been intolerant to higher intensity statins. Immunizations Immunization Administration Dates Next Due COVID-19 (Pre-02/05) Pfizer Vaccine, mRNA, PF Influenza High-Dose Quadrivalent Preservative Fr ee IM 02/24/2020 Influenza High-Dose Trivalent Preservative Free IM 02/03/2019 Influenza Quadrivalent Preservative Free IM 05/18 Influenza Trivalent Preservative Free IM 017,02/22/2016 Pneumococcal conjugate PCV13 01/11/2017 Pneumococcal polysaccharide PPSV23 06/21/2015 Family History Medical History Relation Comments Atrial fibrillation Brother CV disease Father Stroke Mother Relation Status Comments Brother Father Mother Social History Tobacco Use Types Packs/Day Years Used Date Smoking Tobacco: Never Smokeless Tobacco: Never Tobacco Cessation:Counseling Given: Not Answered Alcohol Use Standard Drinks/Week Comments Yes 0 (1 standard drink = 0.6 oz pur e alcohol) Occasionally Education Answer Date Recorded Are you interested in more education? Not on hannah e 08/11/2022 Are you concerned about learning? Not on file 08/11/2022 No 08/11/2022 No 08/11/2022 Digital Access Answer Date Recorded No 09/11/2022 No 09/11/2022 Reliable internet access at home? Not on file 09/11/2022 Device with a working camera? Not on file Sex and Gender Information Value Date Recorded Sex Assigned at Not on file Legal Sex Male 10:02 PM EDT Gender Identity Not on file Sexual Orientation Not on file Last Filed Vital Signs Vital Sign Reading Time Taken Comments Blood Pressure 102/64 06/17/2024 1:14 PM EST Pulse 62 06/17/2024 1:14 PM EST Temperature - - Respiratory Rate - - Oxygen Saturation 98% 06/17/2024 1:14 PM EST Inhaled Oxygen Concentration - - Weight 87.5 kg (193 lb) 06/17/2024 1:14 PM EST Height 182.9 cm (6' 0.01 ) 06/17/2024 1:14 PM ES T Body Mass Index 26.17 06/17/2024 1:14 PM EST Plan of Treatment Upcoming Encounters Date Type Department Care Team (Late st Contact Info) Description 12/23/2024 2:00 PM EDT Office Visit [facility] [address], [address] [place] [address] Aneudy Trejo MD [address] [place] [address] [email or web address] Health Maintenance Due Date Last Done Comments Adult Td,Tdap Booster 1950 DEPRESSION SCREENING 1961 HEPATITIS C SCREENING 08/31/1967 LIPID PANEL 08/31/1967 COLOGUARD 1994 COLONOSCOPY 1994 COLORECTAL CANCER SCREENING 1994 FIT TEST 1994 FOBT 1994 SIGMOIDOSCOPY 1994 VIRTUAL COLONOSCOPY 1994 ZOSTER VACCINES (1 of 2) 08/31/1999 CREATININE LEVEL 11/11/2022 11/11/2021, 01/05/2020 POTASSIUM LEVEL 11/11/2022 11/11/2021, 01/05/2020 COVID-19 VACCINE (2 - 2023-2 5 season) 2023 07/01/2020 RSV VACCINE (1 - 1-dose 75+ series) 2024 PNEUMOCOCCAL VACCINES (50+ years) Completed 01/11/2017, 06/21/2015 SMOKING STATUS SCREENING (On ce After 26 Yrs) Completed 06/17/2024 HEPATITIS A VACCINES Aged Out No long er eligible based on patient's age to complete this topic HIB VACCINES Aged Out No longer eligi ble based on patient's age to complete this topic MENINGOCOCCAL VACCINES (ACWY) Aged Out No longer eligible based on patient's age to complete this topic MENINGOCOCCAL VACCINES (B) Aged Out N o longer eligible based on patient's age to complete this topic Medical Devices Not on file Procedures Procedure Name Priority Date/Time Associated Diagnosis Comments BASIC METABOLIC PANEL Routine 11/11/2021 2:45 PM EDT Permanent atrial fibrillation from Last 3 Months or Most Recently Relevant to Health Maintenance Results * (ABNORMAL) Basic metabolic panel (11/11/2021 2:45 PM EDT) SODIUM 140 133 - 146 mmol/L [facility] CHLORIDE 103 96 - 108 mmol/L [facility] POTASSIUM 4.3 3.3 - 5.1 mmol/L [facility] CO2 27 21 - 35 mmol/L [facility] BUN 17 6 - 19 mg/dL [facility] CREATININE 1.10 0.5 - 1.5 mg/dL [facility] GLUCOSE 140(H) 70 - 99 mg/dL [facility] CALCIUM 9.5 8.4 - 10.3 mg/dL [facility] EGFR 71 >59 mL/min/1.7 3m2 [facility] Comment:Estimated glomerular filtration rate calculated using the CKD-EPI refit equation. ANION GAP 14 10 - 20 mmol/L [facility] Blood 11/11/2021 2:45 PM EDT 11/11/2021 2:49 PM EDT Juan Abraham MD LAB BLOOD ORDERABLES nal Result [facility] [address] [place] [id number] from Last 3 Months or Most Recently Relevant to Health Maintenance Insurance MEDICARE PART A & B [place] [place] MEDIC[place] POS PPO REPLACEMENT MEDICARE PART A & B [place] [place] MEDIC[place] POS PPO REPLACEMENT MEDICARE PART A & B Member Subscriber Plan / Payer (Ef fective 2023-Present) Name:Agusto Hilton Member ID:[id number] Relation to Subscriber:Self Name:Agusto Hilton Subscriber ID:[id number] Payer ID:[id number] Group ID:Not on file Type:Medicare Address: [place] [address] MEDICARE POS PPO REPLACEMENT MEDICARE PART A & B [place] [place] MEDIC[place] POS PPO REPLACEMENT MEDICARE PART A & B Member Subscriber Plan / Payer (Ef fective 2023-Present) Name:Agusto Hilton Member ID:[id number] Relation to Subscriber:Self Name:YobaniAgusto sánchez Subscriber ID:[id number] Payer ID:[id number] Group ID:Not on file Type:Medicare Address: [place] [address] MEDICARE POS PPO REPLACEMENT MEDICARE PART A & [place] [place] MEDIC[place] POS PPO REPLACEMENT Care Teams Shuttleless Loom Weaver Relationship Specialty Start Date End Date Herman Figueroa MD [address] [place] [address] [place] [address] PCP - General 02/01/17 Additional Source Comments The information contained in this document represents components of the legal health record. It is not the complete legal health record.[facility]
--- OUTSIDE RECORDS SUMMARY | 2024-11-11 10:52 | XMS_ITS | Patient Health Record ---
Author Organization [facility] Address [address] [place] [address] Care Team Providers Care Dramatic Reader Name Role Phone Herman Figueroa MD Primary Care Provider Jose Gonzalez Unavailable [phone] Allergies Allergen (clinical drug ingredient) Drug/Non Drug [...] Problem Status W/U Status Risk Notes Problem 588283397 Irritable bowel syndrome with diarrhea (K58.0) Active confirmed Problem 95947744 Heme + stool (R19.5) Active confirmed Problem Diverticulosis of colon (032520964) Diverticulosis of colon (K57.30) Active confirmed Plan Of Treatment Pending Test Test Name Order Date CELIAC PANEL #10 08/24/2020 Pathology 10/01/2020 Future Test Test Name Order Date COLONOSCOPY 07/04/2012 COLONOSCOPY 08/24/2020 Insurance Providers Payer Name Payer Address Payer Phone Subscriber Number Group Number Insured Name Patient Relationship to Insured Coverage Start Date Coverage End Date [facility] [address] [place] [id number] [phone] [id number] GINA RODRIGUEZ Self - patient is the insured Medical (General) History Medical History History ICD Code Hiatal hernia-occasional GERD-better wit h change of diet Cardiac stent placement x 1 in 2008-no M I-fine since Allergies-? asthma Denies MT,DM,CVA,renal disease Hyperlipidemia Afib Negative screening colonoscopy in 08/2012 IBS-longstanding > 20 years Surgical History Surgery Date(Month/Year) Cholecystecomy in 2001 Cyst removed from back
[2024-11-11 11:06] LABS: PSA,Total (Free>4and<10) 4.01 ng/mL (0.00-4.00)
[2024-11-12 13:23] LABS: Free Prostate Spec Ag 0.5 ng/mL; Percent Free Prostate Spec Ag 15 % (calc) (>25)
== END 2024-11-11 10:07 | disposition home or self-care (01) ==
LOC: HO.LNP 10:06
PROVIDERS: Visit Provider Internal Medicine
DX: R97.20 Elevated prostate specific antigen [PSA] (principal)
CPT/HCPCS: 84153; 84154

== ENCOUNTER 2025-01-08 15:29 | Outpatient (REF) | payer MEDICARE, SELFPAY ==
--- OUTSIDE RECORDS SUMMARY | 2024-09-16 10:57 | XMS_ITS ---
Author Organization Herman Figueroa MD Address [address] [facility] [address] [place] [phone] Care Team Providers Care Porcelain Finish Sprayer Name Role Phone CarolinaAbbyn Primary Care Provider [phone] REASON FOR VISIT med issue Encounters Encounter Location Date Provider Diagnosis Herman Figueroa MD 10 [facility] [address] [place] [phone] 09/16/2024 Herman Figueroa Plan Of Treatment Next Appt Details Provider Name:Herman Zaidi iejaimie, 02/24/2025 07:30:00 AM, [address] [place] [address], [address], [phone], Provider Name:Herman gardner, 03/03/2025 01:45:00 PM, [address] [place] [address], [address], [phone], Provider Name:Herman gardner, 09/01/2025 07:15:00 AM, [address] [place] [address], [address], [phone], Provider Name:Herman Zaidi ier, 09/08/2025 02:30:00 PM, [address], [address], [place], [phone], Progress Notes * Agusto RODRIGUEZ RDOB:1950 ( 74 yo M)Acc No.[id number]:09/16/2024 Patient: Agusto LEVINE :1950 A ge:74 Y S ex:Male Address:[address] [place] [address] * true * Date: Generated for [place] walker/Edgardo/Lisasmitting on: 0 01/08/2025 07:35 PM EDT
--- OUTSIDE RECORDS SUMMARY | 2024-10-06 04:00 | XMS_ITS ---
Author Organization Herman Figueroa MD Address [address] [place] [phone] Care Team Providers Care Thread Puller Name Role Phone SwatiHerman salgado Primary Care Provider Results Component Value Reference Range Notes PSA,Total (Free>4and<10) Reviewed date:10/15/2024 06:24:08 PM Interpretation:10-13-2024 Performing Lab:[facility], [address] [place] [phone] Notes/Report: PSA,Total (Free>4and<10) 4.75 0.00-4.00 ng/mL PSA methodology: Briceño Alinity i Chemiluminescent Microparticle Immunoassay (CMIA) REASON FOR VISIT PSA , TOTAL Encounters Encounter Location Date Provider Diagnosis Herman Figueroa MD [address] [place] [phone] 10/06/2024 Herman Figueroa 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 Assessments Encounter Date Diagnosis (ICD Code) Assessment Notes Treatment Notes Treatment Clinical Notes Section Notes 10/06/2024 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 - I25.10) Plan Of Treatment Next Appt Details Provider Name:Herman Zaidi ier, 02/24/2025 07:30:00 AM, 10 [facility], Suite [facility], [place], [place], [phone], Provider Name:Herman Zaidi ier, 03/03/2025 01:45:00 PM, [address] [facility] [address], [address], [place], [place], [phone], Provider Name:Herman Zaidi ier, 09/01/2025 07:15:00 AM, [address] [place] [address], Suite [facility], [place], [place], [phone], Provider Name:Herman Zaidi ier, 09/08/2025 02:30:00 PM, [address] [place] [address], [address] [place] [address], [phone], Progress Notes * JENNIFER Agusto RDOB:1950 ( 74 yo M)Acc No.[id number]:10/06/2024 Progress Note Patient: Agusto LEVINE Provider: Yessi Figueroa MD :1950 A ge:74 Y S ex:Male Date:10/06/2024 Address:[address] [place] [address] Subjective: * Chief Complaints: * 1 . PSA , TOTAL. * Medical History: Objective: * Vitals: Assessment: * Assessment: 1. 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 Plan: * Treatment: * Procedure Codes: 3 6415 VENIPUNCT, ROUTINE* * * The named appointment provid er may or may not be the originator of this progress note, and it is not deemed complete until electronically signed by the appointment provider. Sign off status: Pending * Provider: Yessi Figueroa MD Date: 10/06/2024 Generated for [place] walker/Edgardo/eTbriesmitting on: 0 01/08/2025 07:35 PM EDT
--- OUTSIDE RECORDS SUMMARY | 2024-10-13 09:30 | XMS_ITS ---
Author Organization Herman Figueroa MD Address [address] [place] [phone] Care Team Providers Care Print Designer Name Role Phone Herman Figueroa Primary Care [...] ER 360 MG TAKE 1 CAPSULE BY [facility] EVERY DAY for 90 Active Hyoscyamine Sulfate [...] Location Date Provider Diagnosis Herman Figueroa MD [address] [place] [address] Drive [address] [place] [phone] 10/13/2024 Herman Figueroa Rising PSA level R97.20 [...] Up: 4 Weeks, Reason: Provider Name:Herman gardner, 02/24/2025 07:30:00 AM, [address] [place] [address], Suite [facility], [place], [place], [phone], Provider Name:Herman gardner, 03/03/2025 01:45:00 PM, [address] [place] [address], [address], [phone], Provider Name:Herman gardner, 09/01/2025 07:15:00 AM, [address], [address], [place], [place], [phone], Provider Name:Herman Zaidi ier, 09/08/2025 02:30:00 PM, [address], [address], [place], [place], [phone], Progress Notes * Agusto RODRIGUEZ RDOB:1950 ( 74 yo M)Acc No.[id number]:10/13/2024 Patient: Agusto LEVINE Provider: Yessi Figueroa MD :1950 A ge:74 Y S ex:Male Date:10/13/2024 Address:[address] [place], [place] [phone] Subjective: * Chief Complaints: * 6 WEEK [...] auscultation bilaterally. Assessment: * Assessment: 1. R ising PSA level - R97.20 (Primary) 2 . [...] 0 10/13/2024 Generated for [place] walker/Edgardo/Lisasmitting on: 0 01/08/2025 07:35 PM EDT History and Physical Notes * HPI (History [...]
--- OUTSIDE RECORDS SUMMARY | 2024-11-11 05:00 | XMS_ITS ---
Author Organization Herman Figueroa MD Address [address] [place] [phone] Care Team Providers Care Cuff Maker Name Role Phone SujitHerman salas Primary Care Provider [phone] Results Component Value Reference Range Notes PSA,Total (Free>4and<10) Reviewed date:11/11/2024 01:16:40 PM Interpretation: Performing Lab:[facility], [address] [place] [phone] Notes/Report: PSA,Total (Free>4and<10) 4.01 0.00-4.00 ng/mL PSA methodology: Briceño Alinity i Chemiluminescent Microparticle Immunoassay (CMIA) REASON FOR VISIT Repeat 1 month PSA Encounters Encounter Location Date Provider Diagnosis Herman Figueroa MD [address] [place] [phone] 11/11/2024 Herman Figueroa Rising PSA level R97.20 Assessments Encounter Date Diagnosis (ICD Code) Assessment Notes Treatment Notes Treatment Clinical Notes Section Notes 11/11/2024 Rising PSA level (ICD-10 - R97.20) Plan Of Treatment Next Appt Details Provider Name:Herman Zaidi ier, 02/24/2025 07:30:00 AM, [address], [address], [place], [phone], Provider Name:Herman Zaidi ier, 03/03/2025 01:45:00 PM, [address] [facility], [address], [place], [phone], Provider Name:Herman Zaidi ier, 09/01/2025 07:15:00 AM, [address], [address], [place], [phone], Provider Name:Herman Zaidi ier, 09/08/2025 02:30:00 PM, [address] [facility], Suite [facility], [place], [place], [phone], Progress Notes * JENNIFERAgusto Carter RDOB:1950 ( 74 yo M)Acc No.[id number]:11/11/2024 Progress Note Patient: Agusto LEVINE Provider: Yessi Figueroa MD :1950 A ge:74 Y S ex:Male Date:11/11/2024 Address:[address] [place], [place] [phone] Subjective: * Chief Complaints: * 1 . Repeat 1 month PSA. * Medical History: Objective: * Vitals: Assessment: * Assessment: 1. R migueng PSA level - R97.20 (Primary) Plan: * Treatment: * Procedure Codes: 3 6415 VENIPUNCT, ROUTINE* * * The named appointment provid er may or may not be the originator of this progress note, and it is not deemed complete until electronically signed by the appointment provider. Sign off status: Pending * Provider: Yessi Figueroa MD Date: 11/11/2024 Generated for [place] ng/Faxing/eTransmitting on: 01/08/2025 07:34 PM EDT
--- OUTSIDE RECORDS SUMMARY | 2025-01-08 09:00 | XMS_ITS ---
Author Organization Herman Figueroa MD Address [address] [place] [phone] Care Team Providers Care Salesperson Toy Trains And Accessories Name Role Phone SujitHerman pompa Primary Care Provider Results Component Value Reference Range Notes PSA,Total (Free>4and<10) (No t yet reviewed by provider) Interpretation: Performing Lab:[facility], [address] [place] [phone] Notes/Report: PSA,Total (Free>4and<10) 3.94 0.00-4.00 ng/mL A [...] Location Date Provider Diagnosis Herman Figueroa MD [address] [place] [phone] 01/08/2025 Herman Figueroa Elevated PSA R97.20 ; [...] 01/08/2025 Next Appt Details Provider Name:Herman gardner, 02/24/2025 07:30:00 AM, [address] [place] [address], [phone], Provider Name:Herman gardner, 03/03/2025 01:45:00 PM, [address] [place] [address], [phone], Provider Name:Herman gardner, 09/01/2025 07:15:00 AM, [address] [place] [address], [phone], Provider Name:Herman gardner, 09/08/2025 02:30:00 PM, [address] [place] [address], [phone], Progress Notes * Agusto RODRIGUEZ RDOB:1950 ( 74 yo M)Acc No.[id number]:01/08/2025 Progress Note Patient: Agusto LEVINE Provider: Yessi Figueroa MD :1950 A ge:74 Y S ex:Male Date:01/08/2025 Address:[address] [place], [place] [phone] Subjective: * Chief Complaints: * 1 . [...] * Procedure Codes: 3 6415 VENIPUNCT, ROUTINE*, 84925 FLU VACC PRSV FREE INC ANTIG, G0008 ADMN FLU VAC NO FEE SCHED SAME DAY * * The named appointment provid er may or may not be the originator of this progress note, and it is not deemed complete until electronically signed by the appointment provider. Sign off status: Pending * Provider: Yessi Figueroa MD Date: 01/08/2025 Generated for Hamilton walker/Edgardo/Danielitting on: 01/08/2025 07:35 PM EDT
[2025-01-08 16:58] LABS: PSA,Total (Free>4and<10) 3.94 ng/mL (0.00-4.00)
--- OUTSIDE RECORDS SUMMARY | 2025-01-08 19:34 | XMS_ITS | Encounter Summary ---
Author Organization [facility] Address [address] [facility] [address] [place] [address] Phone Care Team Providers Care Credit Reporter Name Role Phone Herman Figueroa MD Primary Care Provider Encounter Details Date Type Department Care Team (Late st Contact Info) Description 02/18/2021 Procedure Pass Non-Invasive Cardiology [address] [place] [address] Social History Tobacco Use Types Packs/Day Years Used Date Smoking Tobacco: Never Smokeless Tobacco: Never Alcohol Use Standard Drinks/Week Comments Yes 0 (1 standard drink = 0.6 oz pur e alcohol) Occasionally Sex and Gender Information Value Date Recorded Sex Assigned at Not on file Legal Sex Male 10:02 PM EDT Gender Identity Not on file Sexual Orientation Not on file documented as of this encounter Plan of Treatment Upcoming Encounters Date Type Department Care Team (Late Contact Info) Description 06/23/2025 2:30 PM EDT Office Visit [facility] [address] Floor, [address] [place] [address] Bridgette Harrison DNP 22 [facility], [address] [place] [address] documented as of this encounter Visit Diagnoses Not on filedocumented in this encounter Care Teams Credit Reporter Relationship Specialty Start Date End Date Herman Figueroa MD [address] [place] [address] [place] [address] PCP - General 02/01/17 documented as of this encounter Additional Source Comments The information contained in this document represents components of the legal health record. It is not the complete legal health record.[facility]
--- OUTSIDE RECORDS SUMMARY | 2025-01-08 19:34 | XMS_ITS | Encounter Summary ---
Author Organization [facility] Address [address] [facility] [address] [place] [address] Phone Care Team Providers Care School Age Teacher Name Role Phone Herman Figueroa MD Primary Care Provider Encounter Details Date Type Department Care Team (Late st Contact Info) Description 03/22/2021 Procedure Pass Non-Invasive Cardiology [address] [place] [address] Social History Tobacco Use Types Packs/Day Years [...] Description 06/23/2025 2:30 PM EDT Office Visit [facility] [address], [address] [place] [address] Bridgette Harrison DNP 22 [facility], [address] [place] [address] documented as of this encounter Visit Diagnoses Not on filedocumented in this encounter Care Teams School Age Teacher Relationship Specialty Start Date End Date Herman Figueroa MD [address] [place] [address] [place] [address] PCP - General 02/01/17 documented as of this encounter Additional Source Comments The information contained in this document represents components of the legal health record. It is not the complete legal health record.[facility]
--- OUTSIDE RECORDS SUMMARY | 2025-01-08 19:34 | XMS_ITS | Encounter Summary ---
Author Organization [facility] Address [address] [place] [address] [place] [address] Phone Care Team Providers Care Head Inspector And Center Marker Name Role Phone Herman Figueroa MD Primary Care Provider Reason for Referral * MRI/CAT Scan - Closed Specialty Diagnoses / Procedures Referred By Contac t Referred To Contact Radiology Diagnoses Coronary artery disease involving pit river coronary artery of pit river heart without angina pectoris Procedures NC Myocardial Perfusion Exercise Multiple Octaviano Rowland NP Phone: tel: Referral ID Status Reason Start Date Expiration Date Visits Re quested Visits Authorized [id number] Closed 01/23/2019 04/23/2019 1 1 Encounter Details Date Type Department Care Team (Latest Contact Info) Description 01/21/2019 Transcribe Orders [facility] [address], [address] [place] [address] Octaviano Rowland NP [address] [place] [address] Coronary artery disease involving pit river coronary artery of pit river heart without angina pectoris (Primary Dx) Social History Tobacco Use Types Packs/Day Years [...] Care Team (Late st Contact Info) Description 06/23/2025 2:30 PM EDT Office Visit [facility] 22 [facility] 3rd Floor, [address] [place] [address] Bridgette Harrison DNP 22 [facility], [address] [place] [address] [email or web address] documented as of this encounter Results * NC Myocardial Perfusion Exercise Multiple (01/28/2019 2:04 PM EDT) Nuc Stress EF 61 % LV Systolic Volume 51 mL LV Diastolic Volume 102 mL EF 50 % LV Systolic Volume Index 40 mL/m2 LV Diastolic Volume Index 103 mL/m2 Anatomical Region Laterality Modality Heart, Vascular Ultrasound Narrative 02/03/2019 9:05 AM EDT Normal study. There is no evidence of myocardial infarction or ischemia. Normal LV size and function with no regional wall motion abnormalities. Very low likelihood of hemodynamically significant coronary artery disease. Low risk study for myocardial events or cardiac in the next two years. Nuclear Study Quality TYPE OF STUDY: Myocardial Perfusion Imaging after exercise utilizing a standard Luis protocol with gated SPECT. PROTOCOL USED: One day rest- stress protocol in the supine and prone position. Images were obtained in gated tomographic technique. Images were processed in SPECT format, reconstructed tomographically and compared [id number] in short axis, horizontal long axis and vertical long axis. DOSE: Technetium 99m Sestamibi 7.2 mCi injected intravenously at rest on 01/28/2019 with post injection scan time of 60 minutes. Technetium 99m Sestamibi 21.3 mCi injected intravenously during stress on 01/28/2019 with post injection scan time of 20 minutes. Overall image quality is good. Diaphragmatic attenuation artifact is present. Study was gated successfully. Perfusion Defect The lung to heart ratio is 0.35. Response to Stress BMI: 23.31 Pt exercised for 8:07 min on a LUIS protocol achieving 10.10 METS. Test terminated due to fatigue. Baseline resting HR was 59. Max heart rate achieved was 131 (86% MPHR). 1. EKG - Baseline EKG showed normal sinus bradycardia. During exercise and in recovery, there were 0.5 to 1 mm horizontal to upsloping ST depressions in the inferolateral leads. 2. SYMPTOMS -no chest pain 3. EXERCISE PHYSIOLOGY -good functional capacity for age. Blood pressure at baseline is 140/74, up to 180/82 at peak exercise 138/76 on discharge from the stress lab. 4. ARRHYTHMIAS -occasional PVCs. At peak exercise there were frequent PVCs for about 30 seconds. Conclusion - abnormal stress test with EKG changes mildly suggestive of ischemia. Nuclear images pending and will be reported separately. See attached stress report for full details. Everton Ferrari WEBFOCUS DEVELOPER . Perfusion Comments Stress LV cavity volume was 65 mL. Resting LV cavity volume was 69 mL. The stress/rest perfusion ratio is 0.94. There is no evidence of transient ischemic dilation (TID). The TID ratio was 0.9. Stress Function Comments Left ventricular function post-stress was normal. Post-stress ejection fraction was 61%. Stress end diastolic index: 103 mL/m2. Stress end systolic index: 40 mL/m2. Nuclear Prior Study There is no prior study available for comparison. Rest Function Comments Left ventricular function at rest was normal. Resting ejection fraction was 50%. Rest end diastolic index: 102 mL. Rest end systolic index: 51 mL. Perfusion Scoring Stress Summed Score: 0 Percent Normal: 0.00% The left ventricular perfusion is normal. Perfusion Scoring Resting Summed Score: 0 Percent Normal: 0.00% The left ventricular perfusion is normal. Octaviano Rowland NP CV NM CARDIAC Final R esult documented in this encounter Visit Diagnoses Diagnosis Coronary artery disease involving pit river coronary artery of pit river heart without angina pectoris- Primary Coronary artery disease involving pit river coronary artery of pit river heart without angina pectoris documented in this encounter Care Teams Head Inspector And Center Marker Relationship Specialty Start Date End Date Herman Figueroa MD [address] [place] [address] [place] [address] PCP - General 02/01/17 documented as of this encounter Additional Source Comments The information contained in this document represents components of the legal health record. It is not the complete legal health record.[facility]
--- OUTSIDE RECORDS SUMMARY | 2025-01-08 19:34 | XMS_ITS | Clinical Summary ---
Author Organization [facility] Address [address] [address] Phone Care Team Providers Care Home Care Coordinator Name Role Phone Herman Figueroa MD Primary [...] % cream 1 application.. 2 Active metoprolol tartrate (LOPRESSOR) 100 MG tablet Take 100 mg by mouth 2 (two) times a day. Insurance wouldn't pay for succinate. 5 Active metoprolol succinate (TOPROL-XL) 50 MG 24 hr tablet TAKE 2 TABLETS BY MOUTH EVERY MORNING AND 1 TABLET BY MOUTH EVERY EVENING 270 tablet 3 5 12/24/19 25 Discontinu ed(No longer taking) Active Problems Problem Noted Date Diagnosed Date Longstanding persistent atrial fibrillation 05/18 Permanent atrial fibrillation 02/18/2021 Assessment & Plan (12/23/2024 5:18 PM EDT): Pt continues in AF with good rate control. Pt is currently on metoprolol, diltiazem and digoxin every other day. Pt is on Xarelto for CVA prophylaxis. He denies any bleeding issues or cardiac symptoms. Will get a digoxin level for monitoring. Pt is overall feeling well. No changes in management at this time. Plan: Continue metoprolol Continue diltiazem Continue digoxin Continue Xarelto Digoxin level Follow-up in 6 months Assessment & Plan (09/29/2021 2:36 PM EDT): [...] He did have blood work done at [facility] in August 2021 that shows a creatinine [...] his trial. 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 He noted he is a Amish and does want to avoid procedures which [...] Continue to consider A. fib ablation with javascript ui developer if pt converts back to atrial fibrillation. [...] current dose of pravastatin Assessment & Plan (12/23/2024 5:19 PM EDT): Pt is currently on pravastatin. He is tolerating well. He recently had labs with his PCP. Will request records. No changes in management. Plan: Continue pravastatin Assessment & Plan (05/25/2022 1:30 PM [...] has been intolerant to higher intensity statins. Encounters Date Type Department Care Team Description 12/29/2024 Orders Only [facility] [address], [address] [place] [address] Provider, MD Gracie 12/23/2024 3:03 PM EDT - 12/23/2024 11:59 PM EDT Hospital Encounter [facility] [address] [place] [address] Bridgette Harrison DNP Discharge Disposition: Home or Self Care 12/23/2024 2:30 PM EDT Office Visit [facility] [address], [address] [place] [address] Bridgette Harrison, CORTEZ Permanent atrial fibrillation (Primary Dx); Pure hypercholesterolemia from Last 3 Months Immunizations Immunization Administration Dates Next Due COVID-19 (Pre-02/05) Pfizer Vaccine, mRNA, PF INFLUENZA, SPLIT VIRUS, TRIVALENT PF 01/02/2017, 02/22/2016 Influenza High-Dose Quadrivalent Preservative Fr ee IM 02/24/2020 Influenza High-Dose Trivalent Preservative Free IM 02/03/2019 Influenza Quadrivalent Preservative Free IM 05/18 Pneumococcal conjugate PCV13 01/11/2017 Pneumococcal polysaccharide PPSV23 [...] Sign Reading Time Taken Comments Blood Pressure 104/52 12/23/2024 2:32 PM EDT Pulse 48 12/23/2024 2:32 PM EDT Temperature - - Respiratory Rate - - Oxygen Saturation 96% 12/23/2024 2:32 PM EDT Inhaled Oxygen Concentration - - Weight 88.5 kg (195 lb) 12/23/2024 2:32 PM EDT Height 182.9 cm (6' 0.01 ) 12/23/2024 2:32 PM ED T Body Mass Index 26.44 12/23/2024 2:32 PM EDT Plan of Treatment Upcoming Encounters Date Type Department Care Team (Late st Contact Info) Description 06/23/2025 2:30 PM EDT Office Visit [facility] [address] [facility] 3rd Floor, [address] [place], [place] [phone] Bridgette Harrison DNP 22 [facility], [address] [place] [address] [email or web address] Health Maintenance Due Date Last Done Comments Adult Td,Tdap Booster 1950 DEPRESSION SCREENING 1961 HEPATITIS C SCREENING 08/31/1967 LIPID PANEL 08/31/1967 COLOGUARD 1994 COLONOSCOPY 1994 COLORECTAL CANCER SCREENING 1994 FIT TEST 1994 FOBT 1994 SIGMOIDOSCOPY 1994 VIRTUAL COLONOSCOPY 1994 ZOSTER VACCINES (1 of 2) 08/31/1999 CREATININE LEVEL 11/11/2022 11/11/2021, 01/05/2020 POTASSIUM LEVEL 11/11/2022 11/11/2021, 01/05/2020 RSV VACCINE (1 - 1-dose 75+ series) 2024 INFLUENZA VACCINE (#1) 2024 , 02/03/2019, 01/02/2017, Additional history exists COVID-19 VACCINE (2 - 2024- season) 2024 07/01/2020 PNEUMOCOCCAL VACCINES (50+ years) Completed 01/11/2017, 06/21/2015 SMOKING STATUS SCREENING (Once After 26 Yrs) Completed 06/17/2024 HEPATITIS A [...] Procedure Name Priority Date/Time Associated Diagnosis Comments OUTSIDE LAB Routine 12/29/2024 12:51 PM EDT DIGOXIN LEVEL Routine 12/23/2024 3:26 PM EDT Permanent atrial fibrillation BASIC METABOLIC PANEL Routine 11/11/2021 2:45 PM EDT Permanent atrial fibrillation from Last 3 Months or Most Recently Relevant to Health Maintenance Results * Outside Lab (12/29/2024 12:51 PM EDT) us Gracie Marshall MD LAB BLOOD ORDERABLES Jie l Result * Digoxin level (12/23/2024 3:26 PM EDT) DIGOXIN 0.9 0.9 - 2.0 ng/mL [facility] Blood 12/23/2024 3:26 PM EDT 12/23/2024 3:27 PM EDT us Bridgette Harrison DNP LAB BLOOD ORDERABLES Final Resul t Performing Organization Address City/State/[facility] Co de Phone Number [address] [address] * (ABNORMAL) Basic metabolic panel (11/11/2021 2:45 PM EDT) SODIUM 140 133 - 146 mmol/L [facility] CHLORIDE 103 96 - 108 mmol/L [facility] POTASSIUM 4.3 3.3 - 5.1 mmol/L [facility] CO2 27 21 - 35 mmol/L [facility] BUN 17 6 - 19 mg/dL [facility] CREATININE 1.10 0.5 - 1.5 mg/dL [facility] GLUCOSE 140(H) 70 - 99 mg/dL [facility] CALCIUM 9.5 8.4 - 10.3 mg/dL [facility] EGFR 71 >59 mL/min/1.7 3m2 [facility] Comment:Estimated glomerular filtration rate calculated using the CKD-EPI refit equation. ANION GAP 14 10 - 20 mmol/L [facility] Blood 11/11/2021 2:45 PM EDT 11/11/2021 2:49 PM EDT Juan Abraham MD LAB BLOOD ORDERABLES Fi nal Result [address] [address] from Last 3 Months or Most Recently Relevant to Health Maintenance Insurance MEDICARE PART A & B MEDICARE POS PPO REPLACEMENT MEDICARE PART A & B Member Subscriber Plan / Payer (Ef fective 2023-) Name:Agusto Hilton Member ID:[id number] Relation to Subscriber:Self Name:Agusto Hilton Subscriber ID:[id number] Payer ID:[id number] Group ID:Not on file Type:Medicare Address: [employer] [address] [place] [address] [place] [address] MEDICARE POS PPO REPLACEMENT MEDICARE PART A & B MEDICARE POS PPO REPLACEMENT MEDICARE PART A & B Member Subscriber Plan / Payer (Ef fective 2023-Present) Name:Agusto Hilton Member ID:[id number] Relation to Subscriber:Self Name:Agusto Hilton Subscriber ID:[id number] Payer ID:[id number] Group ID:Not on file Type:Medicare Address: [employer] [address] MEDICARE POS PPO REPLACEMENT MEDICARE PART A & B [place] MEDIC[place] POS PPO REPLACEMENT MEDICARE PART A & B [place] MEDICARE POS PPO REPLACEMENT Care Teams Home Care Coordinator Relationship Specialty Start Date End Date Herman Figueroa MD [address] [place] [address] Dr NAYAK [address] [place] [address] [place] [address] PCP - General 02/01/17 Additional Source Comments The information contained in this document represents components of the legal health record. It is not the complete legal health record.[facility]
--- OUTSIDE RECORDS SUMMARY | 2025-01-08 19:35 | XMS_ITS | Encounter Summary ---
Author Organization [facility] Address [address] [place] [address] [place] [address] Phone Care Team Providers Care Crimper Assembler Name Role Phone Herman Figueroa MD Primary Care Provider Encounter Details Date Type Department Care Team (Late st Contact Info) Description 12/29/2024 Orders Only [facility] [address], [address] [place] [address] ProviderGracie MD [address] [place], [place] [id number] Social History Tobacco Use Types Packs/Day Years [...] Description 06/23/2025 2:30 PM EDT Office Visit [facility] [address], [address] [place] [address] HunterBridgetteCORTEZ [address] [facility], [address] [place] [address] [email or web address] documented as of this encounter Procedures Procedure Name Priority Date/Time Associated Diagnosis Comments OUTSIDE LAB Routine 12/29/2024 12:51 PM EDT documented in this encounter Results * Outside Lab (12/29/2024 12:51 PM EDT) us Historical Provider LAB BLOOD ORDERABLES Jie l Result documented in this encounter Visit Diagnoses Not on filedocumented in this encounter Care Teams Crimper Assembler Relationship Specialty Start Date End Date Herman Figueroa MD [address] [place] [address] Dr NAYAK [address] [place] [address] PCP - General 02/01/17 documented as of this encounter Additional Source Comments The information contained in this document represents components of the legal health record. It is not the complete legal health record.[facility]
--- OUTSIDE RECORDS SUMMARY | 2025-01-08 19:35 | XMS_ITS | Encounter Summary ---
Author Organization [facility] Address [address] [facility] [address] [place] [address] Phone Care Team Providers Care A P Manager Name Role Phone Herman Figueroa MD Primary Care Provider Encounter Details Date Type Department Care Team (Late st Contact Info) Description 09/29/2021 Procedure Pass Non-Invasive Cardiology [address] [place] [address] Social History Tobacco Use Types Packs/Day Years [...] Description 06/23/2025 2:30 PM EDT Office Visit [facility] [address], [address] [place] [address] Bridgette Harrison DNP 22 [facility], [address] [place] [address] documented as of this encounter Visit Diagnoses Not on filedocumented in this encounter Care Teams A P Manager Relationship Specialty Start Date End Date Herman Figueroa MD [address] [place] [address] [place] [address] PCP - General 02/01/17 documented as of this encounter Additional Source Comments The information contained in this document represents components of the legal health record. It is not the complete legal health record.[facility]
--- OUTSIDE RECORDS SUMMARY | 2025-01-08 19:35 | XMS_ITS | Encounter Summary ---
Author Organization [facility] Address [address] [place] [address] Phone Care Team Providers Care Hand Patcher Name Role Phone Herman Figueroa MD Primary Care Provider Encounter Details Date Type Department Care Team (Late st Contact Info) Description 11/23/2022 Procedure Pass Echo Lab [address] [place], [place] [id number] Social History Tobacco Use Types Packs/Day Years [...] Description 06/23/2025 2:30 PM EDT Office Visit [facility] [address] [place] [address] 3rd Floor, [address] [place], [place] [phone] Bridgette Harrison DNP [address], [address] [place], [place] [phone] [email or web address] documented as of this encounter Visit Diagnoses Not on filedocumented in this encounter Care Teams Hand Patcher Relationship Specialty Start Date End Date Herman Figueroa MD [address] [place] [address] [place] [address] PCP - General 02/01/17 documented as of this encounter Additional Source Comments The information contained in this document represents components of the legal health record. It is not the complete legal health record.[facility]
--- OUTSIDE RECORDS SUMMARY | 2025-01-08 19:35 | XMS_ITS | Patient Health Record ---
Author Organization Herman Figueroa MD Address [address] [place], [place] [id number] Care Team Providers Care Welder Fitter Name Role Phone Herman Figueroa Primary Care Provider Allergies Allergen (clinical drug ingredient) Drug/Non Drug Allergy documented on EMR Reaction Allergy Type Onset Date Status atorvastatin Lipitor myalgia Drug Allergy Acti ve Results Component Value Reference Range Notes Complete Blood Count Auto Di ff Reviewed date:08/28/2024 12:43:28 PM Interpretation: Performing Lab:[facility], [address] [place] [phone] Notes/Report: White Blood Count 7.6 4.8-10.8 X10*3/uL [...] COR RECTED REPORT COR RECTED REPORT Comprehensive Harmony. Panel Fa st Reviewed date:08/28/2024 12:52:53 PM Interpretation: Performing Lab:[facility], [address] [place] [phone] Notes/Report: Sodium 143 135-145 mmol/L Potassium 4.4 [...] Alkaline Phosphatase 70 39-117 U/L Lipid Panel Reviewed date:08/28/2024 12:42:29 PM Interpretation: Performing Lab:[address] [address] Notes/Report: Triglycerides 82 <150 mg/dL Desirable Triglyceride: [...] in patients with liver disease. PSA,Total (Free>4and<10) Reviewed date:09/05/2024 09:34:36 AM Interpretation:eleonora 09/04 psa Performing Lab:[address] [phone] Notes/Report: PSA,Total (Free>4and<10) 4.37 0.00-4.00 ng/mL PSA methodology: Briceño Alinity i Chemiluminescent Microparticle Immunoassay (CMIA) Microalbumin, Random Reviewed date:08/28/2024 12:45:55 PM Interpretation: Performing Lab:[address] [phone] Notes/Report: Creatinine Urine 71.78 Microalbumin Urine 9.0 Microalbum/Creatinine Ratio Ur 12.5 <30 ug/mg cr Albumin/Creatinine Ratio Reference Ranges: Normal: < 30 ug/mg creatinine Microalbuminuria: 30 - 300 ug/mg creatinine Clinical Albuminuria: > 300 ug/mg creatinine Hemoglobin A1c Reviewed date:08/28/2024 12:45:47 PM Interpretation: Performing Lab:[address] [place] [address] Notes/Report: Hemoglobin A1c % 6.2 <6.0 % [...] average glucose, using the formula of the N4F-Ermszyf Average Glucose study (ADAG), Diabetes Care, Vol.31,#8, 2007 UA ClnCatch+Micro w/rflx Cul t Reviewed date:08/28/2024 12:47:43 PM Interpretation: Performing Lab:[address] [phone] Notes/Report: Urine, Clean Catch Color Urine Yellow Appearance Urine Clear PH 7.5 5.0-9.0 Glucose Urine UA Negative Negative mg/dL Urine Blood Negative Negative Specific [place] - Urine 1.010 1.005-1.025 Urine Protein Negative Neg-Trace mg/dL Urine Ketones Negative Negative mg/dL Nitrite Urine Negative Negative Leukocyte Esterase Urine Negative Negative RBC Urine 0-2 0-2 /HPF WBC Urine 0-5 0-5 /HPF Squamous Epithelial Cell Urine 0-2 0-2 /HPF Bacteria Urine None Seen None Seen Hyaline Casts Urine 0-2 0-2 /LPF PSA,Total (Free>4and<10) Reviewed date:10/15/2024 06:24:08 PM Interpretation:10-13-2024 Performing Lab:[facility], [address] [place] [phone] Notes/Report: PSA,Total (Free>4and<10) 4.75 0.00-4.00 ng/mL PSA methodology: Briceño Alinity i Chemiluminescent Microparticle Immunoassay (CMIA) PSA,Total (Free>4and<10) Reviewed date:11/11/2024 01:16:40 PM Interpretation: Performing Lab:[facility], [address] [place] [phone] Notes/Report: PSA,Total (Free>4and<10) 4.01 0.00-4.00 ng/mL PSA methodology: LoLo Alinity i Chemiluminescent Microparticle Immunoassay (CMIA) PSA,Total (Free>4and<10) (No t yet reviewed by provider) Interpretation: Performing Lab:[facility], [address] [place] [phone] Notes/Report: PSA,Total (Free>4and<10) 3.94 0.00-4.00 ng/mL A [...] Briceño Alinity i Chemiluminescent Microparticle Immunoassay (CMIA) XR lumbar spine 2-3V Reviewed date:04/30/2024 10:12:45 AM Interpretation: Performing Lab: Notes/Report: [address] [address] XRay Report Signed Patient: Agusto Hilton MR#: [id number] : 1950 Acct:[id number] Age/Sex: 73 / M ADM Date: 03/11/24 Loc: .LILIAM Attending Dr: Herman Figueroa MD Ordering Physician: Herman Figueroa MD Date of Service: 03/11/24 Procedure(s): XR lumbar spine 2-3V Accession Number(s): [id number] cc: Herman Figueroa MD EXAMINATION: XR LUMBOSACRAL [...] by: Joao Mota MD 04/30/2024 09:21 AM EST RP Dictated By: Joao Mota MD Signed By: <Electronically signed by Joao Mota MD in OV> 04/30/249[address] DD/ 1327 TD/TT: 03/11/24 1343 Door Repairer Bus: [address] [address] XRay Report Signed Patient: Agusto Hilton MR#: [id number] : 1950 Acct:[id number] Age/Sex: 73 / M ADM Date: 03/11/24 Loc: HO.XRAY Attending Dr: Herman Figueroa MD Ordering Physician: Herman Figueroa MD Date of Service: 03/11/24 Procedure(s): XR lum bar spine 2-3V Accession Number(s): [id number] cc: Herman Figueroa MD EXAMINATION: XR LUMBOSACRAL [...] by: Joao Mota MD 04/30/2024 09:21 AM EST RP Dictated By: Joao Mota MD Signed By: <Electronically signed by Joao Mota MD in OV> 04/30/24920 DD/ 1327 TD/TT: 03/11/24 1343 Door Repairer Bus: XR chest 2V Reviewed date:03/27/2024 03:05:48 PM Interpretation:orders entered Performing Lab: Notes/Report: [address] [address] XRay Report Signed Patient: Agusto Hilton MR#: [id number] : 1950 Acct:[id number] Age/Sex: 73 / M ADM Date: 03/06/24 Loc: HO.XRAY Attending Dr: Herman Figueroa MD Ordering Physician: Herman Figueroa MD Date of Service: 03/06/24 Procedure(s): XR chest 2V Accession Number(s): [id number] cc: Herman Figueroa MD EXAMINATION: XR CHEST [...] by: Bryan Rivera MD 03/07/2024 08:[address] [facility] Dictated By: Bryan Choe MD Signed By: <Electronically signed by Bryan Eden MD in OV> 03/07/24 0824 DD/ 1536 TD/TT: 03/06/24 1559 Door Repairer Bus: [address] [address] XRay Report Signed Patient: Agusto Hilton MR#: [id number] : 1950 Acct:[id number] Age/Sex: 73 / M ADM Date: 03/06/24 Loc: HORachidXRAY Attending Dr: Herman Figueroa MD Ordering Physician: Herman Figueroa MD Date of Service: 03/06/24 Procedure(s): XR chest 2V Accession Number(s): [id number] cc: Herman Figueroa MD EXAMINATION: XR CHEST [...] Bryan Rivera MD 03/07/2024 08:24 AM EST Dictated By: Bryan Graham MD Signed By: <Electronically signed by Bryan Eden MD in OV> 03/07/24 0824 DD/ 1536 TD/TT: 03/06/24 1559 Door Repairer Bus: PSA Free and Total Reviewed date:09/04/2024 03:33:23 PM Interpretation:09-04-2024 Performing Lab:[facility], [address] [place] [phone] Notes/Report: Prostate Specific Ag Total 4.4 < OR = 4.0 ng/mL Percent Free Prostate Spec Ag 16 >25 % (calc) PSA(ng/mL) Free PSA(%) Estimated(x) Probability of Cancer(as%) 0-2.5 (*) Approx. 1 2.6-4.0(1) 0-27(2) 24(3) 4.1-10(4) 0-10 56 11-15 28 16-20 20 21-25 16 >or =26 8 >10(+) N/A >50 References:(1)Rashida knutson et al.:Urology 60: 469-474 (2002) (2)Mihaela et al.:J.Urol 168: 922-925 (2002) Free PSA(%) Sensitivity(%) Specificity(%) < or = 25 85 19 < or = 30 93 9 (3)Mihaela et al.:GEOFFREY 277: 4028-3550 (1996) (4)Catalona et al.:GEOFFREY 279: 5311-6294 (1997) (x)These estimates vary with age, ethnicity, family history and LASHAWN results. (*)The diagnostic usefulness of % Free PSA has not been established in patients with total PSA below 2.6 ng/mL (+)In men with PSA above 10 ng/mL, prostate cancer risk is determined by total PSA alone. The Total PSA value from this assay system is standardized against the equimolar PSA standard. The test result will be approximately 20% higher when compared to the WHO-standardized Total PSA (Siemens assay). Comparison of serial PSA results should be interpreted with this fact in mind. PSA was performed using the Rob Annamaria Immunoassay method. Values obtained from different assay methods cannot be used interchangeably. PSA levels, regardless of value, should not be interpreted as absolute evidence of the presence or absence of disease. THIS TEST WAS PERFORMED AT: [facility] [address] [address] ZAN ZAMBRANO MD Free Prostate Spec Ag 0.7 SLIDE REVIEW Reviewed date:08/28/2024 12:42:37 PM Interpretation: Performing Lab:[facility], [address] [place] [phone] Notes/Report: SLIDE REVIEW VERIFIED PSA Free and Total Reviewed date:10/09/2024 07:51:53 AM Interpretation: Performing Lab:[facility], [address] [place] [phone] Notes/Report: Prostate Specific Ag Total 4.2 < OR = 4.0 ng/mL Percent Free Prostate Spec Ag 14 >25 % (calc) PSA(ng/mL) Free PSA(%) Estimated(x) Probability of Cancer(as%) 0-2.5 (*) Approx. 1 2.6-4.0(1) 0-27(2) 24(3) 4.1-10(4) 0-10 56 11-15 28 16-20 20 21-25 16 >or =26 8 >10(+) N/A >50 References:(1)Rashida knutson et al.:Urology 60: 469-474 (2002) (2)Mihaela et al.:J.Urol 168: 922-925 (2002) Free PSA(%) Sensitivity(%) Specificity(%) < or = 25 85 19 < or = 30 93 9 (3)Catalona et al.:GEOFFREY 277: 7400-4920 (1996) (4)Catalona et al.:GEOFFREY 279: 9171-7897 (1997) (x)These estimates vary with age, ethnicity, family history and LASHAWN results. (*)The diagnostic usefulness of % Free PSA has not been established in patients with total PSA below 2.6 ng/mL (+)In men with PSA above 10 ng/mL, prostate cancer risk is determined by total PSA alone. The Total PSA value from this assay system is standardized against the equimolar PSA standard. The test result will be approximately 20% higher when compared to the WHO-standardized Total PSA (Siemens assay). Comparison of serial PSA results should be interpreted with this fact in mind. PSA was performed using the Rob Annamaria Immunoassay method. Values obtained from different assay methods cannot be used interchangeably. PSA levels, regardless of value, should not be interpreted as absolute evidence of the presence or absence of disease. THIS TEST WAS PERFORMED AT: [facility] [address] [place] [phone] ZAN ZAMBRANO MD Free Prostate Spec Ag 0.6 Hold Green Gel Reviewed date:10/06/2024 12:26:14 PM Interpretation: Performing Lab:[address] [phone] Notes/Report: Hold Green Gel See Note Specimen held untested for 24 hours; Call to request Chemistry testing. PSA Free and Total Reviewed date:11/12/2024 02:21:23 PM Interpretation: Performing Lab:[facility], [address] [place] [phone] Notes/Report: Prostate Specific Ag Total 3.3 < OR = 4.0 ng/mL Percent Free Prostate Spec Ag 15 >25 % (calc) PSA(ng/mL) Free PSA(%) Estimated(x) Probability of Cancer(as%) 0-2.5 (*) Approx. 1 2.6-4.0(1) 0-27(2) 24(3) 4.1-10(4) 0-10 56 11-15 28 16-20 20 21-25 16 >or =26 8 >10(+) N/A >50 References:(1)Rashida knutson et al.:Urology 60: 469-474 (2001) (2)Mihaela et al.:J.Urol 168: 922-925 (2001) Free PSA(%) Sensitivity(%) Specificity(%) < or = 25 85 19 < or = 30 93 9 (3)Catalona et al.:GEOFFREY 277: 9143-4619 (1996) (4)Catalona et al.:GEOFFREY 279: 0126-0882 (1997) (x)These estimates vary with age, ethnicity, family history and LASHAWN results. (*)The diagnostic usefulness of % Free PSA has not been established in patients with total PSA below 2.6 ng/mL (+)In men with PSA above 10 ng/mL, prostate cancer risk is determined by total PSA alone. The Total PSA value from this assay system is standardized against the equimolar PSA standard. The test result will be approximately 20% higher when compared to the WHO-standardized Total PSA (Siemens assay). Comparison of serial PSA results should be interpreted with this fact in mind. PSA was performed using the Rob Annamaria Immunoassay method. Values obtained from different assay methods cannot be used interchangeably. PSA levels, regardless of value, should not be interpreted as absolute evidence of the presence or absence of disease. THIS TEST WAS PERFORMED AT: [facility] [address] [place] [phone] ZAN ZAMBRANO MD Free Prostate Spec Ag 0.5 Reason For Referral No Information Medications Medication SIG (Take, Route, Frequency, Duration) Notes Start Date End Date Status Xarelto 20 MG TAKE 1 TABLET DAILY WITH FOOD ORALLY ONCE A DAY 90 DAYS Active Tiadylt ER 360 MG TAKE 1 CAPSULE BY [facility] EVERY DAY for 90 Active Albuterol Sulfate HFA 108 (90 Base) MCG/ACT INHALE 2 PUFFS EVERY 4 HOURS NEEDED (30 DAY SUPPLY) for 30 Active Centrum Silver - as directed Orally Active Metoprolol Tartrate 100 MG 1 tablet with food Orally Twice a day for 90 days 09/12/2024 Active Hyoscyamine Sulfate ER 0.375 mg TAKE 1 TABLET DAILY Orally once a day for 90 days Active Triamcinolone Acetonide 0.1 % 1 application Externally Two times a Week for 14 days 02/23/2022 Active Pravastatin Sodium 20 MG 1 tablet Orally Once a day 12/04/2019 Active Digoxin 125 MCG TAKE 1 TABLET ORALLY ONCE EVERY OTHER DAY 90 DAYS Active Immunizations Vaccine Route Administration Date Status [...] [facility] SARS-COV-2 Pfizer Unknown 12/18/2023 Administered [facility] Influenza High Dose IM Intramuscular 01/08/2025 Administer ed Fluarix Quadrivalent Unknown 08/05/2018 Refused Social History [...] Problem Status W/U Status Risk Notes Problem 834782777 Reflux esophagit is (K21.00) Active confirmed Problem 24546579 Statin intoleran ce (Z78.9) Active confirmed Problem 514048481 Paroxysmal atria l fibrillation (I48.0) Active confirmed Problem 72949277 Hypercalcemia (E83.52) Active confirme d Problem Ankylosing spondylitis (9118623) Ankylosing spondylitis of thoracic region (M45.4) Active confirmed Problem 845787790 Mild intermitten t asthma without complication (J45.20) Active confirmed Problem 1646883 Prediabetes (R73.09) Active confirmed Problem 45118106 Intrinsic eczema (L20.84) Active confirmed Problem 90701646 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 Problem 665112959 Pure hypercholesterolemia (E78.00) Active confirmed Vital Signs Blood pressure diastolic 58 mm Hg 10/13/2024 Height 70.25 in 10/13/2024 Blood pressure systolic 112 mm Hg 10/13/2024 Weight 191 lbs 10/13/2024 BMI 27.21 kg/m2 10/13/2024 Encounters Encounter Location Date Provider Diagnosis Herman Figueroa MD [address] [place] [id number] 08/28/2024 Herman Figueroa Blood tests for rout ine general physical examination Z00.00 ; Prediabetes R73.09 and Pure hypercholesterolemia E78.00 Herman Figueroa MD [address] [place] [id number] 10/06/2024 Herman Figueroa 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/o ang pctrs I25.10 Herman Figueroa MD [address] [place] [address] [id number] 11/11/2024 Herman Figueroa Rising PSA level R97 .20 Herman Figueroa MD [address] [place] [address] [id number] 01/08/2025 Herman Figueroa Elevated PSA R97.20 ; Encounter for administration of vaccine Z23 and Paroxysmal atrial fibrillation I48.0 Herman Figueroa MD [address] [place] [address] [id number] 03/06/2024 Herman Figueroa Paroxysmal atrial fibrillation I48.0 ; 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/o ang pctrs I25.10 ; Mild intermittent asthma without complication J45.20 and Mild eczema L30.9 Herman Figueroa MD [address] [place] [address] [id number] 03/27/2024 Herman Figueroa Ankylosing spondylit is of thoracic region M45.4 Herman Figueroa MD [address] [place] [id number] 04/17/2024 Herman Figueroa Ankylosing spondylit is of thoracic region M45.4 and Mild intermittent asthma without complication J45.20 Herman Figueroa MD [address] [place] [address] [id number] 06/12/2024 Herman Figueroa Paroxysmal atrial fibrillation I48.0 and Cerumen impaction H61.20 Herman Figueroa MD [address] [place] [address] [id number] 09/04/2024 Herman Figueroa 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/o ang pctrs I25.10 ; Annual physical exam Z00.00 ; Paroxysmal atrial fibrillation I48.0 ; Elevated PSA R97.20 ; Hypercalcemia E83.52 ; Pure hypercholesterolemia E78.00 ; Mild intermittent asthma without complication J45.20 and Reflux esophagitis K21.00 Herman Figueroa MD [address] [place] [address] [id number] 10/13/2024 Herman Figueroa Rising PSA level R97 .20 and Mild intermittent asthma without complication J45.20 Herman Figueroa MD [address] [place] [address] [id number] 01/24/2024 Herman Figueroa Pure hypercholestero lemia E78.00 Herman Figueroa MD [address] [place] [address] [id number] 01/31/2024 Herman Figueroa Mild intermittent as thma without complication J45.20 Herman Figueroa MD [address] [place] [address] [id number] 03/11/2024 Herman Figueroa Ankylosing spondylit is of thoracic region M45.4 Herman Figueroa MD [address] [place] [address] [id number] 07/08/2024 Herman Figueroa Paroxysmal atrial fibrillation I48.0 Herman Figueroa MD [address] [place] [address] [id number] 07/17/2024 Herman Figueroa MD [address] [place] [address] [id number] 09/09/2024 Herman Figueroa 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/o ang pctrs I25.10 Herman Figueroa MD [address] [place] [address] [id number] 09/12/2024 Herman Figueroa MD [address] [place] [address] [id number] 09/16/2024 Herman Figueroa Assessments Encounter Date Diagnosis (ICD Code) Assessment Notes Treatment Notes Treatment Clinical Notes Section Notes 08/28/2024 [address] tests [address] ine general physical examination (ICD-10 - Z00.00) 10/06/2024 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/o ang pctrs (ICD-10 - I25.10) 11/11/2024 Rising PSA level (ICD-10 - R97.20) 01/08/2025 Elevated PSA (ICD-10 - R97.20) 01/08/2025 Encounter for administration of vaccine (ICD-10 - Z23) 03/06/2024 Paroxysmal atrial fibrillation (ICD-10 - I48.0) rate a little high at 90 to 100 03/06/2024 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 will repeat as the numbers are fluctuating. 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 will use inhaler more often. chest xray was negative for lung disease 09/04/2024 Paroxysmal atrial fibrillation (ICD-10 - I48.0) doing well, will continue current regiment 10/13/2024 Mild intermittent asthma without complication (ICD-10 - J45.20) with the hot weather that has been upon us he is using his inhaler about 3 times a day with good relief 03/11/2024 Ankylosing spondylit is of thoracic region (ICD-10 - M45.4) 08/28/2024 Pure hypercholesterolemia (ICD-10 - E78.00) 03/06/2024 Mild eczema (ICD-10 - L30.9) 09/04/2024 Elevated PSA (ICD-10 - R97.20) will continue to monitor 09/04/2024 Hypercalcemia (ICD-1 0 - E83.52) 09/04/2024 Pure hypercholesterolemia (ICD-10 - E78.00) 09/04/2024 Mild intermittent asthma without complication (ICD-10 - J45.20) 09/04/2024 Reflux esophagitis (ICD-10 - K21.00) Plan Of Treatment Pending Test Test Name Order Date Electrocardiogram (EKG) 07/26/2017 Electrocardiogram (EKG) 03/02/2011 Electrocardiogram (EKG) 02/06/2019 Electrocardiogram (EKG) 05/15/2013 Electrocardiogram (EKG) 01/11/2017 XR CHEST 2 VIEW PA & LAT 03/06/2024 XR CHEST 2 VIEW PA & LAT 05/20/2020 XR GI SMALL BOWEL SERIES 07/26/2017 PSA,Total (Free>4and<10) 01/08/2025 Next Appt Details Provider Name:Herman Zaidi ier, 02/24/2025 07:30:00 AM, [address] [place] [address], [address], [phone], Provider Name:Herman Zaidi ier, 03/03/2025 01:45:00 PM, [address] [place] [address], [address], [phone], Provider Name:Herman Zaidi ier, 09/01/2025 07:15:00 AM, [address] [place] [address], [address], [phone], Provider Name:Herman Zaidi ier, 09/08/2025 02:30:00 PM, [address] [place] [address], [address], [phone], Insurance Providers Payer Name Payer Address Payer Phone Subscriber Number Group Number Insured Name Patient Relationship to Insured Coverage Start Date Coverage End Date [employer]AN [facility] [address] [place] [phone] [id number] Agusto Hilton Self - patient is the insured Medical (General) History Medical History History ICD Code colonoscopy 08/22/12 - repeat 10 years Toxoplasmosis colonoscopy done 2020, due 5 yrs 2 polyp s
--- OUTSIDE RECORDS SUMMARY | 2025-01-08 19:36 | XMS_ITS | Patient Health Record ---
Author Organization [facility] Address [address] [place] [address] Care Team Providers Care Biztalk Architect Name Role Phone Herman Figueroa MD Primary Care Provider Jose Gonzalez Unavailable [phone] Allergies Allergen (clinical drug ingredient) Drug/Non Drug [...] Problem Status W/U Status Risk Notes Problem 662548959 Irritable bowel syndrome with diarrhea (K58.0) Active confirmed Problem 50793319 Heme + stool (R19.5) Active confirmed Problem Diverticulosis of colon (147814133) Diverticulosis of colon (K57.30) Active confirmed Plan Of Treatment Pending Test Test Name Order Date CELIAC PANEL #10 08/24/2020 Pathology 10/01/2020 Future Test Test Name Order Date COLONOSCOPY 07/04/2012 COLONOSCOPY 08/24/2020 Insurance Providers Payer Name Payer Address Payer Phone Subscriber Number Group Number Insured Name Patient Relationship to Insured Coverage Start Date Coverage End Date [facility] [address] [place] [id number] GINA RODRIGUEZ Self - patient is the insured Medical (General) History Medical History History ICD Code Hiatal hernia-occasional GERD-better wit h change of diet Cardiac stent placement x 1 in 2008-no M I-fine since Allergies-? asthma Denies [place],DM,CVA,renal disease Hyperlipidemia Afib Negative screening colonoscopy in 08/2012 IBS-longstanding > 20 years Surgical History Surgery Date(Month/Year) Cholecystecomy in 2001 Cyst removed from back
--- OUTSIDE RECORDS SUMMARY | 2025-01-08 19:36 | XMS_ITS | Encounter Summary ---
Author Organization [facility] Address [address] [facility] [address] [place] [address] Phone Care Team Providers Care Rail Car Maintenance Mechanic Name Role Phone Herman Figueroa MD Primary Care Provider Encounter Details Date Type Department Care Team (Late st Contact Info) Description 01/11/2021 Procedure Pass Echo Lab [address] [place] [address] Social History Tobacco Use Types Packs/Day Years [...] Description 06/23/2025 2:30 PM EDT Office Visit [facility] [address] [place] [address] Dr [address] Floor, [address] [place] [address] Bridgette Harrison DNP [address] [facility], [facility] [address] [place] [address] documented as of this encounter Visit Diagnoses Not on filedocumented in this encounter Care Teams Rail Car Maintenance Mechanic Relationship Specialty Start Date End Date Herman Figueroa MD [address] [place] [address] [place] [address] PCP - General 02/01/17 documented as of this encounter Additional Source Comments The information contained in this document represents components of the legal health record. It is not the complete legal health record.[facility]
== END 2025-01-08 15:30 | disposition home or self-care (01) ==
LOC: HO.LNP 15:29
PROVIDERS: Visit Provider Internal Medicine
DX: Z12.5 Encounter for screening for malignant neoplasm of prostate (principal); R97.20 Elevated prostate specific antigen [PSA]
CPT/HCPCS: 84153

== ENCOUNTER 2025-02-26 10:36 | Outpatient (REF) | payer MEDICARE, SELFPAY ==
--- OUTSIDE RECORDS SUMMARY | 2024-09-04 09:30 | XMS_ITS ---
Author Organization Herman Figueroa MD Address [address] [place] [phone] Care Team Providers Care Occupational Health Specialist Name Role Phone Herman Figueroa Primary Care Provider Allergies Allergen (clinical drug ingredient) Drug/Non Drug Allergy documented on EMR Reaction Allergy Type Onset Date Status atorvastatin Lipitor myalgia Drug Allergy Acti ve REASON FOR VISIT ANNUAL EXAM, CBACK PSA, Patient is having trouble filling his Metoprolol 25mg and 50mg tabs can youchange Medications Medication SIG (Take, Route, Frequency, Duration) Notes Start Date End Date Status Xarelto 20 MG TAKE 1 TABLET DAILY WITH FOOD ORALLY ONCE A DAY 90 DAYS Active Pravastatin Sodium 20 MG 1 tablet Orally Once a day 12/04/2019 Active Albuterol Sulfate HFA 108 (90 Base) MCG/ACT USE 2 INHALATIONS EVERY 4 HOURS IF NEEDED Inhalation every 4 hrs Active Digoxin 125 MCG TAKE 1 TABLET ORALLY ONCE EVERY OTHER DAY 90 DAYS Active Metoprolol Succinate ER 25 MG TAKE 1 TABLET BY MOUTH EVERY DAY Active Metoprolol Succinate ER 100 MG TAKE 1 TABLET BY MOUTH TWICE A DAY Orally Once a day for 90 days Active Triamcinolone Acetonide 0.1 % 1 application Externally Two times a Week for 14 days 02/23/2022 Active Centrum Silver - as directed Orally Active Tiadylt ER 360 MG TAKE 1 CAPSULE BY [facility] EVERY DAY for 90 Active Hyoscyamine Sulfate ER 0.375 mg TAKE 1 TABLET DAILY Orally once a day for 90 days Active Social History Tobacco Use: Social History Observation [...] Never (0 point) Points 1 Interpretation Negative Vital Signs Blood pressure systolic 112 mm Hg 09/05/19 25 Blood pressure diastolic 54 mm Hg 025 Height 70.25 in 09/04/2024 Weight 192 lbs 09/04/2024 BMI 27.35 kg/m2 09/04/2024 Encounters Encounter Location Date Provider Diagnosis Herman Figueroa MD [address] [place] [address] [place] [phone] 09/04/2024 Herman Figueroa 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 ; Annual physical exam Z00.00 ; Paroxysmal atrial fibrillation I48.0 ; Elevated PSA R97.20 ; Hypercalcemia E83.52 ; Pure hypercholesterolemia E78.00 ; Mild intermittent asthma without complication J45.20 and Reflux esophagitis K21.00 Assessments Encounter Date Diagnosis (ICD Code) Assessment Notes Treatment Notes Treatment Clinical Notes Section Notes 09/04/2024 Athscl heart disease of [place] coronary artery w/o ang pctrs (ICD-10 - I25.10) stable, will continue current regiment 09/04/2024 Annual physical exam (ICD-10 - Z00.00) labs reviewed and discussed with patient 09/04/2024 Paroxysmal atrial fibrillation (ICD-10 - I48.0) doing well, will continue current regiment 09/04/2024 Elevated PSA (ICD-10 - R97.20) will continue to monitor 09/04/2024 Hypercalcemia (ICD-1 0 - E83.52) 09/04/2024 Pure hypercholesterolemia (ICD-10 - E78.00) 09/04/2024 Mild intermittent as thma without complication (ICD-10 - J45.20) 09/04/2024 Reflux esophagitis (ICD-10 - K21.00) Plan Of Treatment Medication Medication Name Sig Start Date Stop Date Notes Xarelto 20 MG TAKE 1 TABLET DAILY WITH FOOD ORALLY ONCE A DAY 90 DAYS Pravastatin Sodium 20 MG 1 tablet Orally Once a day 2019 Albuterol Sulfate HFA 108 (9 0 Base) MCG/ACT USE 2 INHALATIONS EVERY 4 HOURS IF NEEDED Inhalation every 4 hrs Digoxin 125 MCG TAKE 1 TABLET ORALLY ONCE EVERY OTHER DAY 90 DAYS Metoprolol Succinate ER 25 MG TAKE 1 TAB LET BY MOUTH EVERY DAY Metoprolol Succinate ER 100 MG TAKE 1 TABLET BY MOUTH TWICE A DAY Orally Once a day for 90 days Treatment Notes Assessment Notes Athscl heart disease of [place] coronary artery w/o ang pctrs stable, will continue current regiment Annual physical exam labs reviewed and d iscussed with patient Paroxysmal atrial fibrillation doing wel l, will continue current regiment Elevated PSA will continue to mon itor Next Appt Details Follow Up: 6 Weeks, Reason: Provider Name:Herman gardner, 03/03/2025 01:45:00 PM, [address] [place] [address], [address], [phone], Provider Name:Herman gardner, 09/01/2025 07:15:00 AM, [address] [place] [address], [place] [address], [place], [place], [phone], Provider Name:Herman gardner, 09/08/2025 02:30:00 PM, [address] [place] [address], [place] [address], [place], [place], [phone], Progress Notes * Agusto RODRIGUEZ RDOB:1950 ( 74 yo M)Acc No.[id number]:09/04/2024 Progress Notes Patient: Agusto LEVINE Provider: Yessi Figueroa MD :1950 A ge:74 Y S ex:Male Date:09/04/2024 Address:[address] [place], [place] [phone] Subjective: * Chief Complaints: * A NNUAL EXAMCBACK PSAPatient is having trouble filling his Metoprolol 25mg and 50mg tabs can you change * HPI: D epression Screening: PHQ-9 L ittle interest or pleasure in doing things N ot at all, F eeling down, depressed, or hopeless N ot at all, T rouble falling or staying asleep, or sleeping too much N ot at all, F eeling tired or having little energy N ot at all, P oor appetite or overeating N ot at all, F eeling bad about yourself or that you are a failure, or have let yourself or your family down N ot at all, T rouble concentrating on things, such as reading the newspaper or watching television N ot at all, M oving or speaking so slowly that other people could have noticed; or the opposite, being so fidgety or restless that you have been moving around a lot more than usual N ot at all, T houghts that you would be better off or of hurting yourself in some way N ot at all, T otal Score 0 . I nterpretation and Intervention D epression Screening Findings N egative, F ollow-Up for Depression : review of PHQ-9 found negative result, no follow-up needed. C ommunication Needs: Communication Needs D oes the patient have a hearing impairment N o, D oes the patient have a vision impairment? Y es, I f yes, what is the vision impairment? G lasses, D oes the patient have a cognition impairment? N o. F all Risk: History H ave you had any falls with injury in the past year? N o, H ave you had two or more falls in the past year? N o. S CHAZ Questions: SDOH Questions I n the past year have you been worried about losing housing? N o, I n the past year have you or any family members you live with been unable to get any of the following when it was really needed? Check all that apply: N one. * ROS: G eneral/Constitutional: Change in appetite d enies. C hills d enies. F ever d enies. O phthalmologic: Blurred vision d enies. D ischarge d enies. P ain d enies. E NT: Decreased hearing d enies. S ore throat d enies.?Swollen glands d enies. E ndocrine: Cold intolerance d enies. E xcessive thirst d enies. H eat intolerance d enies. W eight loss d enies. R espiratory: Cough d enies. S hortness of breath at rest d enies. S hortness of breath with exertion d enies. W heezing d enies. C ardiovascular: Chest pain at rest d enies. C hest pain with exertion?denies. I rregular heartbeat d enies. S hortness of breath d enies. ? G astrointestinal: Abdominal pain d enies. C hange in bowel habits d enies. D iarrhea d enies. N ausea d enies. R ectal bleeding d enies. V omiting d enies . G enitourinary: Blood in urine d enies. D ifficulty urinating d enies. F requent urination d enies. M usculoskeletal: Painful joints d enies. W eakness d enies. ? S kin: Dry skin d enies. I tching d enies. D enies?Mole(s), changes in moles, new moles or any lesions of concern. D enies P hotosensitivity. R milagros d enies. N eurologic: Dizziness d enies. F ainting d enies. H eadache?denies. * Medical History: * Surgical History: * Hospitalization/Major Diagno stic Procedure: * Family History: F ather: 67 yrs. M other: 71 yrs. 1 brother(s) , 1 sister(s) . .? Father-AL Mother-CVA, Denies mental health/substance abuse family history, No pertinent family medical history, Denies mental health/substance abuse family history, Denies mental health/substance abuse family history. * Social History: T obacco Use: T obacco Use/Smoking P atient is a n onsmoker, Sincere dditional Findings: Tobacco Non-User C urrent non-smoker, currently using no form of tobacco. D rugs/Alcohol: A lcohol Screen D id you have a drink containing alcohol in the past year? Y es, H ow often did you have a drink containing alcohol in the past year? M onthly or less (1 point), H ow many drinks did you have on a typical day when you were drinking in the past year? 1 or 2 drinks (0 point), H ow often did you have 6 or more drinks on one occasion in the past year? N ever (0 point), P oints 1 , I nterpretation N egative. M iscellaneous: C affeine: yes, frequency:, 2-3 cups per day. Children: no. Community involvements: no. Exercise: no. Housing: renting. Living with: alone. Marital status: single. Occupation: works full-time. Pets: cat. Travel outside of the [place]: no. * Medications: T akingCentrum Silver - Tablet as directed Orally Tiadylt ER 360 MG Capsule Extended Release 24 Hour TAKE 1 CAPSULE BY MOUTH EVERY DAY Hyoscyamine Sulfate ER 0.375 mg Tablet Extended Release 12 Hour TAKE 1 TABLET DAILY Orally once a day Pravastatin Sodium 20 MG Tablet 1 tablet Orally Once a day Albuterol Sulfate HFA 108 (90 Base) MCG/ACT Aerosol Solution USE 2 INHALATIONS EVERY 4 HOURS IF NEEDED Inhalation every 4 hrs Triamcinolone Acetonide 0.1 % Cream 1 application Externally Two times a Week Digoxin 125 MCG Tablet TAKE 1 TABLET ORALLY ONCE EVERY OTHER DAY 90 DAYS Metoprolol Succinate ER 25 MG Tablet Extended Release 24 Hour TAKE 1 TABLET BY MOUTH EVERY DAY Xarelto 20 MG Tablet TAKE 1 TABLET DAILY WITH FOOD ORALLY ONCE A DAY 90 DAYS Taking Centrum Silver - Tablet as directed Orally Taking Tiadylt ER 360 MG Capsule Extended Release 24 Hour TAKE 1 CAPSULE BY MOUTH EVERY DAY Taking Hyoscyamine Sulfate ER 0.375 mg Tablet Extended Release 12 Hour TAKE 1 TABLET DAILY Orally once a day Taking Pravastatin Sodium 20 MG Tablet 1 tablet Orally Once a day Taking Albuterol Sulfate HFA 108 (90 Base) MCG/ACT Aerosol Solution USE 2 INHALATIONS EVERY 4 HOURS IF NEEDED Inhalation every 4 hrs Taking Triamcinolone Acetonide 0.1 % Cream 1 application Externally Two times a Week Taking Digoxin 125 MCG Tablet TAKE 1 TABLET ORALLY ONCE EVERY OTHER DAY 90 DAYS Taking Metoprolol Succinate ER 25 MG Tablet Extended Release 24 Hour TAKE 1 TABLET BY MOUTH EVERY DAY Taking Xarelto 20 MG Tablet TAKE 1 TABLET DAILY WITH FOOD ORALLY ONCE A DAY 90 DAYS UnknownMetoprolol Succinate ER 50 MG Tablet Extended Release 24 Hour TAKE 1 TABLET BY MOUTH TWICE A DAY Unknown Metoprolol Succinate ER 50 MG Tablet Extended Release 24 Hour TAKE 1 TABLET BY MOUTH TWICE A DAY * Allergies: L ipitor: myalgiayes[Allergies Verified] Objective: * Vitals: H t: 70.25, Wt: 192, BMI:27.35, BP:112/54, Wt-k.09. * P ast Orders: L ab:Microalbumin, Random (Order Date - 08/28/2024) (Collection Date & Time - 08/28/2024 08:00 AM) Value Reference Range Creatinine Urine 71.78 - mg/dL Microalbumin Urine 9.0 - mg/L Microalbum Creatinine Ratio Ur 12.5 <30 - ug/ mg cr L ab:Hemoglobin A1c (Order Date - 08/28/2024) (Collection Date & Time - 08/28/2024 08:00 AM) Value Reference Range Hemoglobin A1c % 6.2 H <6.0 - % Estimated Average Glucose 131 - mg/dL L ab:UA ClnCatch+Micro w/rflx Cult (Order Date - 08/28/2024) (Collection Date & Time - 08/28/2024 08:00 AM) Value Reference Range Color Urine Yellow - Appearance Urine Clear - PH 7.5 5.0-9.0 - Glucose Urine UA Negative Negative - mg/dL Urine Blood Negative Negative - Specific [place] - Urine 1.010 1.005-1.025 - Urine Protein Negative Neg-Trace - mg/dL Urine Ketones Negative Negative - mg/dL Nitrite Urine Negative Negative - Leukocyte Esterase Urine Negative Negative - RBC Urine 0-2 0-2 - /HPF WBC Urine 0-5 0-5 - /HPF Squamous Epithelial Cell Urine 0-2 0-2 - /HP F Bacteria Urine None Seen None Seen - Hyaline Casts Urine 0-2 0-2 - /LPF L ab:Complete Blood Count Auto Diff (Order Date - 08/28/2024) (Collection Date & Time - 08/28/2024 08:00 AM) Value Reference Range White Blood Count 7.6 4.8-10.8 - X10*3/uL Red Blood Count 5.43 4.60-5.80 - X10*6/uL Hemoglobin 17.5 14.0-18.0 - g/dl Hematocrit 51.0 42.0-52.0 - % Mean Corpuscular Volume 93.9 80.0-98.0 - fL Mean Corpuscular Hemoglobin 32.2 27.0-33.0 - pg Mean Corpuscular HGB Conc 34.3 31.0-36.0 - g/ dl Red Cell Distribution Width 13.5 11.0-16.0 - % Platelet Count 153 L 160-400 - X10*3/uL Mean Platelet Volume 12.8 H 9.4-12.4 - fL Neutrophils Percent Auto 59.8 45-73 - % Imm Gran Pct Auto 0.5 H 0.0-0.4 - % Lymphocytes Percent Auto 24.3 20-40 - % Monocytes Percent Auto 8.3 2-11 - % Eosinophils Percent Auto 6.3 H 0-4 - % Basophils Percent Auto 0.8 0-2 - % NRBC Pct Auto 0.0 0.0-0.2 - /100WBC Neutrophils Absolute Auto 4.5 2.0-8.3 - x10* 3/uL Imm Gran Abs Auto 0.04 H 0.00-0.03 - X10*3/uL Lymphocytes Absolute Auto 1.9 1.2-4.9 - X10* 3/uL Monocytes Absolute Auto 0.6 0.1-1.2 - X10*3/ uL Eosinophils Absolute Auto 0.5 H 0.0-0.4 - X10* 3/uL Basophils Absolute Auto 0.1 0.0-0.2 - X10*3/ uL NRBC Abs Auto 0.000 0.0-0.012 - X10*3/uL L ab:Comprehensive [place]. Panel Fast (Order Date - 08/28/2024) (Collection Date & Time - 08/28/2024 08:00 AM) Value Reference Range Sodium 143 135-145 - mmol/L Bilirubin Total 0.8 0.0-1.0 - mg/dL Aspartate Amino Transferase 33 5-37 - U/L Alanine Aminotransferase 26 0-40 - U/L Total Protein 6.6 6.5-8.0 - g/dL Albumin Level 4.0 3.5-5.0 - g/dL Alkaline Phosphatase 70 39-117 - U/L Potassium 4.4 3.3-5.1 - mmol/L Chloride 107 96-108 - mmol/L Carbon Dioxide 29 22-29 - mmol/L Anion Gap 11 L 12-20 - Blood Urea Nitrogen 14 9-16 - mg/dL Creatinine 1.07 0.5-1.4 - mg/dL Estimated Glomerular Filt Rate > 60 - Glucose Fasting 145 H 60-99 - mg/dL Calcium 10.5 H 8.4-10.2 - mg/dL L ab:Lipid Panel (Order Date - 08/28/2024) (Collection Date & Time - 08/28/2024 08:00 AM) Value Reference Range Triglycerides 82 <150 - mg/dL Cholesterol 163 <200 - mg/dL LDL Cholesterol Calculated 95 <100 - mg/dL HDL Cholesterol 52 >40 - mg/dL * Examination: G eneral Examination: GENERAL APPEARANCE: w ell developed, well nourished, in no acute distress. HEAD: n ormocephalic, atraumatic. EYES: p upils equal, round, reactive to light and accommodation, sclera non-icteric. EARS: n ormal. ORAL CAVITY: m ucosa moist. THROAT: c lear. NECK/THYROID: n jose guadalupe supple, full range of motion, no cervical lymphadenopathy, no bruits. SKIN: w arm and dry, no suspicious lesions. HEART: r egular rate and rhythm, S1, S2 normal, no murmurs.? LUNGS: c lear to auscultation bilaterally. ABDOMEN: s oft, nontender, nondistended, bowel sounds present, normal, no organomegaly , no masses palpable. RECTAL EXAM: n ormal tone, no external hemorrhoids, no masses palpable, prostate normal, stool guaiac negative. MALE GENITOURINARY: c ircumcised, no penile lesions or discharge, testes descended bilaterally. EXTREMITIES: n o clubbing, cyanosis, or edema. NEUROLOGIC: n onfocal, motor strength normal upper and lower extremities, sensory exam intact. Assessment: * Assessment: 1. A nnual physical exam - Z00.00 (Primary) 2 . 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 P aroxysmal atrial fibrillation - I48.0 4 . E levated PSA - R97.20 5 . H ypercalcemia - E83.52 6 . P ure hypercholesterolemia - E78.00 7 . M ild intermittent asthma without complication - J45.20 8 . R eflux esophagitis - K21.00 Plan: * Treatment: 2. 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 L AB: PSA,Total (Free>4and<10) (Ordered for 10/02/2024) Notes: stable, will continue current regiment 3. P aroxysmal atrial fibrillation Continue Metoprolol Succinate ER Tablet Extended Release 24 Hour, 25 MG, TAKE 1 TABLET BY MOUTH EVERY DAY; C ontinue Xarelto Tablet, 20 MG, TAKE 1 TABLET DAILY WITH FOOD ORALLY ONCE A DAY 90 DAYS. Notes: doing well, will continue current regiment 4. E levated PSA Notes: will continue to monitor 5. P ure hypercholesterolemia Continue Pravastatin Sodium Tablet, 20 MG, 1 tablet, Orally, Once a day. 6. M ild intermittent asthma without complication Continue Albuterol Sulfate HFA Aerosol Solution, 108 (90 Base) MCG/ACT, USE 2 INHALATIONS EVERY 4 HOURS IF NEEDED, Inhalation, every 4 hrs. * Procedure Codes: * Follow Up: 6 Weeks * * Sign off status: Completed true * Provider: Yessi Figueroa MD Date: 0 09/04/2024 Generated for Hamilton walker/Edgardo/Jesus on: 04/28/2024 01:01 PM EST History and Physical Notes * HPI (History of Present Illness) Category Sub-Category Detail Notes Category Not es Depression Screening PHQ-9 Little inte rest or pleasure in doing things: Not at all Feeling down, depressed, or hopeless: No t at all Trouble falling or staying asleep, or sl eeping too much: Not at all Feeling tired or having little energy: N ot at all Poor appetite or overeating: Not at all Feeling bad about yourself o r that you are a failure, or have let yourself or your family down: Not at all Trouble concentrating on thi ngs, such as reading the newspaper or watching television: Not at all Moving or speaking so slowly that other people could have noticed; or the opposite, being so fidgety or restless that you have been moving around a lot more than usual: Not at all Thoughts that you would be b rao off or of hurting yourself in some way: Not at all Total Score: 0 Interpretation and Intervention Depression Pedro handy Findings: Negative Follow-Up for Depression: : review of PH Q-9 found negative result, no follow-up needed SDOH Questions SDOH Questions In the past year have you been worried about losing housing?: No In the past year have you or any family members you live with been unable to get any of the following when it was really needed? Check all that apply:: None Fall Risk History Have you had any falls with injury i n the past year?: No Have you had two or more falls in the st year?: No Communication Needs Communication Needs Does the patient have a hearing impairment: No Does the patient have a vision impairmen t?: Yes If yes, what is the vision impairment?: Glasses Does the patient have a cognition impair ment?: No Examination Category Sub-Category Detail Notes Category Not es General Examination GENERAL APPEARANCE: well dev eloped, well nourished, in no acute distress HEAD: normocephalic, atrau matic EYES: pupils equal, round, reactive to light and accommodation, sclera non-icteric EARS: normal THROAT: clear NECK/THYROID: neck supple, full ra nge of motion, no cervical lymphadenopathy, no bruits HEART: regular rate and rhy thm, S1, S2 normal, no murmurs LUNGS: clear to auscultatio n bilaterally ABDOMEN: soft, nontender, non distended, bowel sounds present, normal, no organomegaly , no masses palpable NEUROLOGIC: nonfocal, motor stre ngth normal upper and lower extremities, sensory exam intact SKIN: warm and dry, no zack picious lesions EXTREMITIES: no clubbing, cyanosi s, or edema MALE GENITOURINARY: circumcised, no peni le lesions or discharge, testes descended bilaterally RECTAL EXAM: normal tone, no exte rnal hemorrhoids, no masses palpable, prostate normal, stool guaiac negative ORAL CAVITY: mucosa moist
--- OUTSIDE RECORDS SUMMARY | 2024-09-09 06:11 | XMS_ITS ---
Author Organization Herman Figueroa MD Address [address] [place] [phone] Care Team Providers Care Molten Iron Pourer Name Role Phone Carolina Herman Primary Care Provider [phone] REASON FOR VISIT med issue Medications Medication SIG (Take, Route, Frequency, Duration) Notes Start Date End Date Status Metoprolol Succinate ER 100 MG TAKE 1 TABLET BY MOUTH TWICE A DAY Orally for 90 days Active Metoprolol Succinate ER 100 MG 1 tablet Orally twice a day for 90 days 09/09/2024 Active Encounters Encounter Location Date Provider Diagnosis Herman Figueroa MD [address] [place] [phone] 09/09/2024 Herman Figueroa 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 Assessments Encounter Date Diagnosis (ICD Code) Assessment Notes Treatment Notes Treatment Clinical Notes Section Notes 09/09/2024 Athscl heart disease of [place] coronary artery w/o ang pctrs (ICD-10 - I25.10) Plan Of Treatment Medication Medication Name Sig Start Date Stop Date Notes Metoprolol Succinate ER 100 MG TAKE 1 TA BLET BY MOUTH TWICE A DAY Orally for 90 days Metoprolol Succinate ER 100 MG 1 tablet Orally twice a day for 90 days 09/09/2024 Next Appt Details Provider Name:Herman Zaidi ier, 03/03/2025 01:45:00 PM, [address] [place] [address], [place] [address], [place], [place], [phone], Provider Name:Herman Zaidi ier, 09/01/2025 07:15:00 AM, [address] [place] [address], [place] [address], [place], [place], [phone], Provider Name:Herman Zaidi ier, 09/08/2025 02:30:00 PM, [address] [place] [address], [place] [address], [place], [place], [phone], Progress Notes * Agusto RODRIGUEZ RDOB:1950 ( 74 yo M)Acc No.[id number]:09/09/2024 Patient: Agusto LEVINE :1950 A ge:74 Y S ex:Male Address:[address] [place] [address] * Refills Refill Metoprolol Succinate ER Tablet Extended Release 24 Hour, 100 MG, Orally, 90, TAKE 1 TABLET BY MOUTH TWICE A DAY, 90 days, Refills=3 Start Metoprolol Succinate ER Tablet Extended Release 24 Hour, 100 MG, Orally, 180 Tablet, 1 tablet, twice a day, 90 days * true * Date: Generated for Hamilton walker/Edgardo/Danielitting on: 04/28/2024 01:00 PM EST
--- OUTSIDE RECORDS SUMMARY | 2024-09-12 07:43 | XMS_ITS ---
Author Organization Herman Figueroa MD Address [address] [place] [phone] Care Team Providers Care Extension Service Advisor Name Role Phone Herman Figueroa Primary Care Provider Medications Medication SIG (Take, Route, Frequency, Duration) Notes Start Date End Date Status Metoprolol Tartrate 100 MG 1 tablet with food Orally Twice a day for 90 days 09/12/2024 Active Encounters Encounter Location Date Provider Diagnosis Herman Figueroa MD [address] [place] [phone] 09/12/2024 Herman Figueroa Plan Of Treatment Medication Medication Name Sig Start Date Stop Date Notes Metoprolol Tartrate 100 MG 1 tablet with food Orally Twice a day for 90 days 09/12/2024 Next Appt Details Provider Name:Herman gardner, 03/03/2025 01:45:00 PM, 10 [facility], [address] [place] [address], [phone], Provider Name:Herman gardner, 09/01/2025 07:15:00 AM, [address] [facility], [address], [place], [place], [phone], Provider Name:Herman Zaidi kayleyr, 09/08/2025 02:30:00 PM, 10 [facility], [address], [place], [place], [phone], Progress Notes * Agusto RODRIGUEZ RDOB:1950 ( 74 yo M)Acc No.[id number]:09/12/2024 Patient: Agusto LEVINE :1950 A ge:74 Y S ex:Male Address:[address] [place] [address] * Refills Start Metoprolol Tartrate Tablet, 100 MG, Orally, 180 Tablet, 1 tablet with food, Twice a day, 90 days, Refills=3 * true * Date: Generated for Hamilton walker/Edgardo/Danielitting on: 04/28/2024 01:01 PM EST
--- OUTSIDE RECORDS SUMMARY | 2024-09-16 09:57 | XMS_ITS ---
Author Organization Herman Figueroa MD Address [address] [place] [phone] Care Team Providers Care Sole Leather Cutting Machine Operator Name Role Phone CarolinaAbbyn Primary Care Provider [phone] REASON FOR VISIT med issue Encounters Encounter Location Date Provider Diagnosis Herman Figueroa MD 10 [facility] [address] [place] [phone] 09/16/2024 Herman Figueroa Plan Of Treatment Next Appt Details Provider Name:Herman gardner, 03/03/2025 01:45:00 PM, [address] [place] [address], [address], [phone], Provider Name:Herman gardner, 09/01/2025 07:15:00 AM, [address] [place] [address], [address], [phone], Provider Name:Herman gardner, 09/08/2025 02:30:00 PM, [address] [place] [address], [address], [phone], Progress Notes * Agusto RODRIGUEZ RDOB:1950 ( 74 yo M)Acc No.[id number]:09/16/2024 Patient: Agusto LEVINE :1950 A ge:74 Y S ex:Male Address:[address] [place] [address] * true * Date: Generated for [place] walker/Edgardo/Lisasmitting on: 04/28/2024 01:00 PM EST
--- OUTSIDE RECORDS SUMMARY | 2024-10-06 03:00 | XMS_ITS ---
Author Organization Herman Figueroa MD Address [address] [place] [phone] Care Team Providers Care Windows Application Developer Name Role Phone SwatiHerman salgado Primary Care Provider [phone] Results Component Value Reference Range Notes PSA,Total (Free>4and<10) Reviewed date:10/15/2024 06:24:08 PM Interpretation:10-13-2024 Performing Lab:[facility], [address] [place] [phone] Notes/Report: PSA,Total (Free>4and<10) 4.75 0.00-4.00 ng/mL PSA methodology: Briceño Alinity i Chemiluminescent Microparticle Immunoassay (CMIA) REASON FOR VISIT PSA , TOTAL Encounters Encounter Location Date Provider Diagnosis Herman Figueroa MD [address] [place] [phone] 10/06/2024 Herman Figueroa 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 Assessments Encounter Date Diagnosis (ICD Code) Assessment Notes Treatment Notes Treatment Clinical Notes Section Notes 10/06/2024 Athscl heart disease of [place] coronary artery w/o ang pctrs (ICD-10 - I25.10) Plan Of Treatment Next Appt Details Provider Name:Herman Zaidi ier, 03/03/2025 01:45:00 PM, [address], Suite [facility], [place], [place], [phone], Provider Name:Herman Zaidi ier, 09/01/2025 07:15:00 AM, [address], [address], [place], [place], [phone], Provider Name:Herman Zaidi ier, 09/08/2025 02:30:00 PM, [address] [place] [address], Suite [facility], [place], [place], [phone], Progress Notes * JENNIFER Agusto RDOB:1950 ( 74 yo M)Acc No.[id number]:10/06/2024 Progress Note Patient: Agusto LEVINE Provider: Yessi Figueroa MD :1950 A ge:74 Y S ex:Male Date:10/06/2024 Address:[address] [place], [place] [phone] Subjective: * Chief Complaints: * 1 . PSA , TOTAL. * Medical History: Objective: * Vitals: Assessment: * Assessment: 1. 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 Plan: * Treatment: * Procedure Codes: 3 6415 VENIPUNCT, ROUTINE* * * The named appointment provid er may or may not be the originator of this progress note, and it is not deemed complete until electronically signed by the appointment provider. Sign off status: Pending * Provider: Yessi Figueroa MD Date: 0 10/06/2024 Generated for [place] walker/Edgardo/Jesus on: 04/28/2024 01:01 PM EST
--- OUTSIDE RECORDS SUMMARY | 2024-10-13 08:30 | XMS_ITS ---
Author Organization Herman Figueroa MD Address [address] [place] [phone] Care Team Providers Care Ground School Instructor Name Role Phone Herman Figueroa Primary Care Provider Allergies Allergen (clinical drug ingredient) Drug/Non Drug Allergy documented on EMR Reaction Allergy Type Onset Date Status atorvastatin Lipitor myalgia Drug Allergy Acti ve REASON FOR VISIT 6 WEEK F/U/ must see PSA Medications Medication SIG (Take, Route, Frequency, Duration) Notes Start Date End Date Status Centrum Silver - as directed Orally Active Metoprolol Tartrate 100 MG 1 tablet with food Orally Twice a day for 90 days 09/12/2024 Active Tiadylt ER 360 MG TAKE 1 CAPSULE BY [facility] EVERY DAY for 90 Active Hyoscyamine Sulfate ER 0.375 mg TAKE 1 TABLET DAILY Orally once a day for 90 days Active Triamcinolone Acetonide 0.1 % 1 application Externally Two times a Week for 14 days 02/23/2022 Active Xarelto 20 MG TAKE 1 TABLET DAILY WITH FOOD ORALLY ONCE A DAY 90 DAYS Active Digoxin 125 MCG TAKE 1 TABLET ORALLY ONCE EVERY OTHER DAY 90 DAYS Active Pravastatin Sodium 20 MG 1 tablet Orally Once a day 12/04/2019 Active Albuterol Sulfate HFA 108 (90 Base) MCG/ACT USE 2 INHALATIONS EVERY 4 HOURS IF NEEDED Inhalation every 4 hrs Active Vital Signs Blood pressure systolic 112 mm Hg 10/14/19 25 Blood pressure diastolic 58 mm Hg 025 Height 70.25 in 10/13/2024 Weight 191 lbs 10/13/2024 BMI 27.21 kg/m2 10/13/2024 Encounters Encounter Location Date Provider Diagnosis Herman Figueroa MD [address] [place] [address] Drive [address] [place] [phone] 10/13/2024 Herman Figueroa Rising PSA level R97.20 and Mild intermittent asthma without complication J45.20 Assessments Encounter Date Diagnosis (ICD Code) Assessment Notes Treatment Notes Treatment Clinical Notes Section Notes 10/13/2024 Rising PSA level (ICD-10 - R97.20) have reviewed the false positives with psa. will repeat as the numbers are fluctuating. have explained that at his age if he had a cancer it woud be radiation and not surgery which made him reliebed 10/13/2024 Mild intermittent asthma without complication (ICD-10 - J45.20) with the hot weather that has been upon us he is using his inhaler about 3 times a day with good relief Plan Of Treatment Treatment Notes Assessment Notes Rising PSA level have reviewed the fa lse positives with psa. will repeat as the numbers are fluctuating. have explained that at his age if he had a cancer it woud be radiation and not surgery which made him reliebed Mild intermittent asthma wit hout complication with the hot weather that has been upon us he is using his inhaler about 3 times a day with good relief Next Appt Details Follow Up: 4 Weeks, Reason: Provider Name:Herman gardner, 03/03/2025 01:45:00 PM, [address] [place] [address], Suite [facility], [place], [place], [phone], Provider Name:Herman gardner, 09/01/2025 07:15:00 AM, [address] [place] [address], [address] [place] [address], [phone], Provider Name:Herman gardner, 09/08/2025 02:30:00 PM, [address] [place] [address], [address], [place], [place], [phone], Progress Notes * Agusto RODRIGUEZ RDOB:1950 ( 74 yo M)Acc No.[id number]:10/13/2024 Patient: Agusto LEVINE Provider: Yessi Figueroa MD :1950 A ge:74 Y S ex:Male Date:10/13/2024 Address:[address] [place], [place] [phone] Subjective: * Chief Complaints: * 6 WEEK F/U/ must see PSA * HPI: S ymptom(s): patient is a 74 yo male here for 6 week follow up visit. * ROS: G eneral/Constitutional: Denies C hills. D enies F atigue. D enies F ever. D enies H eadache. E NT: Denies S ore throat. R espiratory: Denies C ough. D enies S hortness of breath at rest. D enies S hortness of breath with exertion. C ardiovascular: Denies C hest pain at rest. D enies C hest pain with exertion. D enies D izziness. D enies O rthopnea. D enies P alpitations.? G astrointestinal: Denies D iarrhea. D enies N ausea. * Medical History: * Surgical History: * Hospitalization/Major Diagno stic Procedure: * Medications: T akingCentrum Silver - Tablet as directed Orally Tiadylt ER 360 MG Capsule Extended Release 24 Hour TAKE 1 CAPSULE BY MOUTH EVERY DAY Hyoscyamine Sulfate ER 0.375 mg Tablet Extended Release 12 Hour TAKE 1 TABLET DAILY Orally once a day Triamcinolone Acetonide 0.1 % Cream 1 application Externally Two times a Week Pravastatin Sodium 20 MG Tablet 1 tablet Orally Once a day Albuterol Sulfate HFA 108 (90 Base) MCG/ACT Aerosol Solution USE 2 INHALATIONS EVERY 4 HOURS IF NEEDED Inhalation every 4 hrs Digoxin 125 MCG Tablet TAKE 1 TABLET ORALLY ONCE EVERY OTHER DAY 90 DAYS Xarelto 20 MG Tablet TAKE 1 TABLET DAILY WITH FOOD ORALLY ONCE A DAY 90 DAYS Metoprolol Tartrate 100 MG Tablet 1 tablet with food Orally Twice a day Taking Centrum Silver - Tablet as directed Orally Taking Tiadylt ER 360 MG Capsule Extended Release 24 Hour TAKE 1 CAPSULE BY MOUTH EVERY DAY Taking Hyoscyamine Sulfate ER 0.375 mg Tablet Extended Release 12 Hour TAKE 1 TABLET DAILY Orally once a day Taking Triamcinolone Acetonide 0.1 % Cream 1 application Externally Two times a Week Taking Pravastatin Sodium 20 MG Tablet 1 tablet Orally Once a day Taking Albuterol Sulfate HFA 108 (90 Base) MCG/ACT Aerosol Solution USE 2 INHALATIONS EVERY 4 HOURS IF NEEDED Inhalation every 4 hrs Taking Digoxin 125 MCG Tablet TAKE 1 TABLET ORALLY ONCE EVERY OTHER DAY 90 DAYS Taking Xarelto 20 MG Tablet TAKE 1 TABLET DAILY WITH FOOD ORALLY ONCE A DAY 90 DAYS Taking Metoprolol Tartrate 100 MG Tablet 1 tablet with food Orally Twice a day DiscontinuedMetoprolol Succinate ER 25 MG Tablet Extended Release 24 Hour TAKE 1 TABLET BY MOUTH EVERY DAY Metoprolol Succinate ER 100 MG Tablet Extended Release 24 Hour TAKE 1 TABLET BY MOUTH TWICE A DAY Orally Metoprolol Succinate ER 100 MG Tablet Extended Release 24 Hour 1 tablet Orally twice a day Medication List reviewed and reconciled with the patientDiscontinued Metoprolol Succinate ER 25 MG Tablet Extended Release 24 Hour TAKE 1 TABLET BY MOUTH EVERY DAY Discontinued Metoprolol Succinate ER 100 MG Tablet Extended Release 24 Hour TAKE 1 TABLET BY MOUTH TWICE A DAY Orally Discontinued Metoprolol Succinate ER 100 MG Tablet Extended Release 24 Hour 1 tablet Orally twice a day Medication List reviewed and reconciled with the patient * Allergies: L ipitor: myalgiayes[Allergies Verified] Objective: * Vitals: H t: 70.25, Wt: 191, BMI:27.21, BP:112/58, Wt-k.64. * Examination: G eneral Examination: GENERAL APPEARANCE: a lert, well hydrated, in no distress.? HEAD: n ormocephalic. EYES: e xtraocular movement full and smooth. SKIN: g ood turgor. HEART: n o murmurs, rubs, gallops, regular rate and rhythm.? LUNGS: n o wheezes, rales, rhonchi, good air movement, clear to auscultation bilaterally. Assessment: * Assessment: 1. [facility] - R97.20 (Primary) 2 . M ild intermittent asthma without complication - J45.20 Plan: * Treatment: 2. M ild intermittent asthma without complication Notes: with the hot weather that has been upon us he is using his inhaler about 3 times a day with good relief * Procedure Codes: * Follow Up: 4 Weeks * * Sign off status: Completed true * Provider: Yessi Figueroa MD Date: 0 10/13/2024 Generated for [place] walker/Edgardo/Lisasmitting on: 04/28/2024 01:00 PM EST History and Physical Notes * HPI (History of Present Illness) Category Sub-Category Detail Notes Category Not es Symptom(s) patient is a 74 yo male here for 6 week follow up visit Examination Category Sub-Category Detail Notes Category Not es General Examination GENERAL APPEARANCE: alert, w ell hydrated, in no distress HEAD: normocephalic EYES: extraocular movement full and smooth HEART: no murmurs, rubs, ga llops, regular rate and rhythm LUNGS: no wheezes, rales, r honchi, good air movement, clear to auscultation bilaterally SKIN: good turgor
--- OUTSIDE RECORDS SUMMARY | 2024-11-11 04:00 | XMS_ITS ---
Author Organization Herman Figueroa MD Address [address] [place] [phone] Care Team Providers Care Skiing Teacher Name Role Phone SujitHerman salas Primary Care Provider Results Component Value Reference Range Notes PSA,Total (Free>4and<10) Reviewed date:11/11/2024 01:16:40 PM Interpretation: Performing Lab:[facility], [address] [place] [phone] Notes/Report: PSA,Total (Free>4and<10) 4.01 0.00-4.00 ng/mL PSA methodology: Briceño Alinity i Chemiluminescent Microparticle Immunoassay (CMIA) REASON FOR VISIT Repeat 1 month PSA Encounters Encounter Location Date Provider Diagnosis Herman Figueroa MD [address] [place] [phone] 11/11/2024 Herman Figueroa Rising PSA level R97.20 Assessments Encounter Date Diagnosis (ICD Code) Assessment Notes Treatment Notes Treatment Clinical Notes Section Notes 11/11/2024 Rising PSA level (ICD-10 - R97.20) Plan Of Treatment Next Appt Details Provider Name:Herman Zaidi ier, 03/03/2025 01:45:00 PM, [address], [address], [place], [phone], Provider Name:Herman Zaidi ier, 09/01/2025 07:15:00 AM, [address], [address], [place], [phone], Provider Name:Herman Zaidi ier, 09/08/2025 02:30:00 PM, [address], [address], [place], [phone], Progress Notes * Agusto RODRIGUEZ RDOB:1950 ( 74 yo M)Acc No.[id number]:11/11/2024 Progress Note Patient: Agusto LEVINE Provider: Yessi Figueroa MD :1950 A ge:74 Y S ex:Male Date:11/11/2024 Address:[address] [place], [place] [phone] Subjective: * Chief Complaints: * 1 . [...] 0 11/11/2024 Generated for [place] walker/Edgardo/eTransmitting on: 04/28/2024 12:59 PM EST
--- OUTSIDE RECORDS SUMMARY | 2025-01-08 08:00 | XMS_ITS ---
Author Organization Herman Figueroa MD Address [address] [place] [phone] Care Team Providers Care Professor Of Astronomy Name Role Phone SwatiHerman salgado Primary Care Provider Results Component Value Reference Range Notes PSA,Total (Free>4and<10) (No t yet reviewed by provider) Interpretation:[facility] 03/03 Performing Lab:[facility], [address] [place] [phone] Notes/Report: PSA,Total (Free>4and<10) 3.94 0.00-4.00 ng/mL A [...] Location Date Provider Diagnosis Herman Figueroa MD [address] [place] [phone] 01/08/2025 Herman Figueroa Elevated PSA R97.20 ; Encounter for administration of vaccine Z23 and Paroxysmal atrial fibrillation I48.0 Assessments Encounter Date Diagnosis (ICD Code) Assessment Notes Treatment Notes Treatment Clinical Notes Section Notes 01/08/2025 Elevated PSA (ICD-10 - R97.20) 01/08/2025 Encounter for administration of vaccine (ICD-10 - Z23) 01/08/2025 Paroxysmal atrial fibrillation (ICD-10 - I48.0) Plan Of Treatment Pending Test Test Name Order Date PSA,Total (Free>4and<10) 01/08/2025 Next Appt Details Provider Name:Herman gardner, 03/03/2025 01:45:00 PM, [address] [place] [address], [address], [phone], Provider Name:Herman gardner, 09/01/2025 07:15:00 AM, [address] [place] [address], [phone], Provider Name:Herman gardner, 09/08/2025 02:30:00 PM, [address] [place] [address], [phone], Progress Notes * Agusto RODRIGEUZ RDOB:1950 ( 74 yo M)Acc No.[id number]:01/08/2025 Progress Note Patient: Agusto LEVINE Provider: Yessi Figueroa MD :1950 A ge:74 Y S ex:Male Date:01/08/2025 Address:[address] [place] [address] Subjective: * Chief Complaints: * 1 . [...] * Procedure Codes: 3 6415 VENIPUNCT, ROUTINE*, 66095 FLU VACC PRSV FREE INC ANTIG, G0008 ADMN FLU VAC NO FEE SCHED SAME DAY * * The named appointment provid er may or may not be the originator of this progress note, and it is not deemed complete until electronically signed by the appointment provider. Sign off status: Pending * Provider: Yessi Figueroa MD Date: 0 01/08/2025 Generated for Hamilton walker/Edgardo/Jesus on: 04/28/2024 01:00 PM EST
--- OUTSIDE RECORDS SUMMARY | 2025-01-20 09:36 | XMS_ITS ---
Author Organization Herman Figueroa MD Address [address] [place] [phone] Care Team Providers Care Stubber Name Role Phone Herman Figueroa Primary Care Provider REASON FOR VISIT refill Medications Medication SIG (Take, Route, Frequency, Duration) Notes Start Date End Date Status Hyoscyamine Sulfate ER 0.375 mg TAKE 1 TABLET DAILY Orally once a day for 90 days Active Encounters Encounter Location Date Provider Diagnosis Herman Figueroa MD [address] [place] [phone] 01/20/2025 Herman Figueroa Plan Of Treatment Medication Medication Name Sig Start Date Stop Date Notes Hyoscyamine Sulfate ER 0.375 mg TAKE 1 T ABLET DAILY Orally once a day for 90 days Next Appt Details Provider Name:Herman gardner, 03/03/2025 01:45:00 PM, [address] [facility], [address] [place] [address], [phone], Provider Name:Herman gardner, 09/01/2025 07:15:00 AM, 10 [facility], [address], [place], [place], [phone], Provider Name:Herman Zaidi ier, 09/08/2025 02:30:00 PM, [address] [facility], [address], [place], [place], [phone], Progress Notes * Agusto RODRIGUEZ RDOB:1950 ( 74 yo M)Acc No.[id number]:01/20/2025 Patient: Agusto LEVINE :1950 A ge:74 Y S ex:Male Address:[address] [place] [address] * Refills Refill Hyoscyamine Sulfate ER Tablet Extended Release 12 Hour, 0.375 mg, Orally, 90, TAKE 1 TABLET DAILY, once a day, 90 days, Refills=3 * true * Date: Generated for Hamilton walker/Edgardo/Danielitting on: 04/28/2024 01:00 PM EST
--- OUTSIDE RECORDS SUMMARY | 2025-02-26 03:30 | XMS_ITS ---
Author Organization Herman Figueroa MD Address [address] [place] [phone] Care Team Providers Care Support Services Specialist Name Role Phone Carolina Herman Primary Care Provider [phone] Results Component Value Reference Range Notes Hemoglobin A1c Reviewed date:02/26/2025 12:46:08 PM Interpretation: Performing Lab:[facility], [address] [place] [phone] Notes/Report: Hemoglobin A1c % 6.4 <6.0 % [...] average glucose, using the formula of the Y2F-Eqffepp Average Glucose study (ADAG), Diabetes Care, Vol.31,#8, Nov. 2007 REASON FOR VISIT FASTING LIPIDS Encounters Encounter Location Date Provider Diagnosis Herman Figueroa MD [address] [place] [address] [place] [phone] 02/26/2025 Herman Figueroa Pure hypercholestero lemia E78.00 and Prediabetes R73.09 Assessments Encounter Date Diagnosis (ICD Code) Assessment Notes Treatment Notes Treatment Clinical Notes Section Notes 02/26/2025 Pure hypercholesterolemia (ICD-10 - E78.00) 02/26/2025 Prediabetes (ICD-10 - R73.09) Plan Of Treatment Pending Test Test Name Order Date Liver Panel 02/26/2025 Glucose Fasting 02/26/2025 Lipid Panel with Reflex 02/26/2025 Next Appt Details Provider Name:Herman Zaidi ier, 03/03/2025 01:45:00 PM, [address] [place] [address], [address], [phone], Provider Name:Herman Zaidi ier, 09/01/2025 07:15:00 AM, [address] [place] [address], [address], [phone], Provider Name:Herman Zaidi ier, 09/08/2025 02:30:00 PM, [address] [place] [address], [address], [phone], Progress Notes * Agusto RODRIGUEZ RDOB:1950 ( 74 yo M)Acc No.[id number]:02/26/2025 Progress Note Patient: Agusto LEVINE Provider: Yessi Figueroa MD :1950 A ge:74 Y S ex:Male Date:02/26/2025 Address:[address] [place], [place] [phone] Subjective: * Chief Complaints: * 1 . FASTING LIPIDS. * Medical History: Objective: * Vitals: Assessment: * Assessment: 1. P ure hypercholesterolemia - E78.00 (Primary) 2 . P rediabetes - R73.09? Plan: * Treatment: 2. P rediabetes L AB: Liver Panel L AB: Glucose Fasting L AB: Lipid Panel with Reflex L AB: Hemoglobin A1c (Collection Date & [...] Figueroa MD Date: 04/28/2024 Generated for Hamilton walker/Edgardo/Danielitting on: 04/28/2024 01:00 PM EST
[2025-02-26 11:44] LABS: Alanine Aminotransferase 33 U/L (0-40); Albumin Level 4.3 g/dL (3.5-5.0); Alkaline Phosphatase 63 U/L (39-117); Aspartate Amino Transferase 38 U/L (5-37); Cholesterol 158 mg/dL (<200); HDL Cholesterol 51 mg/dL (>40); Total Protein 6.8 g/dL (6.5-8.0); Triglycerides 89 mg/dL (<150)
--- OUTSIDE RECORDS SUMMARY | 2025-02-26 12:59 | XMS_ITS | Clinical Summary ---
Author Organization [facility] Address [address] [facility] [address] [place] [address] Phone Care Team Providers Care Expeller Operator Name Role Phone Herman Figueroa MD Primary [...] Insurance wouldn't pay for succinate. 5 Active Active Problems Problem Noted Date Diagnosed Date Longstanding persistent atrial fibrillation 02/2 12/2023 Permanent atrial fibrillation 02/18/2021 Assessment & Plan [...] He did have blood work done at [facility] in August 2021 that shows a creatinine [...] his trial. Due to him being a Orthodoxy he would like to hold off on [...] off on this due to being a Orthodoxy and wanted to avoid procedures at this [...] ablation procedure. He noted he is a Orthodoxy and does want to avoid procedures which [...] Continue to consider A. fib ablation with wireless development manager if pt converts back to atrial fibrillation. [...] Department Care Team Description 12/29/2024 Orders Only [address] Floor, [address] [place] [address] Provider, MD Gracie 12/23/2024 3:03 PM EDT - 12/23/2024 11:59 PM EDT Hospital Encounter [facility] [place] [address] [place] [address] Bridgette Harrison DNP Discharge Disposition: Home or Self Care 12/23/2024 2:30 PM EDT Office Visit [facility] [address] Floor, [address] [place] [address] Bridgette Harrison DNP Permanent atrial fibrillation (Primary Dx); Pure hypercholesterolemia [...] Description 06/23/2025 2:30 PM EDT Office Visit [facility] [address] [place] [address] 3rd Floor, [address] [place] [address] Hunter Bridgette, CORTEZ [address] [facility], [address] [place] [address] [email or web address] Health Maintenance Due Date Last Done Comments [...] 75+ series) 2024 INFLUENZA VACCINE (#1) 2024 0, 02/03/2019, 01/02/2017, Additional history exists COVID-19 VACCINE (2 - 2024- season) 2024 07/01/2020 PNEUMOCOCCAL VACCINES (50+ years) Completed 01/11/2017, 06/21/2015 SMOKING STATUS SCREENING (Once After 26 Yrs) Completed 06/17/2024 HEPATITIS A VACCINES Aged Out No long er eligible based on patient's age to complete this topic HIB VACCINES Aged Out No longer eligi ble based on patient's age to complete this topic IPV VACCINES Aged Out No longer eligi ble [...] EDT Permanent atrial fibrillation BASIC METABOLIC PANEL (BMP) Routine 11/11/2021 2:45 PM EDT Permanent atrial fibrillation from Last 3 Months or Most Recently Relevant to Health Maintenance Results * Outside Lab (12/29/2024 12:51 PM EDT) us Historical Provider LAB BLOOD BKR ORDERABLES Final Result * Digoxin level (12/23/2024 3:26 PM EDT) DIGOXIN 0.9 0.9 - 2.0 ng/mL [facility] Blood 12/23/2024 3:26 PM EDT 12/23/2024 3:27 PM EDT us Bridgette Harrison DNP LAB BLOOD BKR ORDERABLES Final R esult Performing Organization Address City/[facility]/ZIP Co de Phone Number [address] [address] * (ABNORMAL) Basic metabolic panel (11/11/2021 2:45 PM EDT) SODIUM 140 133 - 146 mmol/L [facility] CHLORIDE 103 96 - 108 mmol/L [facility] POTASSIUM 4.3 3.3 - 5.1 mmol/L [facility] CO2 27 21 - 35 mmol/L [facility] BUN 17 6 - 19 mg/dL [facility] CREATININE 1.10 0.5 - 1.5 mg/dL [facility] GLUCOSE 140(H) 70 - 99 mg/dL [facility] CALCIUM 9.5 8.4 - 10.3 mg/dL [facility] EGFR 71 >59 mL/min/1.7 3m2 [facility] Comment:Estimated glomerular filtration rate calculated using the CKD-EPI refit equation. ANION GAP 14 10 - 20 mmol/L [facility] Blood 11/11/2021 2:45 PM EDT 11/11/2021 2:49 PM EDT Juan Abraham MD LAB BLOOD BKR ORDERABLE S Final Result Performing Organization Address City/[facility]/ZIP Co de Phone Number [address] [address] from Last 3 Months or Most Recently [...] Payer (Ef fective 2023-Present) Name:Agusto Hilton Member ID:[id number] Relation to Subscriber:Self Name:Agusto Hilton Subscriber ID:[id number] Payer ID:[id number] Group ID:Not on file Type:Medicare Address: [employer] [address] MEDICARE POS PPO REPLACEMENT Care Teams Expeller Operator Relationship Specialty Start Date End Date Herman Figueroa MD [address] [place] [address] [place] [address] PCP - General 02/01/17 Additional Source Comments The information contained in this document represents components of the legal health record. It is not the complete legal health record.[facility]
--- OUTSIDE RECORDS SUMMARY | 2025-02-26 13:00 | XMS_ITS | Encounter Summary ---
Author Organization [facility] Address [address] [facility] [address] [place] [address] Phone Care Team Providers Care Machine Tool Dresser Name Role Phone Herman Figueroa MD Primary Care Provider Encounter Details Date Type Department Care Team (Late st Contact Info) Description 09/29/2021 Procedure Pass Non-Invasive Cardiology [address] [place] [address] Social History Tobacco Use Types Packs/Day Years [...] Description 06/23/2025 2:30 PM EDT Office Visit [facility] [address] Floor, [address] [place] [address] Bridgette Harrison DNP [address] [facility], [address] [place] [address] documented as of this encounter Visit Diagnoses Not on filedocumented in this encounter Care Teams Machine Tool Dresser Relationship Specialty Start Date End Date Herman Figueroa MD [address] [place] [address] [place] [address] PCP - General 02/01/17 documented as of this encounter Additional Source Comments The information contained in this document represents components of the legal health record. It is not the complete legal health record.[facility]
--- OUTSIDE RECORDS SUMMARY | 2025-02-26 13:00 | XMS_ITS | Encounter Summary ---
Author Organization 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 coronary artery of [facility] [facility] heart without angina pectoris (Primary Dx) Social [...] Description 06/23/2025 2:30 PM EDT Office Visit [facility] [address] [facility] 3rd Floor, [address] [place] [address] Bridgetet Harrison DNP [address] [facility], [address] [place] [address] [email or web address] Source documented as of this encounter Results * [...] in SPECT format, reconstructed tomographically and compared dasx-nw-[id number] in short axis, horizontal long axis and [...] stress report for full details. Everton Ferrari RUG CUTTER . Perfusion Comments Stress LV cavity volume [...] Visit Diagnoses Diagnosis Coronary artery disease involving [facility] coronary artery of [facility] heart without angina pectoris- Primary Coronary artery disease involving [facility] coronary artery of [facility] [facility] heart without angina pectoris documented in this encounter Care Teams Dry Talc Racker Relationship Specialty Start Date End Date Herman Figueroa MD [address] [place] [address] [place] [address] PCP - General 02/01/17 documented as of this encounter Additional Source Comments The information contained in this document represents components of the legal health record. It is not the complete legal health record.[facility]
--- OUTSIDE RECORDS SUMMARY | 2025-02-26 13:00 | XMS_ITS | Encounter Summary ---
Author Organization [facility] Address [address] [facility] [address] [place] [phone] Phone Care Team Providers Care Marine Electrician Helper Name Role Phone Herman Figueroa MD Primary Care Provider Encounter Details Date Type Department Care Team (Late st Contact Info) Description 03/22/2021 Procedure Pass Non-Invasive Cardiology [address] [place] [address] Social History Tobacco Use Types Packs/Day Years [...] Description 06/23/2025 2:30 PM EDT Office Visit [facility] [address] Floor, [address] [place] [address] Bridgette Harrison DNP [address] [facility], [address] [place] [address] documented as of this encounter Visit Diagnoses Not on filedocumented in this encounter Care Teams Marine Electrician Helper Relationship Specialty Start Date End Date Herman Figueroa MD [address] [place] [address] [place] [address] PCP - General 02/01/17 documented as of this encounter Additional Source Comments The information contained in this document represents components of the legal health record. It is not the complete legal health record.[facility]
--- OUTSIDE RECORDS SUMMARY | 2025-02-26 13:00 | XMS_ITS | Encounter Summary ---
Author Organization [facility] Address [address] [facility] [address] [place] [address] Phone Care Team Providers Care Clinical Application Manager Name Role Phone Herman Figueroa MD Primary Care Provider Encounter Details Date Type Department Care Team (Late st Contact Info) Description 02/18/2021 Procedure Pass Non-Invasive Cardiology [address] [place] [address] Social History Tobacco Use Types Packs/Day Years [...] Description 06/23/2025 2:30 PM EDT Office Visit [facility] [address] Floor, [address] [place] [address] Bridgette Harrison DNP [address] [facility], [address] [place] [address] documented as of this encounter Visit Diagnoses Not on filedocumented in this encounter Care Teams Clinical Application Manager Relationship Specialty Start Date End Date Herman Figueroa MD [address] [place] [address] [place] [address] PCP - General 02/01/17 documented as of this encounter Additional Source Comments The information contained in this document represents components of the legal health record. It is not the complete legal health record.[facility]
--- OUTSIDE RECORDS SUMMARY | 2025-02-26 13:00 | XMS_ITS | Patient Health Record ---
Author Organization Herman Figueroa MD Address [address] [place], [place] [id number] Care Team Providers Care Compensation Director Name Role Phone Herman Figueroa Primary Care Provider Allergies Allergen (clinical drug ingredient) Drug/Non Drug Allergy documented on EMR Reaction Allergy Type Onset Date Status atorvastatin Lipitor myalgia Drug Allergy Acti ve Results Component Value Reference Range Notes Complete Blood Count Auto Di ff Reviewed date:08/28/2024 12:43:28 PM Interpretation: Performing Lab:[facility], [address] [place] [phone] Notes/Report: White Blood Count 7.6 4.8-10.8 X10*3/uL [...] COR RECTED REPORT COR RECTED REPORT Comprehensive Carmichaels. Panel Fa st Reviewed date:08/28/2024 12:52:53 PM Interpretation: Performing Lab:[facility], [address] [place] [phone] Notes/Report: Sodium 143 135-145 mmol/L Potassium 4.4 [...] Panel Reviewed date:08/28/2024 12:42:29 PM Interpretation: Performing Lab:[address] [address] Notes/Report: Triglycerides 82 <150 mg/dL Desirable Triglyceride: [...] date:09/05/2024 09:34:36 AM Interpretation:eleonora 09/04 psa Performing Lab:[address] [address] Notes/Report: PSA,Total (Free>4and<10) 4.37 0.00-4.00 ng/mL PSA methodology: Briceño Alinity i Chemiluminescent Microparticle Immunoassay (CMIA) Microalbumin, Random Reviewed date:08/28/2024 12:45:55 PM Interpretation: Performing Lab:[address] [address] Notes/Report: Creatinine Urine 71.78 Microalbumin Urine 9.0 Microalbum/Creatinine Ratio Ur 12.5 <30 ug/mg cr Albumin/Creatinine Ratio Reference Ranges: Normal: < 30 ug/mg creatinine Microalbuminuria: 30 - 300 ug/mg creatinine Clinical Albuminuria: > 300 ug/mg creatinine Hemoglobin A1c Reviewed date:08/28/2024 12:45:47 PM Interpretation: Performing Lab:[address] [place] [address] Notes/Report: Hemoglobin A1c % 6.2 <6.0 % [...] average glucose, using the formula of the H1F-Ctbikkc Average Glucose study (ADAG), Diabetes Care, Vol.31,#8, 2007 UA ClnCatch+Micro w/rflx Cul t Reviewed date:08/28/2024 12:47:43 PM Interpretation: Performing Lab:[address] [address] Notes/Report: Urine, Clean Catch Color Urine Yellow Appearance Urine Clear PH 7.5 5.0-9.0 Glucose Urine UA Negative Negative mg/dL Urine Blood Negative Negative Specific [place] - Urine 1.010 1.005-1.025 Urine Protein Negative Neg-Trace mg/dL Urine Ketones Negative Negative mg/dL Nitrite Urine Negative Negative Leukocyte Esterase Urine Negative Negative RBC Urine 0-2 0-2 /HPF WBC Urine 0-5 0-5 /HPF Squamous Epithelial Cell Urine 0-2 0-2 /HPF Bacteria Urine None Seen None Seen Hyaline Casts Urine 0-2 0-2 /LPF PSA,Total (Free>4and<10) Reviewed date:10/15/2024 06:24:08 PM Interpretation:10-13-2024 Performing Lab:[facility], [address] [place] [phone] Notes/Report: PSA,Total (Free>4and<10) 4.75 0.00-4.00 ng/mL PSA methodology: Briceño Alinity i Chemiluminescent Microparticle Immunoassay (CMIA) PSA,Total (Free>4and<10) Reviewed date:11/11/2024 01:16:40 PM Interpretation: Performing Lab:[facility], [address] [place] [phone] Notes/Report: PSA,Total (Free>4and<10) 4.01 0.00-4.00 ng/mL PSA methodology: Briceño Alinity i Chemiluminescent Microparticle Immunoassay (CMIA) PSA,Total (Free>4and<10) (No t yet reviewed by provider) Interpretation:ELEONORA 03/03 Performing Lab:[address] [address] Notes/Report: PSA,Total (Free>4and<10) 3.94 0.00-4.00 ng/mL A [...] i Chemiluminescent Microparticle Immunoassay (CMIA) Hemoglobin A1c Reviewed date:02/26/2025 12:46:08 PM Interpretation: Performing Lab:[address] [address] Notes/Report: Hemoglobin A1c % 6.4 <6.0 % [...] average glucose, using the formula of the P5H-Omgysvz Average Glucose study (ADAG), Diabetes Care, Vol.31,#8, Nov. 2007 XR lumbar spine 2-3V Reviewed date:04/30/2024 10:12:45 AM Interpretation: Performing Lab: Notes/Report: [address] [address] GENIAay Report Signed Patient: Agusto Hilton MR#: [id number] : 1950 Acct:[id number] Age/Sex: 73 / M ADM Date: 03/11/24 Loc: [facility] Attending Dr: Herman Figueroa MD Ordering Physician: Herman Figueroa MD Date of Service: 03/11/24 Procedure(s): XR lumbar spine 2-3V Accession Number(s): [id number] cc: Herman Figueroa MD EXAMINATION: XR LUMBOSACRAL [...] Joao Mota MD 04/30/2024 09:21 AM EST Dictated By: Joao Mota MD Signed By: <Electronically signed by Joao Mota MD in OV> 04/30/24 0921 DD/ 1327 TD/TT: 03/11/24 1343 Barrel Drainer: [place] [address] XRay Report Signed Patient: Agusto Hilton MR#: [id number] : 1950 Acct:[id number] Age/Sex: 73 / M ADM Date: 03/11/24 Loc: [facility] Attending Dr: Herman Figueroa MD Ordering Physician: Herman Figueroa MD Date of Service: 03/11/24 Procedure(s): XR lum bar spine 2-3V Accession Number(s): [id number] cc: Herman Figueroa MD EXAMINATION: XR LUMBOSACRAL [...] OV> 04/30/[address] DD/ 1327 TD/TT: 03/11/24 1343 Barrel Drainer: XR chest 2V Reviewed date:03/27/2024 03:05:48 PM Interpretation:orders entered Performing Lab: Notes/Report: [address] [address] XRay Report Signed Patient: Agusto Hilton MR#: [id number] : 1950 Acct:[id number] Age/Sex: 73 / M ADM Date: 03/06/24 Loc: HO.XRAY Attending Dr: Herman Figueroa MD Ordering Physician: Herman Figueroa MD Date of Service: 03/06/24 Procedure(s): XR chest 2V Accession Number(s): [id number] cc: Herman Figueroa MD EXAMINATION: XR CHEST [...] Bryan Eden MD in OV> 03/07/24823 DD/ 35 TD/TT: 03/06/24 1559 Barrel Drainer: [address] [address] XRay Report Signed Patient: Agusto Hilton MR#: [id number] : 1950 Acct:[id number] Age/Sex: 73 / M ADM Date: 03/06/24 Loc: HO.XRAY Attending Dr: Herman Figueroa MD Ordering Physician: Herman Figueroa MD Date of Service: 03/06/24 Procedure(s): XR chest 2V Accession Number(s): [id number] cc: Herman Figueroa MD EXAMINATION: XR CHEST [...] OV> 03/07/24823 DD/ 1536 TD/TT: 03/06/24 1559 Barrel Drainer: PSA Free and Total Reviewed date:09/04/2024 03:33:23 PM Interpretation:09-04-2024 Performing Lab:[facility], [address] [place] [phone] Notes/Report: Prostate Specific Ag Total 4.4 < [...] 19 < or = 30 93 9 (3)Cullenona et al.:GEOFFREY 277: [phone] (1996) (4)Catalona et al.:GEOFFREY 279: 5043-0113 (1997) (x)These estimates vary with age, ethnicity, [...] mind. PSA was performed using the Rob [place] Immunoassay method. Values obtained from different assay methods cannot be used interchangeably. PSA levels, regardless of value, should not be interpreted as absolute evidence of the presence or absence of disease. THIS TEST WAS PERFORMED AT: [facility] [address] [place] [phone] ZAN ZAMBRANO MD Free Prostate Spec Ag 0.7 SLIDE REVIEW Reviewed date:08/28/2024 12:42:37 PM Interpretation: Performing Lab:[address] [address] Notes/Report: SLIDE REVIEW VERIFIED PSA Free and Total Reviewed date:10/09/2024 07:51:53 AM Interpretation: Performing Lab:[address], [place] [address] Notes/Report: Prostate Specific Ag Total 4.2 < [...] 30 93 9 (3)Catalona et al.:GEOFFREY 277: 3551-2085 (1996) (4)Catalona et al.:GEOFFREY 279: 4399-0386 (1997) (x)These estimates vary with age, ethnicity, [...] of disease. THIS TEST WAS PERFORMED AT: [email or web address] [address] [address] ZAN ZAMBRANO MD Free Prostate Spec Ag 0.6 Hold Green Gel Reviewed date:10/06/2024 12:26:14 PM Interpretation: Performing Lab:[facility], [address] [place] [phone] Notes/Report: Hold Green Gel See Note Specimen held untested for 24 hours; Call to request Chemistry testing. PSA Free and Total Reviewed date:11/12/2024 02:21:23 PM Interpretation: Performing Lab:[facility], [address] [place] [phone] Notes/Report: Prostate Specific Ag Total 3.3 < [...] 30 93 9 (3)Catalona et al.:GEOFFREY 277: 8271-7205 (1996) (4)Catalona et al.:GEOFFREY 279: 4404-5714 (1997) (x)These estimates vary with age, ethnicity, [...] of disease. THIS TEST WAS PERFORMED AT: [facility] [address] [place] [phone] ZAN ZAMBRANO MD Free Prostate Spec Ag 0.5 Hold Gold Reviewed date:02/26/2025 12:46:16 PM Interpretation: Performing Lab:[facility], [address] [place] [address], [place] [address] Notes/Report: Frederick Suarez See Note Specimen held untested for 24 hours; Call to request Chemistry testing. Reason For Referral No Information Medications Medication SIG (Take, Route, Frequency, Duration) Notes Start Date End Date Status Xarelto 20 MG TAKE 1 TABLET DAILY WITH FOOD ORALLY ONCE A DAY 90 DAYS Active Tiadylt ER 360 MG TAKE 1 CAPSULE BY [facility] EVERY DAY for 90 Active Albuterol Sulfate HFA 108 (90 Base) MCG/ACT INHALE 2 PUFFS EVERY 4 HOURS NEEDED (30 DAY SUPPLY) for 30 Active Centrum Silver - as directed Orally Active Metoprolol Tartrate 100 MG 1 tablet with food Orally Twice a day for 90 days 09/12/2024 Active Triamcinolone Acetonide 0.1 % 1 application Externally Two times a Week for 14 days 02/23/2022 Active Pravastatin Sodium 20 MG 1 tablet Orally Once a day 12/04/2019 Active Hyoscyamine Sulfate ER 0.375 mg TAKE 1 TABLET DAILY Orally once a day for 90 days Active Digoxin 125 MCG TAKE 1 TABLET [...] Problem Status W/U Status Risk Notes Problem 106256440 Reflux esophagit is (K21.00) Active confirmed Problem 27391478 Statin intoleran ce (Z78.9) Active confirmed Problem 651656450 Paroxysmal atria l fibrillation (I48.0) Active confirmed Problem 17178565 Hypercalcemia (E83.52) Active confirme d Problem Ankylosing spondylitis (6581312) Ankylosing spondylitis of thoracic region (M45.4) Active confirmed Problem 908455692 Mild intermitten t asthma without complication (J45.20) Active confirmed Problem 0854464 Prediabetes (R73.09) Active confirmed Problem 93655936 Intrinsic eczema (L20.84) Active confirmed Problem 05439243 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 Problem 702009170 Pure hypercholesterolemia (E78.00) Active confirmed Vital Signs Blood pressure diastolic 58 mm Hg 10/13/2024 Height 70.25 in 10/13/2024 Blood pressure systolic 112 mm Hg 10/13/2024 Weight 191 lbs 10/13/2024 BMI 27.21 kg/m2 10/13/2024 Encounters Encounter Location Date Provider Diagnosis Herman Figueroa MD [address] [place], [place] [id number] 08/28/2024 Herman Figueroa Blood tests for rout ine general physical examination Z00.00 ; Prediabetes R73.09 and Pure hypercholesterolemia E78.00 Herman Figueroa MD [address] [place] [id number] 10/06/2024 Herman Figueroa Athscl heart disease of [place] coronary artery w/o ang pctrs I25.10 Herman Figueroa MD [address] [place] [id number] 11/11/2024 Herman Figueroa Rising PSA level R97 .20 Herman Figueroa MD [address] [place] [id number] 01/08/2025 Herman Figueroa Elevated PSA R97.20 ; Encounter for administration of vaccine Z23 and Paroxysmal atrial fibrillation I48.0 Herman Figueroa MD [address] [place] [id number] 02/26/2025 Herman Figueroa Pure hypercholestero lemia E78.00 and Prediabetes R73.09 Herman Figueroa MD [address] [place] [id number] 03/06/2024 Herman Figueroa Paroxysmal atrial fibrillation I48.0 ; Athscl heart disease of [place] coronary artery w/o ang pctrs I25.10 ; Mild intermittent asthma without complication J45.20 and Mild eczema L30.9 Herman Figueroa MD [address] [place] [id number] 03/27/2024 Herman Figueroa Ankylosing spondylit is of thoracic region M45.4 Herman Figueroa MD [address] [place] [id number] 04/17/2024 Herman Figueroa Ankylosing spondylit is of thoracic region M45.4 and Mild intermittent asthma without complication J45.20 Herman Figueroa MD [address] [place] [id number] 06/12/2024 Herman Figueroa Paroxysmal atrial fibrillation I48.0 and Cerumen impaction H61.20 Herman Figueroa MD [address] [place] [id number] 09/04/2024 Herman Figueroa Athscl heart disease of [place] coronary artery w/o ang pctrs I25.10 ; Annual physical exam Z00.00 ; Paroxysmal atrial fibrillation I48.0 ; Elevated PSA R97.20 ; Hypercalcemia E83.52 ; Pure hypercholesterolemia E78.00 ; Mild intermittent asthma without complication J45.20 and Reflux esophagitis K21.00 Herman Figueroa MD [address] [place] [id number] 10/13/2024 Herman Figueroa Rising PSA level R97 .20 and Mild intermittent asthma without complication J45.20 Herman Figueroa MD [address] [place] [id number] 03/11/2024 Herman Figueroa Ankylosing spondylit is of thoracic region M45.4 Herman Figueroa MD [address] [place] [id number] 07/08/2024 Herman Figueroa Paroxysmal atrial fibrillation I48.0 Herman Figueroa MD [address] [place] [id number] 07/17/2024 Herman Figueroa MD [address] [place] [id number] 09/09/2024 Herman Figueroa Athscl heart disease of [place] coronary artery w/o ang pctrs I25.10 Herman Figueroa MD [address] [place] [id number] 09/12/2024 Herman Figueroa MD [address] [place] [id number] 09/16/2024 Herman Figueroa MD [address] [place] [id number] 01/20/2025 Herman Figueroa Assessments Encounter Date Diagnosis (ICD Code) Assessment Notes Treatment Notes Treatment Clinical Notes Section Notes 08/28/2024 Blood tests for rout ine general physical examination (ICD-10 - Z00.00) 10/06/2024 Athscl heart disease of [place] coronary artery w/o ang pctrs (ICD-10 - I25.10) 11/11/2024 Rising PSA level (ICD-10 - R97.20) 01/08/2025 Elevated PSA (ICD-10 - R97.20) 01/08/2025 Encounter for administration of vaccine (ICD-10 - Z23) 02/26/2025 Pure hypercholesterolemia (ICD-10 - E78.00) 03/06/2024 Paroxysmal atrial fibrillation (ICD-10 - I48.0) rate a little high at 90 to 100 03/06/2024 Athscl heart disease of [place] coronary artery w/o ang pctrs (ICD-10 - [...] good results 09/04/2024 Athscl heart disease of [place] coronary artery w/o ang pctrs (ICD-10 - [...] and not surgery which made him reliebed 07/08/2024 Paroxysmal atrial fibrillation (ICD-10 - I48.0) 09/09/2024 Athscl heart disease of [place] coronary artery w/o ang pctrs (ICD-10 - I25.10) 08/28/2024 Prediabetes (ICD-10 - R73.09) 01/08/2025 Paroxysmal atrial fibrillation (ICD-10 - I48.0) 02/26/2025 Prediabetes (ICD-10 - R73.09) 03/06/2024 Mild intermittent asthma without complication (ICD-10 [...] Test Test Name Order Date Electrocardiogram (EKG) 02/06/2019 Electrocardiogram (EKG) 03/02/2011 Electrocardiogram (EKG) 05/15/2013 Electrocardiogram (EKG) 01/11/2017 Electrocardiogram (EKG) 07/26/2017 XR CHEST 2 VIEW PA & LAT 05/20/2020 XR CHEST 2 VIEW PA & LAT 03/06/2024 XR GI SMALL BOWEL SERIES 07/26/2017 Liver Panel 02/26/2025 Glucose Fasting 02/26/2025 Lipid Panel with Reflex 02/26/2025 PSA,Total (Free>4and<10) 01/08/2025 Next Appt Details Provider Name:Herman zaldivarr, 03/03/2025 01:45:00 PM, [address] [place] [address], [address] [place] [address], [phone], Provider Name:Herman zaldivarr, 09/01/2025 07:15:00 AM, [address] [place] [address], [place] [address], [place], [place], [phone], Provider Name:Herman Zaidi ier, 09/08/2025 02:30:00 PM, [address], [address], [place], [phone], Insurance Providers Payer Name Payer Address Payer Phone Subscriber Number Group Number Insured Name Patient Relationship to Insured Coverage Start Date Coverage End Date [employer]AN [employer] [place] [employer] [address] [place] [phone] [id number] Agusto Hilton Self - patient is the insured Medical (General) History Medical History History ICD Code colonoscopy 08/22/12 - repeat 10 years Toxoplasmosis colonoscopy done 2020, due 5 yrs 2 polyp s
--- OUTSIDE RECORDS SUMMARY | 2025-02-26 13:01 | XMS_ITS | Patient Health Record ---
Author Organization [facility] Address [address] [place] [address] Care Team Providers Care Medical Claims Specialist Name Role Phone Herman Figueroa MD Primary Care Provider Jose Gonzalez Unavailable [phone] Allergies Allergen (clinical drug ingredient) Drug/Non Drug Allergy documented on EMR Reaction Allergy Type Onset Date Status seasonal allergies (uncoded) Unknown Allergy Active Reason For Referral No Information Medications Medication SIG (Take, Route, Frequency, Duration) Notes Start Date End Date Status Cholestyramine 4 GM/DOSE 1/2 to 1 scoop Orally QD or BID for loose stools; Duration: 30 day(s) 08/24/2020 Active Hyoscyamine Sulfate ER 0.375 MG 1 tablet Orally every 12 hrs; Duration: 30 day(s) QD in afternoon Active Sotalol HCl 120 MG 1 tablet Orally bid Active Xarelto 20 MG 1 tablet with food Orally Once a day; Duration: 30 day(s) Active ProAir HFA Active Pravastatin Sodium 20 MG 1 tablet Orally Once a day Active Immunizations Vaccine Route Administration Date Status Comme nts Influenza Unknown 12/16/2019 Administered Problems Problem Type SNOMED Code ICD Code Onset Dates Problem Status W/U Status Risk Notes Problem Irritable bowel syndrome with diarrhea (106620859) Irritable bowel syndrome with diarrhea (K58.0) Active confirmed Problem Abnormal feces (126020822) Heme + stool (R19.5) Active confirmed Problem Diverticulosis of colon (581198357) Diverticulosis of colon (K57.30) Active confirmed Plan Of Treatment Pending Test Test Name Order Date CELIAC PANEL #10 08/24/2020 Pathology 10/01/2020 Future Test Test Name Order Date COLONOSCOPY 07/04/2012 COLONOSCOPY 08/24/2020 Insurance Providers Payer Name Payer Address Payer Phone Subscriber Number Group Number Insured Name Patient Relationship to Insured Coverage Start Date Coverage End Date [facility] [address] [place], [place] [phone] [id number] GINA RODRIGUEZ Self - patient is the insured Medical (General) History Medical History History ICD Code Hiatal hernia-occasional GERD-better wit h change of diet Cardiac stent placement x 1 in 2008-no M I-fine since Allergies-? asthma Denies PR,DM,CVA,renal disease Hyperlipidemia Afib Negative screening colonoscopy in 08/2012 IBS-longstanding > 20 years Surgical History Surgery Date(Month/Year) Cholecystecomy in 2001 Cyst removed from back
--- OUTSIDE RECORDS SUMMARY | 2025-02-26 13:01 | XMS_ITS | Encounter Summary ---
Author Organization [facility] Address [address] [facility] [address] [place] [address] Phone Care Team Providers Care Bindery Chief Name Role Phone Herman Figueroa MD Primary Care Provider Encounter Details Date Type Department Care Team (Late st Contact Info) Description 01/11/2021 Procedure Pass Echo Lab [address] [place] [address] Social History Tobacco Use Types Packs/Day Years [...] Description 06/23/2025 2:30 PM EDT Office Visit [facility] [address] [place] [address] Dr [address] Floor, [address] [place] [address] Bridgette Harrison DNP [address] [facility] [address] [place] [address] documented as of this encounter Visit Diagnoses Not on filedocumented in this encounter Care Teams Bindery Chief Relationship Specialty Start Date End Date Herman Figueroa MD [address] [place] [address] [place] [address] PCP - General 02/01/17 documented as of this encounter Additional Source Comments The information contained in this document represents components of the legal health record. It is not the complete legal health record.[facility]
--- OUTSIDE RECORDS SUMMARY | 2025-02-26 13:01 | XMS_ITS | Encounter Summary ---
Author Organization [facility] Address [address] [facility] [address] [place] [address] Phone Care Team Providers Care Metal Engraver Name Role Phone Herman Figueroa MD Primary Care Provider Encounter Details Date Type Department Care Team (Late st Contact Info) Description 11/23/2022 Procedure Pass Echo Lab [address] [place], [place] [phone] Social History Tobacco Use Types Packs/Day Years [...] Description 06/23/2025 2:30 PM EDT Office Visit [facility] [address] [place] [address] 3rd Floor, [address] [place], [place] [phone] Bridgette Harrison DNP [address] [facility], [address] [place], [place] [phone] [email or web address] documented as of this encounter Visit Diagnoses Not on filedocumented in this encounter Care Teams Metal Engraver Relationship Specialty Start Date End Date Herman Figueroa MD [address] [place] [address] [place] [address] PCP - General 02/01/17 documented as of this encounter Additional Source Comments The information contained in this document represents components of the legal health record. It is not the complete legal health record.[facility]
[2025-02-26 14:55] LABS: Reflex LDLD? No
== END 2025-02-26 10:37 | disposition home or self-care (01) ==
LOC: HO.LNP 10:36
PROVIDERS: Visit Provider Internal Medicine
DX: R73.03 Prediabetes (principal); E78.00 Pure hypercholesterolemia, unspecified
CPT/HCPCS: 80061; 80076; 82947; 83036

== ENCOUNTER 2025-04-07 14:39 | Outpatient (REF) | payer MEDICARE, SELFPAY ==
--- OUTSIDE RECORDS SUMMARY | 2024-09-12 07:43 | XMS_ITS ---
Author Organization Herman Figueroa MD Address [address] [place] [phone] Care Team Providers Care Marketing Production Manager Name Role Phone Herman Figueroa Primary Care Provider [phone] Medications Medication SIG (Take, Route, Frequency, Duration) Notes Start Date End Date Status Metoprolol Tartrate 100 MG 1 tablet with food Orally Twice a day for 90 days 09/12/2024 Active Encounters Encounter Location Date Provider Diagnosis Herman Figueroa MD [address] [place] [phone] 09/12/2024 Herman Figueroa Plan Of Treatment Medication Medication Name Sig Start Date Stop Date Notes Metoprolol Tartrate 100 MG 1 tablet with food Orally Twice a day for 90 days 09/12/2024 Next Appt Details Provider Name:Herman gardner, 06/08/2025 01:45:00 PM, [facility], [address] [place] [address], [phone], Provider Name:Herman gardner, 09/01/2025 07:15:00 AM, [address], [address], [place], [place], [phone], Provider Name:Herman Zaidi kayleyr, 09/08/2025 02:30:00 PM, [address] [facility], [address], [place], [place], [phone], Progress Notes * Agusto RODRIGUEZ RDOB:1950 ( 74 yo M)Acc No.[id number]:09/12/2024 Patient: Agusto LEVINE :1950 A ge:74 Y S ex:Male Address:[address] [place] [id number] * Refills Start Metoprolol Tartrate Tablet, 100 MG, Orally, 180 Tablet, 1 tablet with food, Twice a day, 90 days, Refills=3 * true * Date: Generated for Hamilton walker/Edgardo/Danielitting on: 1 06/08/2024 03:58 PM EST
--- OUTSIDE RECORDS SUMMARY | 2024-09-16 09:57 | XMS_ITS ---
Author Organization Herman Figueroa MD Address [address] [place] [phone] Care Team Providers Care Blast Furnace Auxiliaries Supervisor Name Role Phone Carolina Herman Primary Care Provider [phone] REASON FOR VISIT med issue Encounters Encounter Location Date Provider Diagnosis Herman Figeuroa MD [address] [facility] [address] [place] [phone] 09/16/2024 Herman Figueroa Plan Of Treatment Next Appt Details Provider Name:Herman gardner, 06/08/2025 01:45:00 PM, [address] [place] [address], [address], [phone], Provider Name:Herman gardner, 09/01/2025 07:15:00 AM, [address] [place] [address], [address], [phone], Provider Name:Herman gardner, 09/08/2025 02:30:00 PM, [address] [place] [address], [address], [phone], Progress Notes * Agusto RODRIGUEZ RDOB:1950 ( 74 yo M)Acc No.[id number]:09/16/2024 Patient: Agusto LEVINE :1950 A ge:74 Y S ex:Male Address:[address] [place] [address] * true * Date: Generated for [place] walker/Edgardo/Lisasmitting on: 06/08/2024 03:57 PM EST
--- OUTSIDE RECORDS SUMMARY | 2024-10-06 03:00 | XMS_ITS ---
Author Organization Herman Figueroa MD Address [address] [place] [phone] Care Team Providers Care Trans Router Name Role Phone SujitHerman pompa Primary Care Provider Results Component Value Reference Range Notes PSA,Total (Free>4and<10) Reviewed date:10/15/2024 06:24:08 PM Interpretation:10-13-2024 Performing Lab:[facility], [address] [place] [phone] Notes/Report: PSA,Total (Free>4and<10) 4.75 0.00-4.00 ng/mL PSA methodology: Briceño Alinity i Chemiluminescent Microparticle Immunoassay (CMIA) REASON FOR VISIT PSA , TOTAL Encounters Encounter Location Date Provider Diagnosis Herman Figueroa MD [address] [place] [phone] 10/06/2024 Herman Figueroa 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 Assessments Encounter Date Diagnosis (ICD Code) Assessment Notes Treatment Notes Treatment Clinical Notes Section Notes 10/06/2024 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-10 - I25.10) Plan Of Treatment Next Appt Details Provider Name:Herman Zaidi ier, 06/08/2025 01:45:00 PM, [address], [address], [place], [place], [phone], Provider Name:Herman Zaidi ier, 09/01/2025 07:15:00 AM, [address], [address], [place], [place], [phone], Provider Name:Herman Zaidi ier, 09/08/2025 02:30:00 PM, [address] [place] [address] Drive, Suite [facility], [place], [place], [phone], Progress Notes * JENNIFER Agusto RDOB:1950 ( 74 yo M)Acc No.[id number]:10/06/2024 Progress Note Patient: Agusto LEVINE Provider: Yessi Figueroa MD :1950 A ge:74 Y S ex:Male Date:10/06/2024 Address:[address] [place], [place] [phone] Subjective: * Chief Complaints: * 1 . PSA , TOTAL. * Medical History: Objective: * Vitals: Assessment: * Assessment: 1. 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 Plan: * Treatment: * Procedure Codes: 3 6415 VENIPUNCT, ROUTINE* * * The named appointment provid er may or may not be the originator of this progress note, and it is not deemed complete until electronically signed by the appointment provider. Sign off status: Pending * Provider: Yessi Fiugeroa MD Date: 0 10/06/2024 Generated for [place] walker/Edgardo/Jesus on: 06/08/2024 03:58 PM EST
--- OUTSIDE RECORDS SUMMARY | 2024-10-13 08:30 | XMS_ITS ---
Author Organization Herman Figueroa MD Address [address] [place] [phone] Care Team Providers Care Drum Reel Cutter Name Role Phone Herman Figueroa Primary Care [...] CAPSULE BY [facility] EVERY DAY for 90 Active Hyoscyamine Sulfate [...] Location Date Provider Diagnosis Herman Figueroa MD [address] [place] [address] Drive [address] [place] [phone] 10/13/2024 Herman Figueroa Rising PSA level R97.20 [...] Up: 4 Weeks, Reason: Provider Name:Herman gardner, 06/08/2025 01:45:00 PM, [address] [place] [address], Suite [facility], [place], [place], [phone], Provider Name:Herman gardner, 09/01/2025 07:15:00 AM, [address] [place] [address], [address] [place] [address], [phone], Provider Name:Herman gardner, 09/08/2025 02:30:00 PM, [address] [place] [address], [address], [place], [place], [phone], Progress Notes * Agusto RODRIGUEZ RDOB:1950 ( 74 yo M)Acc No.[id number]:10/13/2024 Patient: Agusto LEVINE Provider: Yessi Figueroa MD :1950 A ge:74 Y S ex:Male Date:10/13/2024 Address:[address] [place], [place] [phone] Subjective: * Chief Complaints: * 6 WEEK [...] auscultation bilaterally. Assessment: * Assessment: [facility]. [facility] - R97.20 (Primary) 2 . [...] 0 10/13/2024 Generated for Hamilton walker/Edgardo/Lisasmitting on: 1 06/08/2024 03:57 PM EST History and Physical Notes * [...]
--- OUTSIDE RECORDS SUMMARY | 2024-11-11 04:00 | XMS_ITS ---
Author Organization Herman Figueroa MD Address [address] [place] [phone] Care Team Providers Care Social Psychologist Name Role Phone SujitHerman salas Primary Care Provider Results Component Value Reference Range Notes PSA,Total (Free>4and<10) Reviewed date:11/11/2024 01:16:40 PM Interpretation: Performing Lab:[facility], [address] [place] [phone] Notes/Report: PSA,Total (Free>4and<10) 4.01 0.00-4.00 ng/mL PSA methodology: Briceño Alinity i Chemiluminescent Microparticle Immunoassay (CMIA) REASON FOR VISIT Repeat 1 month PSA Encounters Encounter Location Date Provider Diagnosis Herman Figueroa MD [address] [place] [phone] 11/11/2024 Herman Figueroa Rising PSA level R97.20 Assessments Encounter Date Diagnosis (ICD Code) Assessment Notes Treatment Notes Treatment Clinical Notes Section Notes 11/11/2024 Rising PSA level (ICD-10 - R97.20) Plan Of Treatment Next Appt Details Provider Name:Herman Zaidi ier, 06/08/2025 01:45:00 PM, [address], [address], [place], [phone], Provider Name:Herman Zaidi ier, 09/01/2025 07:15:00 AM, [address], [address], [place], [phone], Provider Name:Herman Zaidi ier, 09/08/2025 02:30:00 PM, [address], [address], [place], [phone], Progress Notes * Agusto RODRIGUEZ RDOB:1950 ( 74 yo M)Acc No.[id number]:11/11/2024 Progress Note Patient: Agusto LEVINE Provider: Yessi Figueroa MD :1950 A ge:74 Y S ex:Male Date:11/11/2024 Address:[address] [place], [place] [phone] Subjective: * Chief Complaints: * 1 . Repeat 1 month PSA. * Medical History: Objective: * Vitals: Assessment: * Assessment: 1. R ising PSA level - R97.20 (Primary) Plan: * Treatment: * Procedure Codes: 3 6415 VENIPUNCT, ROUTINE* * * The named appointment provid er may or may not be the originator of this progress note, and it is not deemed complete until electronically signed by the appointment provider. Sign off status: Pending * Provider: Yessi Figueroa MD Date: 0 11/11/2024 Generated for [place] walker/Edgardo/eTransmitting on: 06/08/2024 03:56 PM EST
--- OUTSIDE RECORDS SUMMARY | 2025-01-08 08:00 | XMS_ITS ---
Author Organization Herman Figueroa MD Address [address] [place] [phone] Care Team Providers Care Shop Router Name Role Phone SwatiHermna salgado Primary Care Provider Results Component Value Reference Range Notes PSA,Total (Free>4and<10) Reviewed date:03/16/2025 09:02:32 AM Interpretation:KIM 03/03 Performing Lab:[facility], [address] [place] [id number] Notes/Report: PSA,Total (Free>4and<10) 3.94 0.00-4.00 ng/mL A Free PSA was not performed: The percentage of Free PSA can be used to enhance the differentiation of prostate cancer from benign prostatic disease in subjects whose PSA levels are between 4.0 and 10.0 ng/mL. For subjects whose PSA levels are below 4.0 or above 10.0 ng/mL, the risk of prostate cancer is determined on the basis of the PSA alone. Therefore the % Free PSA is recommended only for those subjects whose PSA levels are between 4.0 and 10.0 ng/mL. PSA methodology: Briceño Alinity i Chemiluminescent Microparticle Immunoassay (CMIA) REASON FOR VISIT 2 month repeat Immunizations Vaccine Route Administration Date Status Comme nts Influenza High Dose IM Intramuscular 01/08/2025 Administer ed Encounters Encounter Location Date Provider Diagnosis Herman Figueroa MD [address] [place] [phone] 01/08/2025 Herman Figueroa Elevated PSA R97.20 ; Encounter for administration of vaccine Z23 and Paroxysmal atrial fibrillation I48.0 Assessments Encounter Date Diagnosis (ICD Code) Assessment Notes Treatment Notes Treatment Clinical Notes Section Notes 01/08/2025 Elevated PSA (ICD-10 - R97.20) 01/08/2025 Encounter for administration of vaccine (ICD-10 - Z23) 01/08/2025 Paroxysmal atrial fibrillation (ICD-10 - I48.0) Plan Of Treatment Next Appt Details Provider Name:Herman gardner, 06/08/2025 01:45:00 PM, [address] [place] [address], [address], [phone], Provider Name:Herman gardner, 09/01/2025 07:15:00 AM, [address] [place] [address], [address], [phone], Provider Name:Herman gardner, 09/08/2025 02:30:00 PM, [address] [place] [address], [address], [phone], Progress Notes * Agusto RODRIGUEZ RDOB:1950 ( 74 yo M)Acc No.[id number]:01/08/2025 Progress Note Patient: Agusto LEVINE Provider: Yessi Figueroa MD :1950 A ge:74 Y S ex:Male Date:01/08/2025 Address:[address] [place], [place] [id number] Subjective: * Chief Complaints: * 1 . 2 month repeat. * Medical History: Objective: * Vitals: Assessment: * Assessment: 1. E ncounter for administration of vaccine - Z23 (Primary) 2 . E levated PSA - R97.20 3 . P aroxysmal atrial fibrillation - I48.0 Plan: * Treatment: * Immunizations: Influenza High Dose : 0.5 mL (Dose No:1) (Route: Intramuscular) given by Luz Beltran , Office Staff on Left Deltoid * Procedure Codes: 3 6415 VENIPUNCT, ROUTINE*, 64267 FLU VACC PRSV FREE INC ANTIG, G0008 ADMN FLU VAC NO FEE SCHED SAME DAY * * The named appointment provid er may or may not be the originator of this progress note, and it is not deemed complete until electronically signed by the appointment provider. Sign off status: Pending * Provider: Yessi Figueroa MD Date: 0 01/08/2025 Generated for Hamilton walker/Edgardo/Jesus on: 06/08/2024 03:58 PM EST
--- OUTSIDE RECORDS SUMMARY | 2025-01-20 09:36 | XMS_ITS ---
Author Organization Herman Figueroa MD Address [address] [place] [phone] Care Team Providers Care Costume Maker Name Role Phone Herman Figueroa Primary Care Provider [phone] REASON FOR VISIT refill Medications Medication SIG (Take, Route, Frequency, Duration) Notes Start Date End Date Status Hyoscyamine Sulfate ER 0.375 mg TAKE 1 TABLET DAILY Orally once a day for 90 days Active Encounters Encounter Location Date Provider Diagnosis Herman Figueroa MD [address] [place] [phone] 01/20/2025 Herman Figueroa Plan Of Treatment Medication Medication Name Sig Start Date Stop Date Notes Hyoscyamine Sulfate ER 0.375 mg TAKE 1 T ABLET DAILY Orally once a day for 90 days Next Appt Details Provider Name:Herman gardner, 06/08/2025 01:45:00 PM, [address] [facility], [address] [place] [address], [phone], Provider Name:Herman gardner, 09/01/2025 07:15:00 AM, [address] [facility], [address], [place], [place], [phone], Provider Name:Herman Zaidi ier, 09/08/2025 02:30:00 PM, [address] [facility], [address], [place], [place], [phone], Progress Notes * Agusto RODRIGUEZ RDOB:1950 ( 74 yo M)Acc No.[id number]:01/20/2025 Patient: Agusto LEVINE :1950 A ge:74 Y S ex:Male Address:[address] [place] [address] * Refills Refill Hyoscyamine Sulfate ER Tablet Extended Release 12 Hour, 0.375 mg, Orally, 90, TAKE 1 TABLET DAILY, once a day, 90 days, Refills=3 * true * Date: Generated for Hamilton walker/Edgardo/Danielitting on: 06/08/2024 03:57 PM EST
--- OUTSIDE RECORDS SUMMARY | 2025-02-26 03:30 | XMS_ITS ---
Author Organization Herman Figueroa MD Address [address] [place], [place] [phone] Care Team Providers Care Laborer Yard Name Role Phone SwatiHerman salgado Primary Care Provider Results Component Value Reference Range Notes Liver Panel Reviewed date:02/26/2025 02:57:21 PM Interpretation: Performing Lab:[facility], [address] [place] [phone] Notes/Report: Bilirubin Total 0.9 0.0-1.0 mg/dL Bilirubin Direct 0.3 0.0-0.5 mg/dL Aspartate Amino Transferase 38 5-37 U/L Alanine Aminotransferase 33 0-40 U/L Total Protein 6.8 6.5-8.0 g/dL Albumin Level 4.3 3.5-5.0 g/dL Alkaline Phosphatase 63 39-117 U/L Glucose Fasting Reviewed date:02/26/2025 02:57:12 PM Interpretation: Performing Lab:[facility], [address] [place] [phone] Notes/Report: Glucose Fasting 135 60-99 mg/dL A fasting glucose of 126 mg/dl or greater on more than one occasion is considered diagnostic of diabetes. Lipid Panel with Reflex Reviewed date:02/26/2025 02:57:44 PM Interpretation: Performing Lab:[facility], [address] [place] [phone] Notes/Report: Triglycerides 89 <150 mg/dL Desirable Triglyceride: less than 150 mg/dL Borderline High Triglyceride 150-199 mg/dL High Triglyceride: 200-499 mg/dL Very High Triglyceride: greater than or equal to 5OO mg/dL Cholesterol 158 <200 mg/dL Desirable Cholesterol: less than 200 mg/dL Borderline High Cholesterol: 200-239 mg/dL High Cholesterol: greater than 239 mg/dL LDL Cholesterol Calculated 90 <100 mg/dL Desirable LDL: less than 100 mg/dL Near Optimal/Above Optimal LDL: 110-129 mg/dL Borderline High LDL: 130-159 mg/dL High LDL: 160-189 mg/dL Very High LDL: greater than or equal to 190 mg/dL HDL Cholesterol 51 >40 mg/dL Desirable HDL: greater than 40 mg/dL Note: This HDL assay may give artificially low results in patients with liver disease. Hemoglobin A1c Reviewed date:02/26/2025 12:46:08 PM Interpretation: Performing Lab:[facility], [address] [place] [phone] Notes/Report: Hemoglobin A1c % 6.4 <6.0 % Hemoglobin A1C Reference Range Adults: 4.8 - 6.0 % Non diabetic: < 6.0 % Goal: < 7.0 % Additional Action Suggested: > 8.0 % Note: Hemoglobin A1c results are invalid for patients with abnormal amounts of HbF. Blood transfusions may impact the HbA1c concentration in the patient sample. Estimated Average Glucose 137 eAG = Estimated average glucose which is %A1C expressed as average glucose, using the formula of the M4Y-Swoijfb Average Glucose study (ADAG), Diabetes Care, Vol.31,#8, Nov. 2007 REASON FOR VISIT FASTING LIPIDS Encounters Encounter Location Date Provider Diagnosis Herman Figueroa MD [address] [place] [address] [address] [place], [place] [phone] 02/26/2025 Herman Figueroa Pure hypercholestero lemia E78.00 and Prediabetes R73.09 Assessments Encounter Date Diagnosis (ICD Code) Assessment Notes Treatment Notes Treatment Clinical Notes Section Notes 02/26/2025 Pure hypercholesterolemia (ICD-10 - E78.00) 02/26/2025 Prediabetes (ICD-10 - R73.09) Plan Of Treatment Next Appt Details Provider Name:Herman Zaidi jj, 06/08/2025 01:45:00 PM, [address] [place] [address], [place] [address], [place], [place], [phone], Provider Name:Herman Zaidi jj, 09/01/2025 07:15:00 AM, [address] [place] [address], Suite [facility], [place], [place], [phone], Provider Name:Herman Zaidi jj, 09/08/2025 02:30:00 PM, [address] [place] [address], [place] [address], [place], [place], [phone], Progress Notes * JENNIFER Agusto RDOB:1950 ( 74 yo M)Acc No.[id number]:02/26/2025 Progress Note Patient: Agusto LEVINE Provider: Yessi Figueroa MD :1950 A ge:74 Y S ex:Male Date:02/26/2025 Address:[address] [place], [place] [phone] Subjective: * Chief Complaints: * 1 . FASTING LIPIDS. * Medical History: Objective: * Vitals: Assessment: * Assessment: 1. P ure hypercholesterolemia - E78.00 (Primary) 2 . P rediabetes - R73.09? Plan: * Treatment: 2. P rediabetes L AB: Liver Panel (Collection Date & Time - 02/26/2025 08:30 AM) L AB: Glucose Fasting (Collection Date & Time - 02/26/2025 08:30 AM) L AB: Lipid Panel with Reflex (Collection Date & Time - 02/26/2025 08:30 AM) L AB: Hemoglobin A1c (Collection Date & Time - 02/26/2025 08:30 AM) * Procedure Codes: 3 6415 VENIPUNCT, ROUTINE* * * The named appointment provid er may or may not be the originator of this progress note, and it is not deemed complete until electronically signed by the appointment provider. Sign off status: Pending * Provider: Yessi Figueroa MD Date: 04/28/2024 Generated for Hamilton Franklin/Jesus on: 06/08/2024 03:57 PM EST
--- OUTSIDE RECORDS SUMMARY | 2025-03-03 08:45 | XMS_ITS ---
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) Referral Organization Herman Figueroa MD Referring Provider First Name Herman Referring Provider Last Name Carolina Referring Provider Speciality Internal M edicine Referred Provider Angelo Smith Referred Provider Specialty Cardiovascul ar Disease General Notes Keisha Worthington 1 05/03/2024 02:20:13 PM >referral info faxed Referral Priority Routine Referral Appointment Date 08/25/2025 REASON FOR VISIT 6 MO AND CBACK PSA Medications Medication SIG (Take, Route, Frequency, Duration) Notes Start Date End Date Status Triamcinolone Acetonide 0.1 % 1 application Externally Two times a Week for 14 days 02/23/2022 Active Centrum Silver - as directed Orally Active Albuterol Sulfate HFA 108 (90 Base) MCG/ACT INHALE 2 PUFFS EVERY 4 HOURS NEEDED (30 DAY SUPPLY) for 30 Active Hyoscyamine Sulfate ER 0.375 mg TAKE 1 TABLET DAILY Orally once a day for 90 days Active Tiadylt ER 360 MG TAKE 1 CAPSULE BY [facility] EVERY DAY for 90 Active Digoxin 125 MCG TAKE 1 TABLET ORALLY ONCE EVERY OTHER DAY 90 DAYS Active Pravastatin Sodium 20 MG 1 tablet Orally Once a day 12/04/2019 Active Xarelto 20 MG TAKE 1 TABLET DAILY WITH FOOD ORALLY ONCE A DAY 90 DAYS Active Metoprolol Tartrate 100 MG 1 tablet with food Orally Twice a day for 90 days 09/12/2024 Active Vital Signs Blood pressure systolic 90 mm Hg 03/03/20 25 Blood pressure diastolic 62 mm Hg 025 Height 70.25 in 03/03/2025 Weight 197 lbs 03/03/2025 BMI 28.06 kg/m2 03/03/2025 weight is up 6 pounds since 10-13-24 Encounters Encounter Location Date Provider Diagnosis Herman Figueroa MD [address] [facility] [address] [place] [phone] 03/03/2025 Herman Figueroa Paroxysmal atrial fibrillation I48.0 ; 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 and Pure hypercholesterolemia E78.00 Assessments Encounter Date Diagnosis (ICD Code) Assessment Notes Treatment Notes Treatment Clinical Notes Section Notes 03/03/2025 Paroxysmal atrial fibrillation (ICD-10 - I48.0) needs referral to ANGELIQUE LYN at [facility]/ needs to see cardio first before being referred 03/03/2025 Athscl heart disease of [place] coronary artery w/o ang pctrs (ICD-10 - I25.10) referral to [facility] [place] 03/03/2025 Pure hypercholesterolemia (ICD-10 - E78.00) Plan Of Treatment Treatment Notes Assessment Notes Paroxysmal atrial fibrillation needs ref erral to ANGELIQUE LYN at [facility]/ needs to see cardio first before being referred Athscl heart disease of [place] coronary artery w/o ang pctrs referral to [facility] Referrals Referral Date Details 03/03/2025 03/03/2025, athscl h eart disease of [place] coronary w/o ang pctrs, Angelo Smith Next Appt Details Follow Up: 4 Weeks, Reason: Provider Name:Herman Zaidi ier, 06/08/2025 01:45:00 PM, [address], [address], [place], [place], [phone], Provider Name:Herman Zaidi ier, 09/01/2025 07:15:00 AM, [address], [address], [place], [place], [phone], Provider Name:Herman Zaidi ier, 09/08/2025 02:30:00 PM, [address], Suite [facility], [place], [place], [phone], Progress Notes * JENNIFER, Agusto RDOB:1950 ( 74 yo M)Acc No.[id number]:03/03/2025 Patient: Agusto LEVINE Provider: Yessi Figueroa MD :1950 A ge:74 Y S ex:Male Date:03/03/2025 Address:[address] [place] [address] Subjective: * Chief Complaints: * 6 MO AND CBACK PSA * HPI: S ymptom(s): patient is a 74 yo male here for 6 month follow up visit/ using inhaler 3 times per day. works when he uses. * ROS: G eneral/Constitutional: Denies C hills. D enies F atigue. D enies F ever. D enies H eadache. E NT: Denies S ore throat. R espiratory: Admits C ough. A dmits S hortness of breath at rest. A dmits S hortness of breath with exertion. C ardiovascular: Denies C hest pain at rest. D enies C hest pain with exertion. D enies D izziness. D enies P alpitations. A dmits S hortness of breath. G astrointestinal: Denies D iarrhea. D enies N ausea. * Medical History: * Surgical History: * Hospitalization/Major Diagno stic Procedure: * Medications: T akingCentrum Silver - Tablet as directed Orally Triamcinolone Acetonide 0.1 % Cream 1 application Externally Two times a Week Pravastatin Sodium 20 MG Tablet 1 tablet Orally Once a day Digoxin 125 MCG Tablet TAKE 1 TABLET ORALLY ONCE EVERY OTHER DAY 90 DAYS Xarelto 20 MG Tablet TAKE 1 TABLET DAILY WITH FOOD ORALLY ONCE A DAY 90 DAYS Metoprolol Tartrate 100 MG Tablet 1 tablet with food Orally Twice a day Albuterol Sulfate HFA 108 (90 Base) MCG/ACT Aerosol Solution INHALE 2 PUFFS EVERY 4 HOURS NEEDED (30 DAY SUPPLY) Tiadylt ER 360 MG Capsule Extended Release 24 Hour TAKE 1 CAPSULE BY MOUTH EVERY DAY Hyoscyamine Sulfate ER 0.375 mg Tablet Extended Release 12 Hour TAKE 1 TABLET DAILY Orally once a day Taking Centrum Silver - Tablet as directed Orally Taking Triamcinolone Acetonide 0.1 % Cream 1 application Externally Two times a Week Taking Pravastatin Sodium 20 MG Tablet 1 tablet Orally Once a day Taking Digoxin 125 MCG Tablet TAKE 1 TABLET ORALLY ONCE EVERY OTHER DAY 90 DAYS Taking Xarelto 20 MG Tablet TAKE 1 TABLET DAILY WITH FOOD ORALLY ONCE A DAY 90 DAYS Taking Metoprolol Tartrate 100 MG Tablet 1 tablet with food Orally Twice a day Taking Albuterol Sulfate HFA 108 (90 Base) MCG/ACT Aerosol Solution INHALE 2 PUFFS EVERY 4 HOURS NEEDED (30 DAY SUPPLY) Taking Tiadylt ER 360 MG Capsule Extended Release 24 Hour TAKE 1 CAPSULE BY MOUTH EVERY DAY Taking Hyoscyamine Sulfate ER 0.375 mg Tablet Extended Release 12 Hour TAKE 1 TABLET DAILY Orally once a day * Allergies: L ipitor: myalgiayes[Allergies Verified] Objective: * Vitals: H t: 70.25, Wt: 197, BMI:28.06, BP:90/62, Wt-k.36. weight is up 6 pounds since 10-13-24. * P ast Orders: L ab:Hemoglobin A1c (Order Date - 02/26/2025) (Collection Date & Time - 02/26/2025 08:30 AM) Value Reference Range Hemoglobin A1c % 6.4 H <6.0 - % Estimated Average Glucose 137 - mg/dL L ab:Liver Panel (Order Date - 02/26/2025) (Collection Date & Time - 02/26/2025 08:30 AM) Value Reference Range Bilirubin Total 0.9 0.0-1.0 - mg/dL Bilirubin Direct 0.3 0.0-0.5 - mg/dL Aspartate Amino Transferase 38 H 5-37 - U/L Alanine Aminotransferase 33 0-40 - U/L Total Protein 6.8 6.5-8.0 - g/dL Albumin Level 4.3 3.5-5.0 - g/dL Alkaline Phosphatase 63 39-117 - U/L L ab:Glucose Fasting (Order Date - 02/26/2025) (Collection Date & Time - 02/26/2025 08:30 AM) Value Reference Range Glucose Fasting 135 H 60-99 - mg/dL L ab:Lipid Panel with Reflex (Order Date - 02/26/2025) (Collection Date & Time - 02/26/2025 08:30 AM) Value Reference Range Triglycerides 89 <150 - mg/dL Cholesterol 158 <200 - mg/dL LDL Cholesterol Calculated 90 <100 - mg/dL HDL Cholesterol 51 >40 - mg/dL * Examination: G eneral Examination: GENERAL APPEARANCE: a lert, well hydrated, in no distress.? HEAD: n ormocephalic. SKIN: g ood turgor. HEART: o ccasional extrasystole. LUNGS: n o wheezes, rales, rhonchi, good air movement, clear to auscultation bilaterally. EXTREMITIES: n o edema. Assessment: * Assessment: 1. P aroxysmal atrial fibrillation - I48.0 (Primary) 2 . 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 P ure hypercholesterolemia - E78.00 Plan: * Treatment: 2. 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 works when he uses Examination Category Sub-Category Detail Notes Category Not es General Examination GENERAL APPEARANCE: alert, w ell hydrated, in no distress HEAD: normocephalic HEART: occasional extrasyst ole LUNGS: no wheezes, rales, r honchi, good air movement, clear to auscultation bilaterally SKIN: good turgor EXTREMITIES: no edema Consultation Request Notes Referral Date Referring Provider Referred Provider Not es 03/03/2025 Herman Figueroa Khawar athscl h eart disease of [place] coronary w/o ang pctrs
--- OUTSIDE RECORDS SUMMARY | 2025-04-07 08:30 | XMS_ITS ---
Author Organization Herman Figueroa MD Address [address] [place] [phone] Care Team Providers Care Banana Grader Name Role Phone Carolina Herman Primary Care Provider Allergies Allergen (clinical drug ingredient) Drug/Non Drug Allergy documented on EMR Reaction Allergy Type Onset Date Status atorvastatin Lipitor myalgia Drug Allergy Acti ve Results Component Value Reference Range Notes Complete Blood Count Auto Di ff (Not yet reviewed by provider) Interpretation: Performing Lab:[facility], [address] [place] [phone] Notes/Report: White Blood Count 9.5 4.8-10.8 X10*3/uL Red Blood Count 5.32 4.60-5.80 X10*6/uL Hemoglobin 17.0 14.0-18.0 g/dl Hematocrit 50.1 42.0-52.0 % Mean Corpuscular Volume 94.2 80.0-98.0 fL Mean Corpuscular Hemoglobin 32.0 27.0-33.0 pg Mean Corpuscular HGB Conc 33.9 31.0-36.0 g/dl Red Cell Distribution Width 13.0 11.0-16.0 % Platelet Count 150 160-400 X10*3/uL Mean Platelet Volume 12.9 9.4-12.4 fL Neutrophils Percent Auto 69.0 45-73 % Imm Gran Pct Auto 0.4 0.0-0.4 % Lymphocytes Percent Auto 17.1 20-40 % Monocytes Percent Auto 7.4 2-11 % Eosinophils Percent Auto 5.6 0-4 % Basophils Percent Auto 0.5 0-2 % NRBC Pct Auto 0.0 0.0-0.2 /100WBC Neutrophils Absolute Auto 6.5 2.0-8.3 x10*3/u L Imm Gran Abs Auto 0.04 0.00-0.03 X10*3/uL Lymphocytes Absolute Auto 1.6 1.2-4.9 X10*3/u L Monocytes Absolute Auto 0.7 0.1-1.2 X10*3/uL Eosinophils Absolute Auto 0.5 0.0-0.4 X10*3/u L Basophils Absolute Auto 0.1 0.0-0.2 X10*3/uL NRBC Abs Auto 0.000 0.0-0.012 X10*3/uL Comprehensive Dyer. Panel Fa st (Not yet reviewed by provider) Interpretation: Performing Lab:[facility], [address] [place] [phone] Notes/Report: Sodium 142 135-145 mmol/L Potassium 4.2 3.3-5.1 mmol/L Chloride 107 96-108 mmol/L Carbon Dioxide 27 22-29 mmol/L Anion Gap 12 12-20 Blood Urea Nitrogen 16 9-16 mg/dL Creatinine 1.06 0.5-1.4 mg/dL Estimated Glomerular Filt Rate > 60 Chronic Kidney Disease: Estimated GFR < 60 mL/min/1.73m2 Severe Kidney Disease: Estimated GFR < 15 mL/min/1.73m2 Glucose Fasting 105 60-99 mg/dL A fasting glucose from 100-125 mg/dl is considered impaired (pre-diabetes). Calcium 9.6 8.4-10.2 mg/dL Bilirubin Total 0.8 0.0-1.0 mg/dL Aspartate Amino Transferase 32 5-37 U/L Alanine Aminotransferase 31 0-40 U/L Total Protein 6.2 6.5-8.0 g/dL Albumin Level 4.0 3.5-5.0 g/dL Alkaline Phosphatase 66 39-117 U/L PSA,Total (Free>4and<10) (No t yet reviewed by provider) Interpretation: Performing Lab:[facility], [address] [place] [phone] Notes/Report: PSA,Total (Free>4and<10) 3.35 0.00-4.00 ng/mL A Free PSA was not [...] between 4.0 and 10.0 ng/mL. PSA methodology: Broadcast PixniGungroo i Chemiluminescent Microparticle Immunoassay (CMIA) REASON FOR VISIT 4 week follow up appt Medications Medication SIG (Take, Route, Frequency, Duration) Notes Start Date End Date Status Pravastatin Sodium 20 MG 1 tablet Orally Once a day for 90 days 12/04/2019 Active Tiadylt ER 360 MG TAKE 1 CAPSULE BY [facility] EVERY DAY for 90 Active Hyoscyamine Sulfate ER 0.375 mg TAKE 1 TABLET DAILY Orally once a day for 90 days Active Albuterol Sulfate HFA 108 (90 Base) MCG/ACT INHALE 2 PUFFS EVERY 4 HOURS NEEDED (30 DAY SUPPLY) for 30 Active Metoprolol Tartrate 100 MG 1 tablet with food Orally Twice a day for 90 days 09/12/2024 Active Digoxin 125 MCG TAKE 1 TABLET ORALLY ONCE EVERY OTHER DAY 90 DAYS Active Centrum Silver - as directed Orally Active Triamcinolone Acetonide 0.1 % 1 application Externally Two times a Week for 14 days 02/23/2022 Active Xarelto 20 MG TAKE 1 TABLET DAILY WITH FOOD ORALLY ONCE A DAY 90 DAYS Active Vital Signs Blood pressure systolic 94 mm Hg 04/07/20 25 Blood pressure diastolic 60 mm Hg 025 Heart Rate 70 /min 04/07/2025 Height 70.25 in 04/07/2025 Weight 196 lbs 04/07/2025 BMI 27.92 kg/m2 04/07/2025 Encounters Encounter Location Date Provider Diagnosis Herman Figueroa MD [address] [place] [phone] 04/07/2025 Herman Figueroa Pure hypercholestero lemia E78.00 ; Paroxysmal atrial fibrillation I48.0 ; 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 and Mild intermittent asthma without complication J45.20 Assessments Encounter Date Diagnosis (ICD Code) Assessment Notes Treatment Notes Treatment Clinical Notes Section Notes 04/07/2025 Pure hypercholesterolemia (ICD-10 - E78.00) 04/07/2025 Paroxysmal atrial fibrillation (ICD-10 - I48.0) have him go back to [facility] 04/07/2025 Athscl heart disease of [place] coronary artery w/o ang pctrs (ICD-10 - I25.10) not having any chest pain 04/07/2025 Mild intermittent as thma without complication (ICD-10 - J45.20) having to use inhaler frequently Plan Of Treatment Medication Medication Name Sig Start Date Stop Date Notes Pravastatin Sodium 20 MG 1 tablet Orally Once a day for 90 days 12/04/2019 Treatment Notes Assessment Notes Paroxysmal atrial fibrillation have him go back to [facility] heart disease of [place] ve coronary artery w/o ang pctrs not having any chest pain Mild intermittent asthma wit hout complication having to use inhaler frequently Pending Test Test Name Order Date Complete Blood Count Auto Diff 5 Comprehensive Dyer. Panel Fast 5 PSA,Total (Free>4and<10) 04/07/2025 NT-proBNP 04/07/2025 Next Appt Details Follow Up: 2 Months, Reason: Provider Name:Herman gardner, 06/08/2025 01:45:00 PM, [address], [address], [place], [place], [phone], Provider Name:Herman gardner, 09/01/2025 07:15:00 AM, [address], [address], [place], [place], [phone], Provider Name:Herman gardner, 09/08/2025 02:30:00 PM, [address] [place] [address], [address], [place], [place], [phone], Progress Notes * Agusto RODRIGUEZ RDOB:1950 ( 74 yo M)Acc No.[id number]:04/07/2025 Progress Notes Patient: Agusto LEVINE Provider: Yessi Figueroa MD :1950 A ge:74 Y S ex:Male Date:04/07/2025 Address:[address] [place], [place] [id number] Subjective: * Chief Complaints: * 1 . 4 week follow up appt. * HPI: S ymptom(s): patient is a 74 yo male here for 4 week follow up visit. * ROS: G [...] D enies N ausea. * Medical History: C olonoscopy 08/22/12 - repeat 10 years, Toxoplasmosis, Colonoscopy done 2020, due 5 yrs 2 polyps. * Medications: T aking Centrum Silver - Tablet as directed Orally , Taking Triamcinolone Acetonide 0.1 % Cream 1 application Externally Two times a Week , Taking Pravastatin Sodium 20 MG Tablet 1 tablet Orally Once a day , Taking Digoxin 125 MCG Tablet TAKE 1 TABLET ORALLY ONCE EVERY OTHER DAY 90 DAYS , Taking Xarelto 20 MG Tablet TAKE 1 TABLET DAILY WITH FOOD ORALLY ONCE A DAY 90 DAYS , Taking Metoprolol Tartrate 100 MG Tablet 1 tablet with food Orally Twice a day , Taking Albuterol Sulfate HFA 108 (90 Base) MCG/ACT Aerosol Solution INHALE 2 PUFFS EVERY 4 HOURS NEEDED (30 DAY SUPPLY) , Taking Tiadylt ER 360 MG Capsule Extended Release 24 Hour TAKE 1 CAPSULE BY MOUTH EVERY DAY , Taking Hyoscyamine Sulfate ER 0.375 mg Tablet Extended Release 12 Hour TAKE 1 TABLET DAILY Orally once a day , Medication List reviewed and reconciled with the patient * Allergies: L ipitor: myalgia. Objective: * Vitals: H t: 70.25, Wt: 196, BMI:27.92, BP:94/60, HR:70, Wt-k.91. * Examination: G eneral Examination: GENERAL APPEARANCE: a lert, well hydrated, in no distress.? HEAD: n ormocephalic. SKIN: g ood turgor. HEART: r egular rate and rhythm, no murmurs, rubs, gallops.? LUNGS: g ood air movement, clear to auscultation bilaterally. EXTREMITIES: n o edema. Assessment: * Assessment: 1. P ure hypercholesterolemia - E78.00 (Primary) 2 . P aroxysmal atrial fibrillation - I48.0 3 . 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 M ild intermittent asthma without complication - J45.20 ? Plan: * Treatment: 2. P aroxysmal atrial fibrillation Notes: have him go back to [facility] 3. 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 M ild intermittent asthma without complication Notes: having to use inhaler frequently * Procedure Codes: 3 6415 VENIPUNCT, ROUTINE* * Follow Up: 2 Months * * The named appointment provid er may or may not be the originator of this progress note, and it is not deemed complete until electronically signed by the appointment provider. Sign off status: Pending * Provider: Yessi Figueroa MD Date: 06/08/2024 Generated for Hamilton walker/Edgardo/Jesus on: 06/08/2024 03:58 PM EST History and Physical Notes * HPI (History of Present Illness) Category Sub-Category Detail Notes Category Not es Symptom(s) patient is a 74 yo male here for 4 week follow up visit Examination Category Sub-Category Detail Notes Category Not es General Examination GENERAL APPEARANCE: alert, w ell hydrated, in no distress HEAD: normocephalic HEART: regular rate and rhy thm, no murmurs, rubs, gallops LUNGS: good air movement, c lear to auscultation bilaterally SKIN: good turgor EXTREMITIES: no edema
[2025-04-07 14:43] LABS: MANUAL DIFF FLAG NO
[2025-04-07 14:46] LABS: Hematocrit 50.1 % (42.0-52.0); Hemoglobin 17.0 g/dl (14.0-18.0); Imm Gran Abs Auto 0.04 X10*3/uL (0.00-0.03); Imm Gran Pct Auto 0.4 % (0.0-0.4); Lymphocytes Absolute Auto 1.6 X10*3/uL (1.2-4.9); Mean Corpuscular HGB Conc 33.9 g/dl (31.0-36.0); Mean Corpuscular Hemoglobin 32.0 pg (27.0-33.0); Mean Corpuscular Volume 94.2 fL (80.0-98.0); NRBC Abs Auto 0.000 X10*3/uL (0.0-0.012); NRBC Pct Auto 0.0 /100WBC (0.0-0.2); Platelet Count 150 X10*3/uL (160-400); Red Blood Count 5.32 X10*6/uL (4.60-5.80); White Blood Count 9.5 X10*3/uL (4.8-10.8)
[2025-04-07 14:58] LABS: Alanine Aminotransferase 31 U/L (0-40); Albumin Level 4.0 g/dL (3.5-5.0); Alkaline Phosphatase 66 U/L (39-117); Anion Gap 12 (12-20); Aspartate Amino Transferase 32 U/L (5-37); Blood Urea Nitrogen 16 mg/dL (9-16); Calcium 9.6 mg/dL (8.4-10.2); Carbon Dioxide 27 mmol/L (22-29); Chloride 107 mmol/L (96-108); Estimated Glomerular Filt Rate > 60; Potassium 4.2 mmol/L (3.3-5.1); Sodium 142 mmol/L (135-145); Total Protein 6.2 g/dL (6.5-8.0)
[2025-04-07 15:18] LABS: NT Pro B Type Natriuretic Pept 1511.9 pg/mL (<300)
[2025-04-07 15:33] LABS: PSA,Total (Free>4and<10) 3.35 ng/mL (0.00-4.00)
--- OUTSIDE RECORDS SUMMARY | 2025-04-07 15:57 | XMS_ITS | Encounter Summary ---
Author Organization [facility] Address [address] [facility] [address] [place] [phone] Phone Care Team Providers Care Feed Preparation Operator Name Role Phone Herman Figueroa MD Primary Care Provider Encounter Details Date Type Department Care Team (Late st Contact Info) Description 03/22/2021 Procedure Pass Ryann Anand Non-Invasive Cardiology [address] [place] [address] Social History Tobacco Use Types Packs/Day Years [...] Description 06/23/2025 2:30 PM EDT Office Visit Ryann Anand [facility] [address] [facility] 3rd Floor, [address] [place] [address] Bridgette Harrison DNP [address] [facility], [address] [place] [address] [email or web address] documented as of this encounter Visit Diagnoses Not on filedocumented in this encounter Care Teams Feed Preparation Operator Relationship Specialty Start Date End Date Herman Figueroa MD [address] [place] [address] [place] [address] PCP - General 02/01/17 documented as of this encounter Additional Source Comments The information contained in this document represents components of the legal health record. It is not the complete legal health record.[facility]
--- OUTSIDE RECORDS SUMMARY | 2025-04-07 15:57 | XMS_ITS | Clinical Summary ---
Author Organization [facility] Address [address] [facility] [address] [place] [phone] Phone Care Team Providers Care Military Aircraft Designer Name Role Phone Herman Figueroa MD Primary [...] He did have blood work done at [place] in August 2021 that shows a creatinine [...] his trial. Due to him being a Pentecostalism he would like to hold off on [...] off on this due to being a Pentecostalism and wanted to avoid procedures at this [...] ablation procedure. He noted he is a Pentecostalism and does want to avoid procedures which [...] Continue to consider A. fib ablation with co founder and chairman if pt converts back to atrial fibrillation. [...] Description 06/23/2025 2:30 PM EDT Office Visit [facility] [address] [place] [address] 3rd Floor, [address] [place] [address] Bridgette Harrison DNP [address] [place] [address], [address] [address] Health Maintenance Due Date Last Done Comments [...] Date/Time Associated Diagnosis Comments BASIC METABOLIC PANEL (BMP) Routine 11/11/2021 2:45 PM EDT Permanent atrial fibrillation from Last 3 Months or Most Recently Relevant to Health Maintenance Results * (ABNORMAL) Basic metabolic panel (11/11/2021 2:45 PM EDT) SODIUM 140 133 - 146 mmol/L [facility] CHLORIDE 103 96 - 108 mmol/L [facility] POTASSIUM 4.3 3.3 - 5.1 mmol/L [facility] CO2 27 21 - 35 mmol/L [facility] BUN 17 6 - 19 mg/dL [facility] CREATININE 1.10 0.5 - 1.5 mg/dL [facility] GLUCOSE 140(H) 70 - 99 mg/dL [facility] CALCIUM 9.5 8.4 - 10.3 mg/dL [facility] EGFR 71 >59 mL/min/1.7 3m2 [facility] Comment:Estimated glomerular filtration rate calculated using the CKD-EPI refit equation. ANION GAP 14 10 - 20 mmol/L [facility] Blood 11/11/2021 2:45 PM EDT 11/11/2021 2:49 PM EDT Juan Abraham MD LAB BLOOD BKR ORDERABLE S Final Result [facility] [address] [place] [address] from Last 3 Months or Most Recently [...] Payer (Ef fective 2023-Present) Name:Agusto Hilton Member ID:[id number] Relation to Subscriber:Self Name:Agusto Hilton Subscriber ID:[id number] Payer ID:[id number] Group ID:Not on file Type:Medicare Address: [employer] [address] MEDICARE POS PPO REPLACEMENT MEDICARE PART A & B [facility] [place] MEDICARE POS PPO REPLACEMENT MEDICARE PART A & [place] [place] MEDICARE POS PPO REPLACEMENT Care Teams Military Aircraft Designer Relationship Specialty Start Date End Date Herman Figueroa MD [address] [place] [id number] PCP - General 02/01/17 Additional Source Comments The information contained in this document represents components of the legal health record. It is not the complete legal health record.[facility]
--- OUTSIDE RECORDS SUMMARY | 2025-04-07 15:57 | XMS_ITS | Encounter Summary ---
Author Organization [facility] Address [address] [facility] [address] [place] [address] Phone Care Team Providers Care Tie Hacker Name Role Phone Herman Figueroa MD Primary Care Provider Encounter Details Date Type Department Care Team (Late st Contact Info) Description 02/18/2021 Procedure Pass Ryann Anand Non-Invasive Cardiology [address] [place] [address] Social History Tobacco Use Types Packs/Day Years [...] 2:30 PM EDT Office Visit Ryann Anand [facility] [address] [facility] 3rd Floor, [address] [place] [address] Bridgette Harrison DNP [address] [facility], [address] [place] [address] [email or web address] documented as of this encounter Visit Diagnoses Not on filedocumented in this encounter Care Teams Tie Hacker Relationship Specialty Start Date End Date Herman Figueroa MD [address] [place] [address] [place] [address] PCP - General 02/01/17 documented as of this encounter Additional Source Comments The information contained in this document represents components of the legal health record. It is not the complete legal health record.[facility]
--- OUTSIDE RECORDS SUMMARY | 2025-04-07 15:57 | XMS_ITS | Patient Health Record ---
Author Organization Herman Figueroa MD Address [address] [place], [place] [id number] Care Team Providers Care Community Health Promoter Name Role Phone Herman Figueroa Primary Care Provider Allergies Allergen (clinical drug ingredient) Drug/Non Drug Allergy documented on EMR Reaction Allergy Type Onset Date Status atorvastatin Lipitor myalgia Drug Allergy Acti ve Results Component Value Reference Range Notes Complete Blood Count Auto Di ff Reviewed date:08/28/2024 12:43:28 PM Interpretation: Performing Lab:[facility], [address] [place] [phone] Notes/Report: White Blood Count 7.6 4.8-10.8 X10*3/uL [...] 0.0-0.012 X10*3/uL CORRECTED REPORT CORRECTED REPORT Comprehensive [place]. Panel Fa st Reviewed date:08/28/2024 12:52:53 PM Interpretation: Performing Lab:[facility], [address] [place] [phone] Notes/Report: Sodium 143 135-145 mmol/L Potassium 4.4 [...] Panel Reviewed date:08/28/2024 12:42:29 PM Interpretation: Performing Lab:[facility], [address] [place] [phone] Notes/Report: Triglycerides 82 <150 mg/dL Desirable Triglyceride: [...] date:09/05/2024 09:34:36 AM Interpretation:eleonora 09/04 psa Performing Lab:[address] [phone] Notes/Report: PSA,Total (Free>4and<10) 4.37 0.00-4.00 ng/mL PSA methodology: Briceño Alinity i Chemiluminescent Microparticle Immunoassay (CMIA) Microalbumin, Random Reviewed date:08/28/2024 12:45:55 PM Interpretation: Performing Lab:[facility], [address] [place] [phone] Notes/Report: Creatinine Urine 71.78 Microalbumin Urine 9.0 Microalbum/Creatinine Ratio Ur 12.5 <30 ug/mg cr Albumin/Creatinine Ratio Reference Ranges: Normal: < 30 ug/mg creatinine Microalbuminuria: 30 - 300 ug/mg creatinine Clinical Albuminuria: > 300 ug/mg creatinine Hemoglobin A1c Reviewed date:08/28/2024 12:45:47 PM Interpretation: Performing Lab:[facility] [address] [phone] Notes/Report: Hemoglobin A1c % 6.2 <6.0 % [...] average glucose, using the formula of the Y2O-Ouglers Average Glucose study (ADAG), Diabetes Care, Vol.31,#8, 2007 UA ClnCatch+Micro w/rflx Cul t Reviewed date:08/28/2024 12:47:43 PM Interpretation: Performing Lab:[address] [phone] Notes/Report: Urine, Clean Catch Color Urine Yellow Appearance Urine Clear PH 7.5 5.0-9.0 Glucose Urine UA Negative Negative mg/dL Urine Blood Negative Negative Specific [place] - Urine 1.010 1.005-1.025 Urine Protein Negative Neg-Trace mg/dL Urine Ketones Negative Negative mg/dL Nitrite Urine Negative Negative Leukocyte Esterase Urine Negative Negative RBC Urine 0-2 0-2 /HPF WBC Urine 0-5 0-5 /HPF Squamous Epithelial Cell Urine 0-2 0-2 /HPF Bacteria Urine None Seen None Seen Hyaline Casts Urine 0-2 0-2 /LPF PSA,Total (Free>4and<10) Reviewed date:10/15/2024 06:24:08 PM Interpretation:10-13-2024 Performing Lab:[facility], [address] [place] [phone] Notes/Report: PSA,Total (Free>4and<10) 4.75 0.00-4.00 ng/mL PSA methodology: Briceño Alinity i Chemiluminescent Microparticle Immunoassay (CMIA) PSA,Total (Free>4and<10) Reviewed date:11/11/2024 01:16:40 PM Interpretation: Performing Lab:[facility], [address] [place] [phone] Notes/Report: PSA,Total (Free>4and<10) 4.01 0.00-4.00 ng/mL PSA methodology: Briceño Alinity i Chemiluminescent Microparticle Immunoassay (CMIA) PSA,Total (Free>4and<10) Reviewed date:03/16/2025 09:02:32 AM Interpretation:ELEONORA 03/03 Performing Lab:[facility], [address] [place] [phone] Notes/Report: PSA,Total (Free>4and<10) 3.94 0.00-4.00 ng/mL A [...] Briceño Alinity i Chemiluminescent Microparticle Immunoassay (CMIA) Liver Panel Reviewed date:02/26/2025 02:57:21 PM Interpretation: Performing Lab:[facility], [address] [place] [phone] Notes/Report: Bilirubin Total 0.9 0.0-1.0 mg/dL Bilirubin Direct 0.3 0.0-0.5 mg/dL Aspartate Amino Transferase 38 5-37 U/L Alanine Aminotransferase 33 0-40 U/L Total Protein 6.8 6.5-8.0 g/dL Albumin Level 4.3 3.5-5.0 g/dL Alkaline Phosphatase 63 39-117 U/L Glucose Fasting Reviewed date:02/26/2025 02:57:12 PM Interpretation: Performing Lab:[address] [phone] Notes/Report: Glucose Fasting 135 60-99 mg/dL A fasting glucose of 126 mg/dl or greater on more than one occasion is considered diagnostic of diabetes. Lipid Panel with Reflex Reviewed date:02/26/2025 02:57:44 PM Interpretation: Performing Lab:[address] [phone] Notes/Report: Triglycerides 89 <150 mg/dL Desirable Triglyceride: [...] A1c Reviewed date:02/26/2025 12:46:08 PM Interpretation: Performing Lab:[address] [address] Notes/Report: Hemoglobin A1c % 6.4 <6.0 % [...] average glucose, using the formula of the J5R-Phqbllk Average Glucose study (ADAG), Diabetes Care, Vol.31,#8, Nov. 2007 Complete Blood Count Auto Di ff (Not yet reviewed by provider) Interpretation: Performing Lab:[facility], [address] [place] [phone] Notes/Report: White Blood Count 9.5 4.8-10.8 X10*3/uL [...] NRBC Abs Auto 0.000 0.0-0.012 X10*3/uL Comprehensive [place]. Panel Fa st (Not yet reviewed by provider) Interpretation: Performing Lab:[facility], [address] [place] [phone] Notes/Report: Sodium 142 135-145 mmol/L Potassium 4.2 [...] t yet reviewed by provider) Interpretation: Performing Lab:[address] [phone] Notes/Report: PSA,Total (Free>4and<10) 3.35 0.00-4.00 ng/mL A [...] between 4.0 and 10.0 ng/mL. PSA methodology: Apcera i Chemiluminescent Microparticle Immunoassay (CMIA) PSA Free and Total Reviewed date:09/04/2024 03:33:23 PM Interpretation:09-04-2024 Performing Lab:[address] [phone] Notes/Report: Prostate Specific Ag Total 4.4 < OR = 4.0 ng/ mL Percent Free Prostate Spec Ag 16 >25 % (calc) PSA(ng/mL) Free PSA(%) Estimated(x) Probability of Cancer(as%) 0-2.5 (*) Approx. 1 2.6-4.0(1) 0-27(2) 24(3) 4.1-10(4) 0-10 56 11-15 28 16-20 20 21-25 16 >or =26 8 >10(+) N/A >50 References:(1)Mihaela et al.:Urology 60: 469-474 (2002) (2)Mihaela et al.:J.Urol 168: 922-925 (2001) Free PSA(%) Sensitivity(%) Specificity(%) < or = 25 85 19 < or = 30 93 9 (3)Mihaela et al.:GEOFFREY 277: 0251-0175 (1996) (4)Catalona et al.:GEOFFREY 279: 1668-9593 (1997) (x)These estimates vary with age, ethnicity, [...] mind. PSA was performed using the Rob Perry Immunoassay method. Values obtained from different assay methods cannot be used interchangeably. PSA levels, regardless of value, should not be interpreted as absolute evidence of the presence or absence of disease. THIS TEST WAS PERFORMED AT: [facility] [address] [address] ZAN ZAMBRANO MD Free Prostate Spec Ag 0.7 SLIDE REVIEW Reviewed date:08/28/2024 12:42:37 PM Interpretation: Performing Lab:[facility], [address] [place] [phone] Notes/Report: SLIDE REVIEW VERIFIED PSA Free and Total Reviewed date:10/09/2024 07:51:53 AM Interpretation: Performing Lab:[facility], [address] [place] [phone] Notes/Report: Prostate Specific Ag Total 4.2 < OR = 4.0 ng/ mL Percent Free Prostate Spec Ag 14 >25 % (calc) PSA(ng/mL) Free PSA(%) Estimated(x) Probability of Cancer(as%) 0-2.5 (*) Approx. 1 2.6-4.0(1) 0-27(2) 24(3) 4.1-10(4) 0-10 56 11-15 28 16-20 20 21-25 16 >or =26 8 >10(+) N/A >50 References:(1)Mihaela et al.:Urology 60: 469-474 (2002) (2)Mihaela et al.:J.Urol 168: 922-925 (2001) Free PSA(%) Sensitivity(%) Specificity(%) < or = 25 85 19 < or = 30 93 9 (3)Cullenona et al.:GEOFFREY 277: 6164-2217 (1996) (4)Catalona et al.:GEOFFREY 279: 4793[address]2237 (1997) (x)These estimates vary with age, ethnicity, [...] mind. PSA was performed using the Rob Perry Immunoassay method. Values obtained from different assay methods cannot be used interchangeably. PSA levels, regardless of value, should not be interpreted as absolute evidence of the presence or absence of disease. THIS TEST WAS PERFORMED AT: [facility] [address] [place] [phone] ZAN ZAMBRANO MD Free Prostate Spec Ag 0.6 Hold Green Gel Reviewed date:10/06/2024 12:26:14 PM Interpretation: Performing Lab:[address] [phone] Notes/Report: Hold Green Gel See Note Specimen held untested for 24 hours; Call to request Chemistry testing. PSA Free and Total Reviewed date:11/12/2024 02:21:23 PM Interpretation: Performing Lab:[facility], [address] [place] [phone] Notes/Report: Prostate Specific Ag Total 3.3 < OR = 4.0 ng/ mL Percent Free Prostate Spec Ag 15 >25 % (calc) PSA(ng/mL) Free PSA(%) Estimated(x) Probability of Cancer(as%) 0-2.5 (*) Approx. 1 2.6-4.0(1) 0-27(2) 24(3) 4.1-10(4) 0-10 56 11-15 28 16-20 20 21-25 16 >or =26 8 >10(+) N/A >50 References:(1)Mihaela et al.:Urology 60: 469-474 (2002) (2)Mihaela et al.:J.Urol 168: 922-925 (2001) Free PSA(%) Sensitivity(%) Specificity(%) < or = 25 85 19 < or = 30 93 9 (3)Mihaela et al.:GEOFFREY 277: 0206-2958 (1996) (4)Catalona et al.:GEOFFREY 279: 4748-4993 (1997) (x)These estimates vary with age, ethnicity, [...] mind. PSA was performed using the Rob Perry Immunoassay method. Values obtained from different assay methods cannot be used interchangeably. PSA levels, regardless of value, should not be interpreted as absolute evidence of the presence or absence of disease. THIS TEST WAS PERFORMED AT: [facility] [address] [address] ZAN ZAMBRANO MD Free Prostate Spec Ag 0.5 Hold Gold Reviewed date:02/26/2025 12:46:16 PM Interpretation: Performing Lab:[facility], [address] [place] [phone] Notes/Report: Hold Gold See Note Specimen held untested for 24 hours; Call to request Chemistry testing. Hold Lav - Possible Hematolo gy (Not yet reviewed by provider) Interpretation: Performing Lab:[facility], [address] [place] [phone] Notes/Report: Hold Lav - Possible Hematology SEE NOTE Specimen will be held untested for 8 hours. Call Hematology if testing is desired. NT Pro B Type Natriuretic Pe pt (Not yet reviewed by provider) Interpretation: Performing Lab:[facility], [address] [place] [phone] Notes/Report: NT Pro B Type Natriuretic Pept 1511.9 <300 pg/mL Reference Range: Age Group (years) NT-proBNP (pg/ml) Interpretation All <300 Negative: HF unlikely For patients presenting to the ED with clinical suspicion of new onset or worsening HF, see below: 18 to <50 >299.9 to <450.0 Grayzone: Consider 50 to 75 >299.9 to <900.0 other causes of >75 >299.9 to <1800.0 NT-proBNP elevation 18 to <50 >449.9 Positive: HF likely 50-75 >899.9 >75 >1799.9 Note: Elevated NT-proBNP levels should be interpreted in the context of other clinical information. 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) Referral Organization Herman Figueroa MD Referring Provider First Name Herman Referring Provider Last Name [place] Referring Provider Speciality Internal M edicine Referred Provider Angelo Smith Referred Provider Specialty Cardiovascul ar Disease General Notes Keisha Worthington 1 05/03/2024 02:20:13 PM >referral info faxed Referral Priority Routine Referral Appointment Date 08/25/2025 Medications Medication SIG (Take, Route, Frequency, Duration) Notes Start Date End Date Status Digoxin 125 MCG TAKE 1 TABLET ORALLY ONCE EVERY OTHER DAY 90 DAYS Active Centrum Silver - as directed Orally Active Triamcinolone Acetonide 0.1 % 1 application Externally Two times a Week for 14 days 02/23/2022 Active Pravastatin Sodium 20 MG 1 tablet Orally Once a day for 90 days 12/04/2019 Active Tiadylt ER 360 MG TAKE 1 CAPSULE BY [facility] EVERY DAY for 90 Active Hyoscyamine Sulfate ER 0.375 mg TAKE 1 TABLET DAILY Orally once a day for 90 days Active Albuterol Sulfate HFA 108 (90 Base) MCG/ACT INHALE 2 PUFFS EVERY 4 HOURS NEEDED (30 DAY SUPPLY) for 30 Active Xarelto 20 MG TAKE 1 TABLET DAILY WITH FOOD ORALLY ONCE A DAY 90 DAYS Active Metoprolol Tartrate 100 MG 1 tablet with food Orally Twice a day for 90 days 09/12/2024 Active Immunizations Vaccine Route Administration Date Status [...] Problem Status W/U Status Risk Notes Problem 733163916 Reflux esophagit is (K21.00) Active confirmed Problem 25815162 Statin intoleran ce (Z78.9) Active confirmed Problem 567212108 Paroxysmal atria l fibrillation (I48.0) Active confirmed Problem 01447299 Hypercalcemia (E83.52) Active confirme d Problem Ankylosing spondylitis (3874817) Ankylosing spondylitis of thoracic region (M45.4) Active confirmed Problem 211245288 Mild intermitten t asthma without complication (J45.20) Active confirmed Problem 2699198 Prediabetes (R73.09) Active confirmed Problem 30543227 Intrinsic eczema (L20.84) Active confirmed Problem 29017331 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 confirmed Problem 055120663 Pure hypercholesterolemia (E78.00) Active confirmed Vital Signs Heart Rate 70 /min 04/07/2025 Blood pressure diastolic 60 mm Hg 04/07/2025 Height 70.25 in 04/07/2025 Blood pressure systolic 94 mm Hg 04/07/2025 Weight 196 lbs 04/07/2025 BMI 27.92 kg/m2 04/07/2025 Encounters Encounter Location Date Provider Diagnosis Herman Figueroa MD [address] [place] [id number] 08/28/2024 Herman Figueroa Blood tests for rout ine general physical examination Z00.00 ; Prediabetes R73.09 and Pure hypercholesterolemia E78.00 Herman Figueroa MD [address] [place] [id number] 10/06/2024 Herman Figueroa Athscl heart disease of inupiat coronary artery w/o ang pctrs I25.10 Herman Figueroa MD [address] [place] [address] [id number] 11/11/2024 Herman Figueroa Rising PSA level R97 .20 Herman Figueroa MD [address] [place] [id number] 01/08/2025 Herman Figueroa Elevated PSA R97.20 ; Encounter for administration of vaccine Z23 and Paroxysmal atrial fibrillation I48.0 Herman Figueroa MD [address] [place] [address] [id number] 02/26/2025 Herman Figueroa Pure hypercholestero lemia E78.00 and Prediabetes R73.09 Herman Figueroa MD [address] [place] [address] [id number] 04/07/2025 Herman Figueroa Pure hypercholestero lemia E78.00 ; Paroxysmal atrial fibrillation I48.0 ; Athscl heart disease of inupiat coronary artery w/o ang pctrs I25.10 and Mild intermittent asthma without complication J45.20 Herman Figueroa MD [address] [place] [id number] 04/17/2024 Herman Figueroa Ankylosing spondylit is of thoracic region M45.4 and Mild intermittent asthma without complication J45.20 Herman Figueroa MD [address] [place] [address] [id number] 06/12/2024 Herman Swatiardipeña Paroxysmal atrial fibrillation I48.0 and Cerumen impaction H61.20 Herman Figueora MD [address] [place] [id number] 09/04/2024 Herman Figueroa Athscl heart disease of inupiat coronary artery w/o ang pctrs I25.10 ; Annual physical exam Z00.00 ; Paroxysmal atrial fibrillation I48.0 ; Elevated PSA R97.20 ; Hypercalcemia E83.52 ; Pure hypercholesterolemia E78.00 ; Mild intermittent asthma without complication J45.20 and Reflux esophagitis K21.00 Herman Figueroa MD [address] [place] [id number] 10/13/2024 Herman Figueroa Rising PSA level R97 .20 and Mild intermittent asthma without complication J45.20 Herman Figueroa MD [address] [place] [id number] 03/03/2025 Herman Figueroa Paroxysmal atrial fibrillation I48.0 ; Athscl heart disease of inupiat coronary artery w/o ang pctrs I25.10 and Pure hypercholesterolemia E78.00 Herman Figueroa MD [address] [place] [id number] 07/08/2024 Herman Figueroa Paroxysmal atrial fibrillation I48.0 Herman Figueroa MD [address] [place] [address] [id number] 07/17/2024 Herman Figueroa MD [address] [place] [id number] 09/09/2024 Herman Figueroa Athscl heart disease of inupiat coronary artery w/o ang pctrs I25.10 Herman Figueroa MD [address] [place] [address] [id number] 09/12/2024 Herman Figueroa MD [address] [place] [address] [id number] 09/16/2024 Herman Figueroa MD [address] [place] [id number] 01/20/2025 Herman Figueroa Assessments Encounter Date Diagnosis (ICD Code) Assessment Notes Treatment Notes Treatment Clinical Notes Section Notes 08/28/2024 Blood tests for rout ine general physical examination (ICD-10 - Z00.00) 10/06/2024 Athscl heart disease of inupiat coronary artery w/o ang pctrs (ICD-10 - I25.10) 11/11/2024 Rising PSA level (ICD-10 - R97.20) 01/08/2025 Elevated PSA (ICD-10 - R97.20) 01/08/2025 Encounter for administration of vaccine (ICD-10 - Z23) 02/26/2025 Pure hypercholesterolemia (ICD-10 - E78.00) 04/07/2025 Pure hypercholesterolemia (ICD-10 - E78.00) 04/07/2025 Paroxysmal atrial fibrillation (ICD-10 - I48.0) have him go back to [place] [facility] 04/17/2024 Ankylosing spondylit is of thoracic region [...] good results 09/04/2024 Athscl heart disease of inupiat coronary artery w/o ang pctrs (ICD-10 - [...] and not surgery which made him reliebed 03/03/2025 Paroxysmal atrial fibrillation (ICD-10 - I48.0) needs referral to ANGELIQUE LYN at [facility]/ needs to see cardio first before being referred 07/08/2024 Paroxysmal atrial fibrillation (ICD-10 - I48.0) 09/09/2024 Athscl heart disease of inupiat coronary artery w/o ang pctrs (ICD-10 - I25.10) 08/28/2024 Prediabetes (ICD-10 - R73.09) 01/08/2025 Paroxysmal atrial fibrillation (ICD-10 - I48.0) 02/26/2025 Prediabetes (ICD-10 - R73.09) 04/07/2025 Athscl heart disease of inupiat coronary artery w/o ang pctrs (ICD-10 - I25.10) not having any chest pain 04/17/2024 Mild intermittent asthma without complication (ICD-10 [...] 3 times a day with good relief 03/03/2025 Athscl heart disease of inupiat coronary artery w/o ang pctrs (ICD-10 - I25.10) referral to [facility] 08/28/2024 Pure hypercholesterolemia (ICD-10 - E78.00) 04/07/2025 Mild intermittent asthma without complication (ICD-10 - J45.20) having to use inhaler frequently 09/04/2024 Elevated PSA (ICD-10 - R97.20) will continue to monitor 03/03/2025 Pure hypercholesterolemia (ICD-10 - E78.00) 09/04/2024 Hypercalcemia (ICD-1 0 - E83.52) 09/04/2024 [...] SERIES 07/26/2017 Complete Blood Count Auto Diff 5 Hold Lav - Possible Hematology 5 Comprehensive [place]. Panel Fast 5 PSA,Total (Free>4and<10) 04/07/2025 NT-proBNP 04/07/2025 NT Pro B Type Natriuretic Pept 5 Next Appt Details Provider Name:Hermanfidel Zaidi ier, 06/08/2025 01:45:00 PM, [address] [place] [address], [address], [place], [place], [phone], Provider Name:Herman Jimenez Dyan ier, 09/01/2025 07:15:00 AM, [address] [place] [address], [address], [place], [place], [phone], Provider Name:Herman Barbara Dyan ier, 09/08/2025 02:30:00 PM, [address] [place] [address], [address], [place], [place], [phone], Insurance Providers Payer Name Payer Address Payer Phone Subscriber Number Group Number Insured Name Patient Relationship to Insured Coverage Start Date Coverage End Date [employer] PLAN [address] [facility] [place] [phone] [id number] Agusto Hilton Self - patient is the insured Medical (General) History Medical History History ICD Code colonoscopy 08/22/12 - repeat 10 years Toxoplasmosis colonoscopy done 2020, due 5 yrs 2 polyp s
--- OUTSIDE RECORDS SUMMARY | 2025-04-07 15:57 | XMS_ITS | Encounter Summary ---
Author Organization [facility] Address [address] [facility] [address] [place] [phone] Phone Care Team Providers Care Potato Picker Name Role Phone Herman Figueroa MD Primary Care Provider Reason for Referral * MRI/CAT Scan - Closed Specialty Diagnoses / Procedures Referred By Contac t Referred To Contact Radiology Diagnoses Coronary artery disease involving [place] coronary artery of [place] heart without angina pectoris Procedures NC Myocardial Perfusion Exercise Multiple Octaviano Rowland NP Phone: tel: Referral ID Status Reason Start Date Expiration Date Visits Re quested Visits Authorized [id number] Closed 01/23/2019 04/23/2019 1 1 Encounter Details Date Type Department Care Team (Latest Contact Info) Description 01/21/2019 Transcribe Orders [facility] [address], [address] [place] [address] Octaviano Rowland NP [address] [place] [address] Coronary artery disease involving [place] coronary artery of [place] heart without angina pectoris (Primary Dx) Social [...] Description 06/23/2025 2:30 PM EDT Office Visit [facility] [address] [facility] [address] Floor, [address] [place] [address] HunterBridgetteCORTEZ [address] [facility], [address] [place] [address] [email or web address] documented as of this encounter Results * [...] in SPECT format, reconstructed tomographically and compared [id number] in short axis, horizontal long axis and [...] stress report for full details. Everton Ferrari ELECTRICAL EQUIPMENT TECHNICIAN . Perfusion Comments Stress LV cavity volume [...] Visit Diagnoses Diagnosis Coronary artery disease involving [place] coronary artery of [place] heart without angina pectoris- Primary Coronary artery disease involving [place] coronary artery of [place] heart without angina pectoris documented in this encounter Care Teams Potato Picker Relationship Specialty Start Date End Date Herman Figueroa MD [address] [place] [address] [place] [address] PCP - General 02/01/17 documented as of this encounter Additional Source Comments The information contained in this document represents components of the legal health record. It is not the complete legal health record.[facility]
--- OUTSIDE RECORDS SUMMARY | 2025-04-07 15:57 | XMS_ITS | Encounter Summary ---
Author Organization [facility] Address [address] [facility] [address] [address] [place] [phone] Phone Care Team Providers Care Budget Clerk Name Role Phone Herman Figueroa MD Primary Care Provider Encounter Details Date Type Department Care Team (Late st Contact Info) Description 09/29/2021 Procedure Pass Ryann Anand Non-Invasive Cardiology [address] [place] [address] Social History Tobacco Use Types Packs/Day Years [...] 2:30 PM EDT Office Visit Ryann Anand [facility] [address] [facility] [facility] 3rd Floor, [address] [place] [address] Bridgette Harrison DNP [address] [facility], [address] [place] [address] [email or web address] documented as of this encounter Visit Diagnoses Not on filedocumented in this encounter Care Teams Budget Clerk Relationship Specialty Start Date End Date Herman Figueroa MD [address] [place] [address] [place] [address] PCP - General 02/01/17 documented as of this encounter Additional Source Comments The information contained in this document represents components of the legal health record. It is not the complete legal health record.[facility]
--- OUTSIDE RECORDS SUMMARY | 2025-04-07 15:58 | XMS_ITS | Encounter Summary ---
Author Organization [facility] Address [address] [facility] [address] [address] [place] [id number] Phone Care Team Providers Care Medical Assistant Prn Name Role Phone Herman Figueroa MD Primary Care Provider Encounter Details Date Type Department Care Team (Late st Contact Info) Description 11/23/2022 Procedure Pass Ryann [facility] [address] [place], [place] [id number] Social History Tobacco Use Types Packs/Day Years [...] 2:30 PM EDT Office Visit Ryann Anand [facility] [address] [facility] [address], [address] [place], [place] [id number] Bridgette Harrison DNP [address] [facility], [address] [place] [address] [email or web address] documented as of this encounter Visit Diagnoses Not on filedocumented in this encounter Care Teams Medical Assistant Prn Relationship Specialty Start Date End Date Herman Figueroa MD [address] [place] [address] [place] [address] PCP - General 02/01/17 documented as of this encounter Additional Source Comments The information contained in this document represents components of the legal health record. It is not the complete legal health record.[facility]
--- OUTSIDE RECORDS SUMMARY | 2025-04-07 15:58 | XMS_ITS | Patient Health Record ---
Author Organization [facility] Address [address] [place] [address] Care Team Providers Care Safety Deposit Clerk Name Role Phone Herman Figueroa MD Primary Care Provider Jose Gonzalez Unavailable [phone] Allergies Allergen (clinical drug ingredient) Drug/Non Drug Allergy documented on EMR Reaction Allergy Type Onset Date Status seasonal allergies (uncoded) Unknown Allergy Active Reason For Referral No Information Medications Medication SIG (Take, Route, Frequency, Duration) Notes Start Date End Date Status Cholestyramine 4 GM/DOSE Powder 1/2 to 1 scoop Orally QD or BID for loose stools; Duration: 30 day(s) 08/24/2020 Active Hyoscyamine Sulfate ER 0.375 MG Tablet Extended Release 12 Hour 1 tablet Orally every 12 hrs; Duration: 30 day(s) QD in afternoon Active Sotalol HCl 120 MG Tablet 1 tablet Orally bid Active Xarelto 20 MG Tablet 1 tablet with food Orally Once a day; Duration: 30 day(s) Active ProAir HFA Active Pravastatin Sodium 20 MG Tablet 1 tablet Orally Once a day Active Immunizations Vaccine Route Administration Date Status Comme nts Influenza Unknown 12/16/2019 Administered Social History Social History Additional Details Category Social Info Options Details Miscellaneous: Marital status: Occupation: Works at [employer] in [place] Section Notes: Nonsmoker; a few drinks on occasionally Nonsmoker; a few drinks on occasionally Problems Problem Type SNOMED Code ICD Code Onset Dates Problem Status W/U Status Risk Notes Problem Irritable bowel syndrome with diarrhea (641524605) Irritable bowel syndrome with diarrhea (K58.0) Active confirmed Problem Abnormal feces (686896996) Heme + stool (R19.5) Active confirmed Problem Diverticulosis of colon (898897824) Diverticulosis of colon (K57.30) Active confirmed Plan Of Treatment Pending Test Test Name Order Date CELIAC PANEL #10 08/24/2020 Pathology 10/01/2020 Future Test Test Name Order Date COLONOSCOPY 07/04/2012 COLONOSCOPY 08/24/2020 Insurance Providers Payer Name Payer Address Payer Phone Subscriber Number Group Number Insured Name Patient Relationship to Insured Coverage Start Date Coverage End Date [facility] [id number] [place] [id number] [phone] [id number] GINA RODRIGUEZ Self - patient is the insured Medical (General) History Medical History History ICD Code Hiatal hernia-occasional GERD-better wit h change of diet Cardiac stent placement x 1 in 2008-no M I-fine since Allergies-? asthma Denies CO,DM,CVA,renal disease Hyperlipidemia Afib Negative screening colonoscopy in 08/2012 IBS-longstanding > 20 years Surgical History Surgery Date(Month/Year) Cholecystecomy in 2001 Cyst removed from back
--- OUTSIDE RECORDS SUMMARY | 2025-04-07 15:59 | XMS_ITS | Encounter Summary ---
Author Organization [facility] Address [address] [facility] [address] [place] [address] Phone Care Team Providers Care Housing Liaison Name Role Phone Herman Figueroa MD Primary Care Provider Encounter Details Date Type Department Care Team (Late st Contact Info) Description 01/11/2021 Procedure Pass Ryann [facility] [address] [place] [address] Social History Tobacco Use Types Packs/Day Years [...] 2:30 PM EDT Office Visit Ryann Anand [facility] [address] [facility] [address], [address] [place] [address] Bridgette Harrison DNP [address] [facility], [address] [place] [address] [email or web address] documented as of this encounter Visit Diagnoses Not on filedocumented in this encounter Care Teams Housing Liaison Relationship Specialty Start Date End Date Herman Figueroa MD [address] [place] [address] [facility] [place] [address] PCP - General 02/01/17 documented as of this encounter Additional Source Comments The information contained in this document represents components of the legal health record. It is not the complete legal health record.[facility]
== END 2025-04-07 14:40 | disposition home or self-care (01) ==
LOC: HO.LNP 14:39
PROVIDERS: Visit Provider Internal Medicine
DX: Z12.5 Encounter for screening for malignant neoplasm of prostate (principal); E78.00 Pure hypercholesterolemia, unspecified
CPT/HCPCS: 80053; 83880; 84153; 85025